=== PATIENT | male | born 1945 | race American Indian/Alaskan Native ===

== ENCOUNTER → 2017-04-29 | Outpatient (CLI) | payer MEDICARE, OTHER, SELFPAY | PROVIDERS: PCP Physician Assistant; Visit Provider Physician Assistant | DX: R60.0 Localized edema (principal); M79.605 Pain in left leg | CPT/HCPCS: 36415; 80053; 80061; 82043; 82570; 83880; 85025; 85379; 93971 ==

== ENCOUNTER → 2017-12-09 09:45 | Outpatient (CLI) | payer MEDICARE, OTHER, SELFPAY ==
--- NOTE | 2017-12-09 | DI.RAD.S_ITS ---
PROCEDURE: XR CHEST 2V INDICATIONS: COUGH TECHNIQUE: 2 views of the chest were acquired. COMPARISON: [facility], , CHEST 1 VIEW, 01/26/2008, 12:43. [facility], RG, XR CXR 2 VIEW, 01/28/2006, 13:38. [facility], CR, CHEST 2 VIEW, 04/23/2016, 10:31. [facility], , CHEST 2 VIEW, 05/06/2017, 21:34. [facility], CHEST 1 VIEW, 05/12/2017, 9:22. FINDINGS: Surgical changes and devices: None. Lungs and pleura: There is blunting of the right costophrenic sulcus and focal airspace opacities which appear similar to prior studies dating back to 04/23/16. The lungs are otherwise clear. Mediastinum: Mediastinal contours are normal. Heart size is normal. Bones and chest wall: No suspicious bony abnormalities. Soft tissues appear unremarkable. IMPRESSION: Findings at the right lateral lung base which may represent scarring of the lung and pleura; however superimposed airspace opacities or lung mass cannot be excluded. If further characterization is warranted, short interval followup or CT may be helpful. Dictated by: Amanda Hood M.D. on 12/09/2017 at 10:18 Approved by: Amanda Hood M.D. on 12/09/2017 at 10:19
[2017-12-09 11:44] LABS: Add Manual Diff / Slide Review NO; Basophils Percent Auto 0.6 % (0-2); Eosinophils Percent Auto 0.2 % (2-4); Hematocrit 32.9 % (41-53); Hemoglobin 11.2 g/dL (13.5-17.5); Lymphocytes Percent Auto 12.7 % (25-40); Mean Corpuscular HGB Conc 34.2 % (30-36); Mean Corpuscular Hemoglobin 28.1 PG (26-34); Mean Corpuscular Volume 82.1 fL (80-100); Monocytes Percent Auto 11.3 % (3-14); Neutrophils Absolute Auto 6800 /uL (3000-5900); Neutrophils Percent Auto 75.2 % (50-75); Platelet Count 118 X10^3/uL (150-400); Red Blood Cell Count 4.01 X10^6/uL (4.5-5.9); Red Cell Distribution Width 15.7 % (11.6-14.8)
[2017-12-09 12:00] LABS: BUN Creatinine Ratio 17.3 (6-22); Blood Urea Nitrogen 38 mg/dL (9-20); Calcium 8.7 mg/dL (8.4-10.2); Carbon Dioxide 25 mmol/L (22-32); Chloride 98 mmol/L (98-107); Estimated Glomerular Filt Rate 29.7 mL/min (>60); Glucose 167 mg/dL (80-110); HEMOLYSIS < 15 (0-50); Potassium 5.2 mmol/L (3.4-5.1); Sodium 137 mmol/L (137-145)
== END ==
PROVIDERS: Visit Provider Family Medicine
DX: R05 Cough (principal); I50.9 Heart failure, unspecified; N18.9 Chronic kidney disease, unspecified; R91.8 Other nonspecific abnormal finding of lung field
CPT/HCPCS: 36415; 71046; 80048; 85025

== ENCOUNTER → 2018-01-04 10:55 | Outpatient (CLI) | payer MEDICARE, OTHER, SELFPAY ==
--- NOTE | 2018-01-04 | DI.CT.S_ITS ---
PROCEDURE: CT CHEST WO CON INDICATIONS: 72 year-old female with possible lesion at the right costophrenic sulcus on recent radiographs. TECHNIQUE: Noncontrast 5 mm thick sections acquired from the pulmonary apices to the posterior costophrenic angles. 7 mm thick coronal and sagittal MIP reformats were then acquired. For radiation dose reduction, the following was used: automated exposure control, adjustment of mA and/or kV according to patient size. COMPARISON: [facility], CR, XR CHEST 2V, 12/09/2017, 9:48. [facility], , CHEST 1 VIEW, 05/12/2017, 9:22. FINDINGS: Image quality: Excellent. Lungs and pleura: No acute air space opacities. Posterior right apical scarring is unchanged since 2006. On image 15, 4 mm posterior right upper lobe groundglass opacity is also unchanged since 2005, reassuring for benignity. 3 mm nodule adjacent to the right minor fissure is also unchanged. Medial right lower lobe calcified granuloma is incidentally noted, as well as anteroinferior right upper lobe granuloma. No pleural effusions or pneumothorax. Central and peripheral airways are patent and normal in caliber. Mediastinum: Heart size is normal, status post coronary artery bypass grafting. No pericardial effusion. No mediastinal adenopathy by size criteria. Thoracic aorta and central pulmonary arteries are normal in size. Esophagus is normal in caliber. No hiatal hernia. Bones and chest wall: No suspicious bony lesions. No vertebral body compression fractures. No axillary or supraclavicular adenopathy by size criteria. Thyroid gland is normal in size. Abdomen: Several tiny dependent calcified gallstones are now present. Other visualized upper abdominal solid organs and bowel loops appear normal in the absence of contrast. IMPRESSION: 1. No pathology of the right costophrenic angle to correspond with previously reported radiographic finding. 2. Several right lung nodules are unchanged since 2005, reassuring for benignity. Background pulmonary remote granulomatous disease. 3. Several tiny dependent calcified gallstones appear new since 2007. Dictated by: Sixto Edge M.D. on 01/04/2018 at 12:33 Approved by: Sixto Edge M.D. on 01/04/2018 at 12:42
== END ==
PROVIDERS: Visit Provider Family Medicine
DX: R91.8 Other nonspecific abnormal finding of lung field (principal)
CPT/HCPCS: 71250

== ENCOUNTER 2018-05-27 10:20 | Day surgery (SDC) | payer MEDICARE, OTHER, SELFPAY ==
[2018-05-27 10:45] VITALS: BP 156/83; PULSE 71; RESP 16; TEMP 36.8; O2SAT 98; BMI 31.2
[2018-05-27] MEDS: PROPARACAINE 0.5% OPHTH SOL 2 DROPS EYE-OP (11:01)
[2018-05-27] MEDS: CATARACT EYE COMPOUND (10 DROPS/SYRINGE) 3 DROPS EYE-OP (11:03)
[2018-05-27 11:13] VITALS: BMI 31.2
--- NOTE | 2018-05-27 11:33 | PM.PREOP ---
Pre-operative Note Interval Note Pre-op Check: Yes History & Physical Reviewed by Physician Changes: No
--- NOTE | 2018-05-27 11:37 | PM.OP.1 ---
Procedure & Clinicians Procedure: cataract extraction with intraocular lens implant, right Same procedure as scheduled: Yes Indications: visually significant cataract, nuclear sclerosis Surgeon: Len Medina Operative Notes Procedure in detail: The patient was brought to the operating suite. The correct patient, surgical site and lens were confirmed. 0.5 % tetracaine drops were placed in the left eye. The patient was prepped and draped in the typical sterile manner. A lid speculum was placed in the eye. A paracentesis port was created with a side-port blade. 0.1 mL of 1% preservative free lidocaine was injected into the anterior chamber. Viscoelastic was injected into the anterior chamber. A 2.6mm keratome was used to create a clear corneal temporal incision. Cystotome and Utrata forceps were used to create a continuous curvilinear capsulorrhexis. Balanced salt solution was used to hydrodissect the nucleus. Phacoemulsification was used to remove the lens. The capsular bag was inflated with viscoelastic. A Walls ZBOO +22.5D lens was inserted into the capsule. Viscoelastic was removed and the wound hydrated. The wound was found to be leak free and the eye was assessed to be at normal physiologic pressure. 0.1mL Vigamox was injected into the anterior chamber. The lid speculum was removed and the patient left the operating room in excellent condition. Complications: none Condition: stable Disposition: same day surgery
[2018-05-27] MEDS: MOXIFLOXACIN OPHTH DROPS 3 ML BOTTLE 2 DROPS INJ (12:30)
[2018-05-27] MEDS: PHENYLEPHRINE/LIDOCAINE VIAL (OR) 0.2 ML EYE-OP (12:30)
[2018-05-27] MEDS: CHONDROIDTIN/SOD HYALURONATE 1.05 ML SYRINGE INTRAOCULA (12:31)
[2018-05-27] MEDS: BALANCED SALT IRRIG SOLN NO.2 15 ML IRRIG.SOLN IRR (12:31)
[2018-05-27] MEDS: BALANCED SALT IRRIG SOLN NO.2 500 ML, EPINEPHrine 1 MG IRR (12:32)
[2018-05-27] MEDS: TETRACAINE 0.5% OPHTH DROPS 15 ML 2 DROPS EYE-RIGHT (12:33)
[2018-05-27] MEDS: LIDOCAINE 2% INJ SDV 1 ML INJ (12:34)
[2018-05-27 12:57] VITALS: BP 148/81; PULSE 58; RESP 16; TEMP 36.6; O2SAT 96
== END 2018-05-27 13:08 | disposition home or self-care (01) ==
LOC: OR 10:21
PROVIDERS: Visit Provider Ophthalmology
DX: H25.11 Age-related nuclear cataract, right eye (principal); I10 Essential (primary) hypertension; E66.9 Obesity, unspecified; I51.9 Heart disease, unspecified
CPT/HCPCS: J0171; J2250; J3010

== ENCOUNTER 2020-12-25 10:09 | Observation (INO) | payer MEDICARE, OTHER, SELFPAY ==
[2020-12-25] VITALS (20 sets, daily range): BP systolic 131–164; BP diastolic 85–104; PULSE 97–120; RESP 18–38; TEMP 36.4–37.1; O2SAT 95–99; BMI 34.4; BMI 32.2
--- NOTE | 2020-12-25 10:23 | DI.RAD.S_ITS ---
PROCEDURE: XR CHEST 1V INDICATIONS: chest pain TECHNIQUE: One view of the chest was acquired. COMPARISON: [facility], CR, XR CHEST 2V, 12/09/2017, 9:48. [facility], CR, CHEST 1 VIEW, 05/12/2017, 9:22. FINDINGS: Surgical changes and devices: Sternotomy wires, presumed prior CABG.. Lungs and pleura: Lungs are minimally abnormal with a small degree of interstitial prominence at the right mid and lower lung, with slight prominence of the minor fissure radiodensity suggestive of likelihood of old inflammatory process in this area as the likely cause. This has not appreciably changed from 2017. . No pleural effusions or pneumothorax. Mediastinum: Mediastinal contours appear normal. Heart size is normal. Bones and chest wall: No suspicious bony lesions. Overlying soft tissues appear unremarkable. IMPRESSION: Sternotomy wires, longstanding mild interstitial prominence and thickening of the manual fissure on the right at the mid and lower lung. This is stable from 2017. Presumed scarring from prior inflammatory event. No definite acute disease. Dictated by: Michael Castillo M.D. on 12/25/2020 at 10:40 Approved by: Michael Castillo M.D. on 12/25/2020 at 10:41
[2020-12-25 10:43] LABS: Add Manual Diff / Slide Review NO; Basophils Absolute Auto 100 /uL (0-100); Basophils Percent Auto 0.7 % (0-2); Eosinophils Absolute Auto 100 /uL (0-450); Eosinophils Percent Auto 0.9 % (2-4); Hemoglobin 14.1 g/dL (13.5-17.5); Lymphocytes Absolute Auto 1300 /uL (1100-4500); Lymphocytes Percent Auto 16.3 % (25-40); Mean Corpuscular HGB Conc 32.8 % (30-36); Mean Corpuscular Hemoglobin 26.6 PG (26-34); Monocytes Absolute Auto 600 /uL (0-900); Monocytes Percent Auto 7.9 % (3-14); Neutrophils Absolute Auto 6000 /uL (1500-7000); Neutrophils Percent Auto 74.2 % (50-75); Platelet Count 154 X10^3/uL (150-400); Red Blood Cell Count 5.31 X10^6/uL (4.5-5.9); Red Cell Distribution Width 14.9 % (11.6-14.8); White Blood Cell Count 8.1 X10^3/uL (4.5-11.0)
[2020-12-25 10:55] LABS: Alanine Aminotransferase 16 IU/L (<50); Albumin 3.8 g/dL (3.5-5.0); Alkaline Phosphatase 155 U/L (38-126); Aspartate Aminotransferase 24 IU/L (17-59); BUN Creatinine Ratio 13.4 (6-22); Bilirubin Total 0.7 mg/dL (0.2-1.3); Blood Urea Nitrogen 19 mg/dL (9-20); Calcium 8.9 mg/dL (8.4-10.2); Carbon Dioxide 23 mmol/L (22-32); Chloride 104 mmol/L (98-107); Creatine Kinase 80 U/L (55-170); Estimated Glomerular Filt Rate 48.9 mL/min (>60); Globulin 3.7 g/dL (1.7-4.1); Glucose 285 mg/dL (80-110); HEMOLYSIS < 15 (0-50); Lipase 203 U/L (23-300); Potassium 4.5 mmol/L (3.4-5.1); Sodium 135 mmol/L (137-145); Total Protein 7.5 g/dL (6.3-8.2)
[2020-12-25 11:06] LABS: Troponin I 0.031 ng/mL (0.01-0.034)
--- NOTE | 2020-12-25 11:58 | ED.CHESTPAIN ---
HPI - Chest Pain General Chief Complaint: Chest Pain Stated Complaint: sob/chest pain Time Seen by Provider: 12/25/20 11:56 Source: patient Mode of arrival: Ambulatory Limitations: no limitations History of Present Illness HPI narrative: Increasing shortness of breath and intermittent chest pressure. Patient states he has had shortness of breath and off for the mast month and half and just increasing fatigue but states that he ran out of his medications 4 days ago and has subsequently become much more short of breath. He has also noticed some substernal chest pressure over the last 3 or 4 days. Patient states it does not radiate elsewhere. He has not had any lightheadedness or passing out. He denies any fevers or chills he has had a mild cough but it has been nonproductive. Patient denies any diaphoresis. He denies any abdominal pain. He denies any nausea or vomiting. No diarrhea constipation. He has not had any issues with urination. He denies any new swelling in his extremities. 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 He has some difficulty giving his history but states he had a 4 vessel coronary bypass in 2011, patient states he does not follow cardiology regularly but falls at the [facility] clinic. He knows he takes metformin daily, daily aspirin and medication for blood pressure and probably cholesterol. He states that he was going to go the clinic a week before he ran out of his medications and was told they did have an appointment for another month and had subsequently ran out of his medications awaiting follow-up. He denies any other surgeries besides bypass. No allergies to medications. Tobacco, no alcohol, no illicit. Related Data Home Medications Medication Instructions Recorded Confirmed aspirin 81 mg PO BID #0 01/11/06 12/25/20 carvedilol [Coreg] 6.25 mg PO DAILY #0 05/07/17 12/25/20 atorvastatin 40 mg DAILY 05/27/18 12/25/20 metformin 40 mg DAILY 05/27/18 12/25/20 furosemide 80 mg OR DAILY 12/25/20 12/25/20 Previous Rx's Medication Instructions Recorded lisinopril 5 mg PO QDAY #30 05/15/17 potassium chloride [Klor-Con M20] 20 meq PO [facility] #30 05/15/17 Allergies Allergy/AdvReac Type Severity Reaction Status Date / Time No Known Drug Allergies Allergy Verified 12/25/20 10:24 Review of Systems Review of Systems ROS Unobtainable: All systems reviewed & are unremarkable except as noted in HPI and below Patient History Surgical History S/P CABG x 4 Social History (Updated 12/25/20 @ 12:21 by Sarah Mays DO) household members: spouse Smoking Status: Never smoker Smoking Status: Unknown if ever smoked alcohol intake frequency: holidays/special occasions only Substance Use Type: does not use Exam Narrative Exam Narrative: GENERAL: Alert and oriented x three, obese male the BMI of 34 in mild distress. Patient is lying fairly flat on the bed. HEENT: Head normocephalic, atraumatic, EOMI, pupils reactive, face symmetric, moist mucous membranes NECK: Supple, full range of motion CARDIOVASCULAR: Regular but tachycardic rate and rhythm without murmurs, rubs or gallops. No swelling bilateral lower extremities. RESPIRATORY: Breath sounds equal bilaterally, no wheezes rales or rhonchi. Patient does have mild tachypnea. Speaks in full sentences. ABDOMEN: Soft, nontender. Normoactive bowel sounds all 4 quadrants. No guarding or rebound, rigidity, no mass : No CVA tenderness EXTREMITIES: Normal range of motion, no clubbing or edema. Neurovascularly intact. 2+ pulses bilateral lower extremities. NEUROLOGICAL: Cranial nerves II through XII grossly intact. Moving all extremities SKIN: Warm, dry, no petechiae, no rashes or lesions. Initial Vital Signs Initial Vital Signs: Vital Signs Temperature 97.7 F 12/25/20 10:15 Pulse Rate 118 H 12/25/20 10:15 Respiratory Rate 32 H 12/25/20 10:15 Blood Pressure 133/95 H 12/25/20 10:15 Pulse Oximetry 99 12/25/20 10:15 Course Orders Ordered: ED Orders 12/25/20 10:20 Complete Blood Count AUTO DIFF Stat Comprehensive Metabolic Panel Stat Lipase Stat Troponin & CK Cardiac Panel Stat 12/25/20 10:23 XR chest 1V Stat EKG-12 Lead Stat 12/25/20 12:30 COVID19 - ADMIT (LAMINATOR swab/PCR) Stat 12/25/20 12:32 NT-proBNP (BNP-Adult 18+) Stat Troponin I Stat 12/25/20 14:40 Urinalysis and Microscopic Stat 12/25/20 14:51 CT angio chest PE protocol Stat Acetaminophen (Acetaminophen 325 Mg Tablet) 650 mg PO Q6HR PRN PRN Reason: Fever/Mild Pain (1-3) Aspirin (Aspirin Ec 81 Mg Tablet) 81 mg PO DAILY MIGUEL ANGEL Atorvastatin Calcium (Atorvastatin 20 Mg Tablet) 40 mg PO BEDTIME MIGUEL ANGEL Carvedilol (Carvedilol 3.125 Mg Tablet) 3.125 mg PO BID [facility] Dextrose (Dextrose 50 % In Water 25 Gm/50 Ml Syringe) 25 gm IV PRN PRN PRN Reason: Hypoglycemia Furosemide (Furosemide 40 Mg/4 Ml Vial) 40 mg IV BID [facility] Heparin Sodium (Porcine) (Heparin 5,000 Unit/Ml Vial) 5,000 unit SUBCUT BID [facility] Insulin Human Lispro (Insulin Lispro 100 Unit/Ml 3ml Vial) 0 unit SUBCUT ACHS [facility]; Protocol Last Admin: 12/25/20 16:55 Dose: 3 unit Documented by: ROSS Cosigned by: RADHIKA Naloxone HCl (Naloxone 0.4 Mg/Ml Vial) 0.2 mg IV Q2MIN PRN PRN Reason: Opiate Reversal Discontinued Medications Carvedilol (Carvedilol 3.125 Mg Tablet) 3.125 mg PO NOW ONE Stop: 12/25/20 16:36 Last Admin: 12/25/20 16:59 Dose: 3.125 mg Documented by: ROSS Furosemide (Furosemide 100 Mg/10 Ml Vial) 80 mg IV NOW ONE Stop: 12/25/20 13:16 Last Admin: 12/25/20 13:28 Dose: 80 mg Documented by: TIERRA Reevaluation(s) Reevaluation #1: Patient ambulates he does not drop his pulse ox but he continues to be quite tachycardic and tachypneic. Patient has received Lasix. His pressure is a little bit higher which potentially give him some nitrates. We are attempting to get a list from the [facility] clinic for recent medications. Patients last visit was in 2019. Patient's pulse ox is not drop with ambulation but he is quite tachypneic and tachycardic. Time: 14:29 Vital Signs Vital signs: Vital Signs - 8 hr 12/25/20 11:00 12/25/20 11:30 12/25/20 12:00 Pulse Rate 110 H 111 H 110 H Respiratory Rate 34 H 34 H 35 H Blood Pressure 141/85 H 132/85 143/91 H Pulse Oximetry 97 97 96 12/25/20 12:30 12/25/20 13:00 12/25/20 13:30 Pulse Rate 114 H 113 H 113 H Respiratory Rate 35 H 33 H 33 H Blood Pressure 131/93 H 146/92 H 144/99 H Pulse Oximetry 98 97 97 12/25/20 14:00 12/25/20 14:17 12/25/20 14:18 Pulse Rate 110 H 119 H 120 H Respiratory Rate 33 H 33 H Blood Pressure 151/90 H 138/98 H 153/98 H Pulse Oximetry 97 96 97 12/25/20 14:30 12/25/20 14:31 12/25/20 15:00 Pulse Rate 112 H 112 H 113 H Respiratory Rate 34 H 38 H 37 H Blood Pressure 150/98 H 156/88 H Pulse Oximetry 97 96 98 MDM - Chest Pain Lab Data Attestation: I reviewed the patient's lab results. Result diagrams: 12/25/20 10:20 12/25/20 10:20 Labs: Lab Results 12/25/20 12/25/20 12/25/20 Range/Units 10:20 10:20 12:30 WBC 8.1 (4.5-11.0) X10^3/uL RBC 5.31 (4.5-5.9) X10^6/uL Hgb 14.1 (13.5-17.5) g/dL Hct 43.0 (41-53) % MCV 81.0 (80-100) fL MCH 26.6 (26-34) PG MCHC 32.8 (30-36) % RDW 14.9 H (11.6-14.8) % Plt Count 154 (150-400) X10^3/uL Neut % (Auto) 74.2 (50-75) % Lymph % (Auto) 16.3 L (25-40) % [place] % (Auto) 7.9 (3-14) % Eos % (Auto) 0.9 L (2-4) % Baso % (Auto) 0.7 (0-2) % Neut # (Auto) 6000 (9813-5731) /uL Lymph # (Auto) 1300 (0120-4491) /uL [place] # (Auto) 600 (0-900) /uL Eos # (Auto) 100 (0-450) /uL Baso # (Auto) 100 (0-100) /uL Sodium 135 L (137-145) mmol/L Potassium 4.5 (3.4-5.1) mmol/L Chloride 104 (98-107) mmol/L Carbon Dioxide 23 (22-32) mmol/L BUN 19 (9-20) mg/dL Creatinine 1.42 H (0.66-1.25) mg/dL Estimated GFR 48.9 L (>60) mL/min BUN/Creatinine Ratio 13.4 (6-22) Glucose 285 H (80-110) mg/dL Calcium 8.9 (8.4-10.2) mg/dL Total Bilirubin 0.7 (0.2-1.3) mg/dL AST 24 (17-59) IU/L ALT 16 (<50) IU/L Alkaline Phosphatase 155 H (38-126) U/L Total Creatine Kinase 80 (55-170) U/L CK-MB (CK-2) TNP CK-MB (CK-2) Rel Index TNP Troponin I 0.031 (0.01-0.034) ng/mL NT-Pro-B Natriuret Pep (<125) pg/mL Total Protein 7.5 (6.3-8.2) g/dL Albumin 3.8 (3.5-5.0) g/dL Globulin 3.7 (1.7-4.1) g/dL Albumin/Globulin Ratio 1.0 (1.0-2.8) Lipase 203 (23-300) U/L Urine Color Urine Appearance Urine pH (4.5-8.0) Ur Specific [place] (1.000-1.035) Urine Protein (Negative) Urine Glucose (UA) (Negative) g/dL Urine Ketones (NEGATIVE) Urine Occult Blood (Negative) Urine Nitrate (Negative) Urine Bilirubin (NEGATIVE) Urine Urobilinogen (0.2) E.U./dL Ur Leukocyte Esterase (NEGATIVE) Urine RBC (0-5/HPF) Urine WBC (0-5/HPF) Ur Squamous Epith Cells (0-5/HPF) Amorphous Sediment Urine Bacteria (None) Urine Mucus (Negative) Ur Culture Indicated? SARS-CoV-2 (PCR) Negative (Negative) 12/25/20 12/25/20 12/25/20 Range/Units 12:32 12:32 14:40 WBC (4.5-11.0) X10^3/uL RBC (4.5-5.9) X10^6/uL Hgb (13.5-17.5) g/dL Hct (41-53) % MCV (80-100) fL MCH (26-34) PG MCHC (30-36) % RDW (11.6-14.8) % Plt Count (150-400) X10^3/uL Neut % (Auto) (50-75) % Lymph % (Auto) (25-40) % [place] % (Auto) (3-14) % Eos % (Auto) (2-4) % Baso % (Auto) (0-2) % Neut # (Auto) (0204-0549) /uL Lymph # (Auto) (0176-2840) /uL [place] # (Auto) (0-900) /uL Eos # (Auto) (0-450) /uL Baso # (Auto) (0-100) /uL Sodium (137-145) mmol/L Potassium (3.4-5.1) mmol/L Chloride (98-107) mmol/L Carbon Dioxide (22-32) mmol/L BUN (9-20) mg/dL Creatinine (0.66-1.25) mg/dL Estimated GFR (>60) mL/min BUN/Creatinine Ratio (6-22) Glucose (80-110) mg/dL Calcium (8.4-10.2) mg/dL Total Bilirubin (0.2-1.3) mg/dL AST (17-59) IU/L ALT (<50) IU/L Alkaline Phosphatase (38-126) U/L Total Creatine Kinase (55-170) U/L CK-MB (CK-2) CK-MB (CK-2) Rel Index Troponin I 0.028 (0.01-0.034) ng/mL NT-Pro-B Natriuret Pep 7910 H (<125) pg/mL Total Protein (6.3-8.2) g/dL Albumin (3.5-5.0) g/dL Globulin (1.7-4.1) g/dL Albumin/Globulin Ratio (1.0-2.8) Lipase (23-300) U/L Urine Color Yellow Urine Appearance Clear Urine pH 6.0 (4.5-8.0) Ur Specific [place] 1.025 (1.000-1.035) Urine Protein 3+ H (Negative) Urine Glucose (UA) 2+ H (Negative) g/dL Urine Ketones Negative (NEGATIVE) Urine Occult Blood 1+ H (Negative) Urine Nitrate Negative (Negative) Urine Bilirubin Negative (NEGATIVE) Urine Urobilinogen 0.2 (0.2) E.U./dL Ur Leukocyte Esterase Negative (NEGATIVE) Urine RBC 0-1/hpf (0-5/HPF) Urine WBC 0-1/hpf (0-5/HPF) Ur Squamous Epith Cells 0-1 /hpf (0-5/HPF) Amorphous Sediment 1+ Urine Bacteria None seen (None) Urine Mucus 1+ H (Negative) Ur Culture Indicated? Cult not indicated SARS-CoV-2 (PCR) (Negative) Imaging Data Chest x-ray: Radiologist's Impression: [address] [id number] ReportSigned Patient: Garland Guerrero R#: [id number]: 8Acct:[id number]/Sex: 75 / MDate of Service: 12/25/20Loc: EDAccession Number: [id number] Procedure: XR chest 1V Ordering Provider: Sarah Mays D.O. PROCEDURE: XR CHEST 1V INDICATIONS: chest pain TECHNIQUE: One view of the chest was acquired. COMPARISON: [facility], XR CHEST 2V, 12/09/2017, 9:48. [facility], CHEST 1 VIEW, 05/12/2017, 9:22. FINDINGS: Surgical changes and devices: Sternotomy wires, presumed prior CABG.. Lungs and pleura: Lungs are minimally abnormal with a small degree of interstitial prominence at the right mid and lower lung, with slight prominence of the minor fissure radiodensity suggestive of likelihood of old inflammatory process in this area as the likely cause. This has not appreciably changed from 2017. . No pleural effusions or pneumothorax. Mediastinum: Mediastinal contours appear normal. Heart size is normal. Bones and chest wall: No suspicious bony lesions. Overlying soft tissues appear unremarkable. IMPRESSION: Sternotomy wires, longstanding mild interstitial prominence and thickening of the manual fissure on the right at the mid and lower lung. This is stable from 2017. Presumed scarring from prior inflammatory event. No definite acute disease. Dictated by: Michael Castillo M.D. on 12/25/2020 at 10:40 Approved by: Michael Castillo M.D. on 12/25/2020 at 10:41 CT scan - chest: Radiologist's Impression: [address] [id number] Scan ReportSigned Patient: Garland Guerrero HMR#: [id number]: 8Acct:[id number]/Sex: 75 / MDate of Service: 12/25/20Loc: EDAccession Number: [id number] Procedure: CT angio chest PE protocol Ordering Provider: Sarah Mays D.O. PROCEDURE: CT ANGIO CHEST PE PROTOCOL INDICATIONS: shortness of breath TECHNIQUE: After the administration of intravenous contrast, 2 mm thick sections acquired from the pulmonary apices to the posterior costophrenic angles. 3-dimensional maximum intensity projection (MIP) coronal and sagittal reformats were then acquired through the thorax. For radiation dose reduction, the following was used: automated exposure control, adjustment of mA and/or kV according to patient size. COMPARISON: [facility], CT, CT CHEST WO CON, 01/04/2018, 11:13. [facility], CR, XR CHEST 1V, 12/25/2020, 10:25. FINDINGS: Image quality: Excellent. Pulmonary arteries: Pulmonary arteries are normal in size, and demonstrate no intraluminal filling defects to suggest central pulmonary embolism. Lungs and pleura: Lungs are clear. No pleural effusions or pneumothorax. There is a small degree of pleural thickening along the major fissure, without nodularity or effusion. Central and peripheral airways are patent. Mediastinum: Heart size is normal, without pericardial effusion. No mediastinal or hilar adenopathy. Thoracic aorta is normal in caliber and enhancement. Esophagus is normal in caliber, without hiatal hernia. Bones and chest wall: No suspicious bony lesions. Ribs and thoracic spine appear intact throughout. Thyroid gland except for several small areas of what appears to be linear scarring at the lung parenchyma. Mild secondary atelectasis is noted at the posterior lung bases. No pleural effusion or mass is found.. No axillary or supraclavicular adenopathy. Abdomen: Visualized upper abdominal solid organs appear normal in the early arterial phase of enhancement. IMPRESSION: Mild pleural thickening along the right major fissure, no pleural effusion seen. Mild posterior lung base atelectasis. The pleural thickening on the right discussed above was not present in December of 2017. Follow-up noncontrast CT scanning in 3 months is recommended to assess for stability of appearance over time of this finding. The likelihood of active pleural infection or neoplasm is considered low but documentation of stability over time appears warranted. Dictated by: Michael Castillo M.D. on 12/25/2020 at 15:04 Approved by: Michael Castillo M.D. on 12/25/2020 at 15:11 ECG Data Attestation: I personally reviewed and interpreted this ECG as follows: Prior ECG tracings: available for review Interpretation: Sinus tachycardia occasional PVC. Rate of 112 WI 144 QRS of 130 QTC of 520. Patient does have right bundle-branch block. Patient has prior EKG from 05/06/2017, patient has some upsloping of his T-waves in the 5 through 6 that is not appreciated on his prior EKG no other new EKG changes are appreciated. Sinus tachycardia with occassional PVCs, RBBB, rate of 114, pr of 140, qrs 132, QTc 509. Patient's ST segments appear similar to prior with no new acute changes appreciated. [facility] Narrative Medical decision making narrative: A pleasant 75-year-old male comes emergency department with increasing shortness of breath which has been continuous and chest pain/pressure which is not present here in the department. Patient states that he takes medications for prior coronary artery disease and has had bypass. He takes metformin, lisinopril and Lasix and is unsure about his other medications but believes he does take a statin and likely an aspirin. Patient states that he ran out of his medications 4 days ago. He states he tried to get them refilled about a week ago but was told he could follow-up in a month. Patient was having some increasing shortness of breath over the last 6 weeks but acutely worse in the last 2-3 days. He has been afebrile with no other infectious. Patient has been tachypneic and tachycardic in the department he was given Lasix some output. Chest x-ray did not show any obvious pulmonary edema. Discussed with the hospitalist who asked for CT angio as there is no clear pulmonary edema but does show some pleural thickening. Although he does have quite elevated BNP. His troponin is stable here in the department. Patient was accepted and placed here for observation. Discharge Plan Departure Patient Disposition: Admitted as Observation Clinical Impression: Acute exacerbation of CHF (congestive heart failure) Admit Date/Time: 12/25/20 15:25 Admit Provider: Juan Mcnamara
[2020-12-25 13:12] LABS: Troponin I 0.028 ng/mL (0.01-0.034)
[2020-12-25 13:13] LABS: NT-proBNP (BNP-Adult 18+) 7910 pg/mL (<125)
[2020-12-25] MEDS: FUROSEMIDE 100 MG/10 ML VIAL 80 MG IV (13:28)
[2020-12-25 13:56] LABS: COVID19 - ADMIT (NP swab/PCR) Negative (Negative)
--- NOTE | 2020-12-25 14:51 | DI.CT.S_ITS ---
PROCEDURE: CT ANGIO CHEST PE PROTOCOL INDICATIONS: shortness of breath TECHNIQUE: After the administration of intravenous contrast, 2 mm thick sections acquired from the pulmonary apices to the posterior costophrenic angles. 3-dimensional maximum intensity projection (MIP) coronal and sagittal reformats were then acquired through the thorax. For radiation dose reduction, the following was used: automated exposure control, adjustment of mA and/or kV according to patient size. COMPARISON: [facility], CT, CT CHEST WO CON, 01/04/2018, 11:13. [facility], CR, XR CHEST 1V, 12/25/2020, 10:25. FINDINGS: Image quality: Excellent. Pulmonary arteries: Pulmonary arteries are normal in size, and demonstrate no intraluminal filling defects to suggest central pulmonary embolism. Lungs and pleura: Lungs are clear. No pleural effusions or pneumothorax. There is a small degree of pleural thickening along the major fissure, without nodularity or effusion. Central and peripheral airways are patent. Mediastinum: Heart size is normal, without pericardial effusion. No mediastinal or hilar adenopathy. Thoracic aorta is normal in caliber and enhancement. Esophagus is normal in caliber, without hiatal hernia. Bones and chest wall: No suspicious bony lesions. Ribs and thoracic spine appear intact throughout. Thyroid gland except for several small areas of what appears to be linear scarring at the lung parenchyma. Mild secondary atelectasis is noted at the posterior lung bases. No pleural effusion or mass is found.. No axillary or supraclavicular adenopathy. Abdomen: Visualized upper abdominal solid organs appear normal in the early arterial phase of enhancement. IMPRESSION: Mild pleural thickening along the right major fissure, no pleural effusion seen. Mild posterior lung base atelectasis. The pleural thickening on the right discussed above was not present in December of 2017. Follow-up noncontrast CT scanning in 3 months is recommended to assess for stability of appearance over time of this finding. The likelihood of active pleural infection or neoplasm is considered low but documentation of stability over time appears warranted. Dictated by: Michael Castillo M.D. on 12/25/2020 at 15:04 Approved by: Michael Castillo M.D. on 12/25/2020 at 15:11
[2020-12-25 15:14] LABS: Bacteria Urine None Seen
[2020-12-25 15:16] LABS: Appearance Urine UA CLEAR; Bilirubin Urine UA NEGATIVE (NEGATIVE); Color Urine UA YELLOW; Glucose Urine UA 2+ g/dL (Negative); Ketones Urine UA NEGATIVE (NEGATIVE); Leukocyte Esterase Urine UA NEGATIVE (NEGATIVE); Nitrite Urine UA NEGATIVE (Negative); Occult Blood Urine UA 1+ (Negative); Protein Urine UA 3+ (Negative); Specific Gravity Urine UA 1.025 (1.000-1.035); Urobilinogen Urine UA 0.2 E.U./dL (0.2)
[2020-12-25 15:23] LABS: Amorphous Sediment Urine 1+; RBC Urine 0-1/HPF (0-5/HPF); Squamous Epithelial Cell Urine 0-1 /HPF (0-5/HPF); WBC Urine 0-1/HPF (0-5/HPF)
[2020-12-25 15:24] LABS: Culture Indicated Urine Cult Not Indicated; Mucus Urine 1+ (Negative)
--- NOTE | 2020-12-25 15:40 | P.HP_ITS ---
History of Present Illness History of Present Illness Date Patient Seen: 12/25/20 Time Patient Seen: 14:51 Chief complaint: sob/chest pain Narrative: Mr. Guerrero is a 75M with PMH of CAD s/p CABG in 2011, DM, HTN, HL, ?CHF who comes in with shortness of breath. He states he had been in his normal state of health but ran out of his medications four days ago. He started developing some left sided pain in his chest. He has been developing progressively worsening shortness of breath. He is currently not having any chest pressure. He did not have any lightheadedness, no fevers/chills. He has a mild cough that is nonproductive. He has no abdominal pain, nausea, vomiting. He has noticed no swelling in his extremities. He is usually fairly active, does things like splitting wood, but has been short of breath even at rest. In the ED, he was noted to be tachycardic with heart rate of 110s, in sinus. Respiratory rate in 30s, normal o2 sats. Normal blood pressure. Labs showed WBC 8.1, hgb 14.1, na 135, bun 19, creatinine 1.42, last baseline may be 1.2 but was back in May 2017. Blood sugar 285. Trop 0.031, then 0.028. BNP 7910. Cxray showed no acute process. CTA chest showed pleural thickening on the right. COVID negative. UA negative for infection. He was given lasix and admitted for further treatment. Denies family history of CHF Patient History Surgical History S/P CABG x 4 Family & Social History Social History: household members spouse Safety & Behavioral: Feels Safe in Current Yes Environment Been Physically Hurt or No Threatened By a Person Tobacco & Substance use: Smoking Status Never smoker alcohol intake frequency holiday/special occasion Substance Use Type does not use Meds Home Medications and Allergies Home Medications Medication Instructions Recorded Confirmed Type aspirin 81 mg PO QDAY #0 01/11/06 05/27/18 History NITROGLYCERIN (Nitrostat) 0.4 mg SUBLINGUAL PRN #0 01/28/06 History carvedilol [Coreg] 6.25 mg PO BID #0 05/07/17 05/27/18 History furosemide 80 mg OR BID #60 05/15/17 05/27/18 Rx lisinopril 5 mg PO QDAY #30 05/15/17 05/27/18 Rx potassium chloride [Klor-Con M20] 20 meq PO AMCC #30 05/15/17 05/27/18 Rx Oyster Shell + D3 500 mg 05/27/18 History atorvastatin 40 mg DAILY 05/27/18 05/27/18 History metformin 40 mg DAILY 05/27/18 05/27/18 History Allergies Allergy/AdvReac Type Severity Reaction Status Date / Time No Known Drug Allergies Allergy Verified 12/25/20 10:24 Review of Systems Review of Systems Narrative: 14 systems reviewed and negative aside from what is noted in HPI Exam Vital Signs (past 8 hours): - 12/25/20 10:15 12/25/20 10:33 12/25/20 11:00 Temperature 97.7 F Pulse Rate 118 H 110 H 110 H Respiratory Rate 32 H 34 H 34 H Blood Pressure 133/95 H 141/85 H Pulse Oximetry 99 97 97 12/25/20 11:30 12/25/20 12:00 12/25/20 12:30 Temperature Pulse Rate 111 H 110 H 114 H Respiratory Rate 34 H 35 H 35 H Blood Pressure 132/85 143/91 H 131/93 H Pulse Oximetry 97 96 98 12/25/20 13:00 12/25/20 13:30 12/25/20 14:00 Temperature Pulse Rate 113 H 113 H 110 H Respiratory Rate 33 H 33 H 33 H Blood Pressure 146/92 H 144/99 H 151/90 H Pulse Oximetry 97 97 97 12/25/20 14:17 12/25/20 14:18 12/25/20 14:30 Temperature Pulse Rate 119 H 120 H 112 H Respiratory Rate 33 H 34 H Blood Pressure 138/98 H 153/98 H Pulse Oximetry 96 97 97 12/25/20 14:31 12/25/20 15:00 Temperature Pulse Rate 112 H 113 H Respiratory Rate 38 H 37 H Blood Pressure 150/98 H 156/88 H Pulse Oximetry 96 98 Oxygen Delivery Method Room Air Narrative Exam Narrative: GEN: he is in mild respiratory distress HEENT: PERRL, moist mucous membranes NECK: no JVD, trachea midline CV: tachycardic, regular, no murmurs PULM: decreased breath sounds bilaterally, no wheezes, rhonchi, rales ABD: soft, nontender, nondistended, no organomegaly, normal bowel sounds EXT: warm and well perfused, no edema SKIN: no rashes noted NEURO: AAOx3, moving all extremities with no gross focal deficit PSYCH: pleasant, cooperative Objective Labs Result Diagrams: 12/25/20 10:20 12/25/20 10:20 Labs: Laboratory Results - last 24 hr 12/25/20 12/25/20 12/25/20 10:20 10:20 12:30 WBC 8.1 RBC 5.31 Hgb 14.1 Hct 43.0 MCV 81.0 MCH 26.6 MCHC 32.8 RDW 14.9 H Plt Count 154 Neut % (Auto) 74.2 Lymph % (Auto) 16.3 L [place] % (Auto) 7.9 Eos % (Auto) 0.9 L Baso % (Auto) 0.7 Neut # (Auto) 6000 Lymph # (Auto) 1300 [place] # (Auto) 600 Eos # (Auto) 100 Baso # (Auto) 100 Sodium 135 L Potassium 4.5 Chloride 104 Carbon Dioxide 23 BUN 19 Creatinine 1.42 H Estimated GFR 48.9 L BUN/Creatinine Ratio 13.4 Glucose 285 H Calcium 8.9 Total Bilirubin 0.7 AST 24 ALT 16 Alkaline Phosphatase 155 H Total Creatine Kinase 80 CK-MB (CK-2) TNP CK-MB (CK-2) Rel Index TNP Troponin I 0.031 NT-Pro-B Natriuret Pep Total Protein 7.5 Albumin 3.8 Globulin 3.7 Albumin/Globulin Ratio 1.0 Lipase 203 Urine Color Urine Appearance Urine pH Ur Specific Farner Urine Protein Urine Glucose (UA) Urine Ketones Urine Occult Blood Urine Nitrate Urine Bilirubin Urine Urobilinogen Ur Leukocyte Esterase Urine RBC Urine WBC Ur Squamous Epith Cells Amorphous Sediment Urine Bacteria Urine Mucus Ur Culture Indicated? SARS-CoV-2 (PCR) Negative 12/25/20 12/25/20 12/25/20 12:32 12:32 14:40 WBC RBC Hgb Hct MCV MCH MCHC RDW Plt Count Neut % (Auto) Lymph % (Auto) [place] % (Auto) Eos % (Auto) Baso % (Auto) Neut # (Auto) Lymph # (Auto) [place] # (Auto) Eos # (Auto) Baso # (Auto) Sodium Potassium Chloride Carbon Dioxide BUN Creatinine Estimated GFR BUN/Creatinine Ratio Glucose Calcium Total Bilirubin AST ALT Alkaline Phosphatase Total Creatine Kinase CK-MB (CK-2) CK-MB (CK-2) Rel Index Troponin I 0.028 NT-Pro-B Natriuret Pep 7910 H Total Protein Albumin Globulin Albumin/Globulin Ratio Lipase Urine Color Yellow Urine Appearance Clear Urine pH 6.0 Ur Specific Farner 1.025 Urine Protein 3+ H Urine Glucose (UA) 2+ H Urine Ketones Negative Urine Occult Blood 1+ H Urine Nitrate Negative Urine Bilirubin Negative Urine Urobilinogen 0.2 Ur Leukocyte Esterase Negative Urine RBC 0-1/hpf Urine WBC 0-1/hpf Ur Squamous Epith Cells 0-1 /hpf Amorphous Sediment 1+ Urine Bacteria None seen Urine Mucus 1+ H Ur Culture Indicated? Cult not indicated SARS-CoV-2 (PCR) Assessment & Plan Assessment & Plan narrative: Mr. Guerrero is a 75M with PMH CAD, DM, HTN, ?CHF who comes in with shortness of breath after running out of his medications. 1. Acute respiratory distress secondary to acute CHF exacerbation -has run out of of lasix -BNP elevated to over 7k -chest imaging shows no pulmonary edema, or pleural effusions -got IV lasix in ED -order ECHO for further cardiac eval -trend additional troponins to rule out ACS -trend I/Os carefully, and weight daily -fluid restriction and low salt diet 2. Tachycardia -sinus tachycardia on EKG -likely rebound in setting of stopping home medications -reorder home dose of carvedilol -ECHO ordered 3. Diabetes, Type 2, not on insulin -initial glucose in 280s -order sliding scale -check a1c -may need to be on insulin as outpatient 4. Hypertension -off home medications -restart carvedilol -hold lisinopril for now given elevated creatinine 5. Elevated creatinine -creatinine on admission of 1.4 -baseline is unknown, last was stable at 1.2 in 2017 -hold lisinopril for now and repeat in AM 6. Hyperlipidemia -continue home dose of atorvastatin at 40mg 7. CAD s/p cabg -continue aspirin and statin 8. Obesity -encourage diet and exercise as outpatient 9. Pleural thickening -noted on R major fissure -recommend follow up CT within 3 months IVF: none DVT ppx: lovenox sc Diet: cardiac Code: DNR, proxy is Angelina Draper [facility] - Admit I confirm the patient?s Advance Care Plan is present, Code status is documented, Surrogate decision maker is in patient?s record [If Yes, STOP here]: Yes
--- NOTE | 2020-12-25 16:06 | DI.ECHO.S_ITS ---
[place] +---------+ [facility] +---------+ : : [address] : : : : [id number] : : : : Phone: [phone]+ Echocardiogram Report + + :Name: PARISH JACKSON Study Date: 12/26/2020 Height: 67 in : :[facility] ReadingLocation: Weight: 220 lb : : Gender: Male BSA: 2.1 m2 : :: 1945 Age: 75 yrs BP: 156/88 mmHg: :Reason For Study: CONGESTIVE HEART FAILURE : :Ordering Physician: FRANKLYN, : :TRINA Performed By: Ruchi Hernandez : :Referring: TRINA ESTES : + + Interpretation Summary 1) Moderately enlarged left ventricle with severely reduced sysotlic function (EF 15-20%). 2) Mildly enlarged right ventricular size with mildly reduced function. 3) There is mild to moderate aortic regurgitation. 4) There is moderate to severe mitral regurgitation. 5) There is moderate tricuspid regurgitation. 6) The right ventricular systolic pressure is estimated to be at least 43 mmHg based on an estimated right atrial pressure of 8 mm Hg. 7) Compared to the Echo done 05/07/2017, LV is more enlarged but significant change in cardiac structure is noted. Procedure: A two-dimensional transthoracic echocardiogram with color flow and Doppler was performed. The study quality was technically adequate. Comparison is made with the echocardiogram of 05/07/2017. The heart rate ranged between 86-97 bpm during the study. Left Ventricle: The estimated left ventricular end diastolic volume is 174 ml. The left ventricle is moderately dilated. The ejection fraction is estimated to be 15-20%. Right Ventricle: The right ventricle is mildly dilated. Right ventricular systolic function is mildly reduced. Atria: The left atrium is moderately dilated. The right atrium is mildly dilated. Mitral Valve: The mitral valve leaflets appear mildly thickened, but open well. There is mild mitral annular calcification. There is moderate to severe mitral regurgitation. There are multiple regurgitant jets present. Aortic Valve: The aortic valve is mildly calcified. There is no aortic valve stenosis. There is mild to moderate aortic regurgitation. Tricuspid Valve: The tricuspid valve leaflets are thin and pliable. There is moderate tricuspid regurgitation. The right ventricular systolic pressure is estimated to be at least 43 mmHg based on an estimated right atrial pressure of 8 mm Hg. Pulmonic Valve: The pulmonic valve is not well visualized. Great Vessels: The aortic root is normal size. The ascending aorta is mildly enlarged. The IVC is dilated (diameter is greater than 2.1 cm) yet it collapses greater than 50% with a sniff. This suggests a right atrial pressure of 8 mm Hg. Pericardium/ Pleura There is no pericardial effusion. There is no pleural effusion. MMode/2D Measurements & Calculations LVIDd: 6.2 cm LVOT diam: 2.5 cm LVIDs: 5.7 cm Ao root diam: 3.3 cm FS: 7.2 % asc Aorta Diam: 3.7 cm EPSS: 2.4 cm Ao Arch Diam (Prox Trans): 3.3 cm IVSd: 0.88 cm LVPWd: 1.0 cm LV kwong. diameter/BSA (cm/m^2): 2.9 LV sys. diameter/BSA (cm/m^2): 2.7 LA A2 area: 25.4 cm2 RA long axis: 5.4 cm LA A4 area: 26.8 cm2 RA area: 21.2 cm2 LA length (vol): 6.7 cm RA vol: 70.5 ml LA vol: 86.6 ml RA : 33.5 ml/m2 LA vol index: 41.2 ml/m2 IVC diam: 2.1 cm RVD1 (basal): 4.1 cm TAPSE: 1.4 cm Doppler Measurements & Calculations Ao V2 max: 119.8 cm/sec LVOT Max Paul: 41.0 cm/sec Ao V2 mean: 84.4 cm/sec LV V1 max P.67 mmHg Ao max P.8 mmHg LV V1 VTI: 8.5 cm Ao mean P.3 mmHg EMMA(I,D): 2.2 cm2 Ao V2 VTI: 19.0 cm EMMA(V,D): 1.7 cm2 sev ratio: 0.45 EMMA indexed to BSA (cm^2/m^2): 1.0 MV E max paul: 100.5 cm/sec TR max paul: 297.2 cm/sec MV A max paul: 72.1 cm/sec TR max P.3 mmHg MV E/A: 1.4 PA pr(Accel): 44.7 mmHg Med Peak E' Paul: 4.2 cm/sec E/E' med: 23.9 Lat Peak E' Paul: 4.8 cm/sec E/E' lat: 21.0 E/e' average: 22.5 MV dec time: 0.14 sec MR ERO: 0.41 cm2 MR PISA: 4.6 cm2 SV(LVOT): 41.3 ml MR flow rate: 197.1 cm3/sec MR PISA radius: 0.86 cm Reading Physician:12:39 PM
[2020-12-25] MEDS: INSULIN LISPRO 100 UNIT/ML 3ML VIAL SUBCUT ×2 (16:55→20:29)
[2020-12-25] MEDS: carvediloL 3.125 MG TABLET PO ×2 (16:59→20:23)
[2020-12-25] MEDS: ACETAMINOPHEN 325 MG TABLET 650 MG PO (19:33)
[2020-12-25] MEDS: ATORVASTATIN 20 MG TABLET 40 MG PO (20:23)
[2020-12-25] MEDS: HEPARIN 5,000 UNIT/ML VIAL 5000 UNIT SUBCUT (20:25)
[2020-12-25] MEDS: FUROSEMIDE 40 MG/4 ML VIAL IV (20:27)
--- NOTE | 2020-12-25 21:06 | PC.NURSE ---
Admit/Evening Shift Note- Patient arrived to room via stretcher from ER at 1600. Patient able to walk on his own with steady gait from stretcher in hallway to bed. Patient alert and oriented and able to make needs known to staff. Admit questions done, medications reviewed, physical assessment done, and skin check completed. Oriented patient to bed and bed controls, room, lights, phone, menu, bathroom, and call ge/TV remote. Safety measures in place. Patient agrees to call for assistance. Bed alarm activated. CAll ge and phone within reach. Will continue to monitor.
[2020-12-26] VITALS (9 sets, daily range): BP systolic 108–139; BP diastolic 51–90; PULSE 88–101; RESP 17–18; TEMP 36.1–36.9; O2SAT 94–96
[2020-12-26 05:04] LABS: Add Manual Diff / Slide Review NO; Basophils Absolute Auto 100 /uL (0-100); Basophils Percent Auto 1.2 % (0-2); Eosinophils Absolute Auto 100 /uL (0-450); Eosinophils Percent Auto 1.8 % (2-4); Hematocrit 43.6 % (41-53); Hemoglobin 14.2 g/dL (13.5-17.5); Lymphocytes Absolute Auto 1400 /uL (1100-4500); Lymphocytes Percent Auto 20.9 % (25-40); Mean Corpuscular HGB Conc 32.6 % (30-36); Mean Corpuscular Hemoglobin 26.3 PG (26-34); Mean Corpuscular Volume 80.8 fL (80-100); Monocytes Absolute Auto 600 /uL (0-900); Monocytes Percent Auto 9.2 % (3-14); Neutrophils Absolute Auto 4300 /uL (1500-7000); Neutrophils Percent Auto 66.9 % (50-75); Platelet Count 161 X10^3/uL (150-400); Red Blood Cell Count 5.39 X10^6/uL (4.5-5.9); Red Cell Distribution Width 14.8 % (11.6-14.8); White Blood Cell Count 6.5 X10^3/uL (4.5-11.0)
[2020-12-26 05:15] LABS: Hemoglobin A1C% w Est Avg Glu 11.9 % (4.0-6.0)
[2020-12-26 05:21] LABS: Blood Urea Nitrogen 25 mg/dL (9-20); Calcium 9.1 mg/dL (8.4-10.2); Carbon Dioxide 30 mmol/L (22-32); Chloride 100 mmol/L (98-107); Estimated Glomerular Filt Rate 37.4 mL/min (>60); Glucose 245 mg/dL (80-110); HEMOLYSIS < 15 (0-50); Magnesium 2.1 mg/dL (1.6-2.3); Phosphorous 4.2 mg/dL (2.3-3.7); Potassium 4.5 mmol/L (3.4-5.1); Sodium 136 mmol/L (137-145)
--- NOTE | 2020-12-26 06:57 | PC.NURSE ---
ICU notified this RN at 0330 of 6 beat V-Tach, patient asleep, asymptomatic. Provider notified, no orders received.
--- NOTE | 2020-12-26 07:24 | DI.US.S_ITS ---
PROCEDURE: US RENAL COMPLETE INDICATIONS: KRISTEL TECHNIQUE: Real-time scanning was performed of the kidneys and bladder, with image documentation. COMPARISON: [facility], CT, CT CHEST WO CON, 01/04/2018, 11:13. [facility], CT, CT ANGIO CHEST PE PROTOCOL, 12/25/2020, 14:53. FINDINGS: Kidneys: Kidneys are normal in size. Right kidney measures 11.3 cm long; left kidney measures 11 cm long. Right renal cortical thickness is 1.5 cm; left renal cortical thickness is 1.6 cm. Renal cortical echotexture is normal. No hydronephrosis. Right kidney echogenic focus measuring 1 cm. Several echogenic foci is a in the left kidney. No posterior acoustic shadowing appreciated. No suspicious solid mass lesions. Bladder: Pre-void bladder volume is 105 mL. Patient did not void. No intraluminal masses or stones seen. Ureteral jets not seen. Miscellaneous: No free pelvic fluid. IMPRESSION: No hydronephrosis demonstrated. Suspect small nonobstructing kidney stones bilaterally. -Consider CT KUB for further evaluation. Bladder volume 105 cc. Patient did not feel need to void. Dictated by: Skyler Painting M.D. on 12/26/2020 at 11:34 Approved by: Skyler Painting M.D. on 12/26/2020 at 11:38
[2020-12-26 07:32] LABS: Troponin I 0.041 ng/mL (0.01-0.034)
[2020-12-26 09:00] LABS: Creatinine Urine Random 85.3 mg/dL; Sodium Urine Random 123 mmol/L (30-90)
[2020-12-26] MEDS: carvediloL 3.125 MG TABLET PO ×2 (09:00→20:41)
[2020-12-26] MEDS: INSULIN LISPRO 100 UNIT/ML 3ML VIAL SUBCUT ×4 (09:00→20:42)
[2020-12-26] MEDS: ASPIRIN EC 81 MG TABLET PO (09:00)
[2020-12-26] MEDS: SODIUM CHLORIDE 0.9% FLUSH 10 ML IV ×2 (09:01→20:51)
[2020-12-26] MEDS: HEPARIN 5,000 UNIT/ML VIAL 5000 UNIT SUBCUT ×2 (09:01→20:41)
--- NOTE | 2020-12-26 10:53 | CM.DANOTE ---
Patient is a 75 year old male who was admitted on 12/25/20 for SOB/Chest Pain. Pt has [facility] and ON LICENSE OF [facility] and his PCP is Zeina Cano. EMR was reviewed. Per MD, pt with hx of CHF/CABG and admitted for respiratory distress due to CHF exacerbation. Per RN, pt has ambulated in room with steady gait and alert and oriented. SW met bedside with pt and explained role and he confirms that he still lives in [facility] with his in a mobile home with many other family members locally. Pt denies completing DPOA pwk and informally is his spouse Angelina. Pt is retired and states he is independent with ADL's and denies DME but does have a hx of HH a few years ago after being admitted in 2017 for pneumonia/CHF. Pt states he realizes he really needs to change his food and diet and is appreciative that MD placed a Cutting Machine Operator Helper Consult order. Cutting Machine Operator Helper to meet with pt bedside today. Pt preference is home if medically stable and does not anticipate any needs and states his spouse Angelina works until about 1500 but if needed his adult Dtr could provide transport home for him. Per MD and RN, awaiting Echo and labs due to pt's poor kidney function but if results are normal than pt likely stable for d/c later today. Plan: SW to follow for final labs and test results towards confirming safe plan of d/c home with family assist and any further identified needs. JENNIFER Lay Discharge Planning/Care Management CM Discharge Assessment Start: 12/26/20 10:51 Freq: Status: Active Protocol: Document 12/26/20 10:51 BF (Rec: 12/26/20 10:53 BF [id number]) Discharge Planning Assessment Assigned Chicken Picker JENNIFER Rao DPOA/Assigned Designee Name none, informally spouse Angelina Contact Information [phone] Advance Directives? No Advance Directives on File No History Provided By Patient,Medical Record Has Patient been admitted in last 30 No days? Prior Living Arrangements Mobile home Household Members spouse Type of transporation used prior to Relies on Others admit Independent with ADL's Yes Is patient alert and oriented? Yes Needs Assistance With Managing Medications,Home Chores / Shopping Caregiver for Another No Barriers to Discharge No Discharge Plan Home Transportation Arrangement Spouse works until around 1500 but adult Dtr could be available to transport before if pt discharged Referrals Initiated Cutting Machine Operator Helper Additional Comment Leticia Cutting Machine Operator Helper will meet bedside with pt today Whiteboard Updated in Patient Room with Yes name and ext. # of Chicken Picker Review Status In Process Please Provide Date Initial DC 12/26/20 Assessment Was Performed Next Review Type Continued Stay Review
--- NOTE | 2020-12-26 14:19 | PC.NURSE ---
pt with no complaints- reports breathing much improved from date of admission- room air spo2 mid 90's lungs dim but clear no edema noted- renal ultrasound completed due to increased creat and decreased gfr- no obstruction or hydronephrosis noted- echo completed and ef 15-20% - saline locked and taking diet well- cbg 219/288 this shift and covered per md orders- pt ambulated in hallways with geophysical laboratory chief and upon return bacame a bit dyspneic but maintained saturations and recovered within 1-2 minutes- he reports this as normal for him
[2020-12-26 14:53] LABS: BUN Creatinine Ratio 17.4 (6-22); Blood Urea Nitrogen 30 mg/dL (9-20); Calcium 8.9 mg/dL (8.4-10.2); Carbon Dioxide 28 mmol/L (22-32); Chloride 96 mmol/L (98-107); Estimated Glomerular Filt Rate 39.2 mL/min (>60); Glucose 244 mg/dL (80-110); HEMOLYSIS < 15 (0-50); Potassium 4.7 mmol/L (3.4-5.1); Sodium 131 mmol/L (137-145)
[2020-12-26 15:04] LABS: Troponin I 0.019 ng/mL (0.01-0.034)
--- NOTE | 2020-12-26 15:47 | PM.PN.1 ---
Subjective Subjective Date Patient Seen: 12/26/20 Time Patient Seen: 08:47 Interval history: Today he feels his breathing is improved with less shortness of breath, but not completely resolved. Exam Vital Signs (past 8 hours): - 12/26/20 08:20 12/26/20 09:00 12/26/20 12:00 Temperature 97.0 F L 97.0 F L Pulse Rate 96 H 96 H 96 H Respiratory Rate 18 18 Blood Pressure 133/90 119/74 Pulse Oximetry 96 96 Oxygen Delivery Method Room Air Oxygen Flow Rate 0 Narrative Exam Narrative: GEN: no acute distress HEENT: PERRL, moist mucous membranes NECK: no JVD, trachea midline CV: tachycardic, regular, no murmurs PULM: decreased breath sounds bilaterally, no wheezes, rhonchi, rales ABD: soft, nontender, nondistended, no organomegaly, normal bowel sounds EXT: warm and well perfused, no edema SKIN: no rashes noted NEURO: AAOx3, moving all extremities with no gross focal deficit PSYCH: pleasant, cooperative Objective Labs Result Diagrams: 12/26/20 04:52 12/26/20 14:35 Labs: Laboratory Results - last 24 hr 12/25/20 12/26/20 12/26/20 14:40 04:52 04:52 WBC 6.5 RBC 5.39 Hgb 14.2 Hct 43.6 MCV 80.8 MCH 26.3 MCHC 32.6 RDW 14.8 Plt Count 161 Neut % (Auto) 66.9 Lymph % (Auto) 20.[address] [place] % (Auto) 9.2 Eos % (Auto) 1.8 L Baso % (Auto) 1.2 Neut # (Auto) 4300 Lymph # (Auto) 1400 [place] # (Auto) 600 Eos # (Auto) 100 Baso # (Auto) 100 Sodium 136 L Potassium 4.5 Chloride 100 Carbon Dioxide 30 BUN 25 H Creatinine 1.79 H Estimated GFR 37.4 L BUN/Creatinine Ratio 14.0 Glucose 245 H Hemoglobin A1c Calcium 9.1 Phosphorus 4.2 H Magnesium 2.1 Troponin I Ur Random Sodium 123 H Urine Creatinine 85.3 12/26/20 12/26/20 12/26/20 04:52 04:52 14:35 WBC RBC Hgb Hct MCV MCH MCHC RDW Plt Count Neut % (Auto) Lymph % (Auto) [place] % (Auto) Eos % (Auto) Baso % (Auto) Neut # (Auto) Lymph # (Auto) [place] # (Auto) Eos # (Auto) Baso # (Auto) Sodium 131 L Potassium 4.7 Chloride 96 L Carbon Dioxide 28 BUN 30 H Creatinine 1.72 H Estimated GFR 39.2 L BUN/Creatinine Ratio 17.4 Glucose 244 H Hemoglobin A1c 11.9 H Calcium 8.9 Phosphorus Magnesium Troponin I 0.041 H Ur Random Sodium Urine Creatinine 12/26/20 14:35 WBC RBC Hgb Hct MCV MCH MCHC RDW Plt Count Neut % (Auto) Lymph % (Auto) [place] % (Auto) Eos % (Auto) Baso % (Auto) Neut # (Auto) Lymph # (Auto) [place] # (Auto) Eos # (Auto) Baso # (Auto) Sodium Potassium Chloride Carbon Dioxide BUN Creatinine Estimated GFR BUN/Creatinine Ratio Glucose Hemoglobin A1c Calcium Phosphorus Magnesium Troponin I 0.019 Ur Random Sodium Urine Creatinine PFSH Surgical History S/P CABG x 4 Social History (Updated 12/25/20 @ 12:21 by Sarah Mays DO) household members: spouse Smoking Status: Never smoker Assessment & Plan Assessment & Plan narrative: Mr. Guerrero is a 75M with PMH CAD, DM, HTN, ?CHF who comes in with shortness of breath after running out of his medications. 1. Acute respiratory distress secondary to acute on chronic systolic CHF exacerbation -has run out of of lasix at home -BNP elevated to over 7k -chest imaging shows no pulmonary edema, or pleural effusions -got IV lasix in ED -worsened KRISTEL on 12/26 so held lasix -order ECHO for further cardiac eval which showed EF 15-20%, MR, TR, and AR -troponins peaked at 0.04 and now downtrended -trend I/Os carefully, and weight daily -fluid restriction and low salt diet -holding lisinopril due to KRISTEL 2. Tachycardia -sinus tachycardia on EKG -likely rebound in setting of stopping home medications -reorder home dose of carvedilol and improved heart rate -ECHO ordered and notable as above 3. Diabetes, Type 2, not on insulin -initial glucose in 280s -order sliding scale -check a1c which is greater than 11 -start lantus here in the hospital -hold oral diabetes medications due to KRISTEL 4. Hypertension -off home medications -restart carvedilol -hold lisinopril for now given elevated creatinine 5. KRISTEL on CKD stage 3 -creatinine on admission of 1.4 -baseline is unknown, last was stable at 1.2 in 2017 -increased to 1.79 on 12/26 possibly due to diuresis 6. Hyperlipidemia -continue home dose of atorvastatin at 40mg 7. CAD s/p cabg -continue aspirin and statin 8. Obesity -encourage diet and exercise as outpatient 9. Pleural thickening -noted on R major fissure -recommend follow up CT within 3 months IVF: none DVT ppx: lovenox sc Diet: cardiac Code: DNR, proxy is Angelina
--- NOTE | 2020-12-26 16:45 | DIET.PN ---
Dietary Progress Note Assessment: 75y REJI Henriquez admitted for sob/chest px referred to nutrition for heart healthy diet instruction and poorly controlled DM2. Pt lives c nephew in [facility], is from spouse but retains good relationship when we go there for dinner I eat everything. Pt usually shops for the house and will buy healthier options despite trejo, but nephew is value performance specialist. Pt states he is watching his starch intake and only eats small portions of rice/potatoes. Pt does not eat boxed rice or potato products. Pt eats smoked salmon regularly and is an important food in his culture. Usual Day: B: /2 c coffee c pastry L: [facility] [employer] meal D: grilled pork chop, steak, ribs, hamburger made by nephew drinks Sprite or 7up every other day Pt has had DM education c an RD in the past who went into his home to show him the good food and the food to stop buying. Pt feels his weakness is his morning pastry. Pt doesn't know how his nephew seasons meats for dinner. HT: 170.1cm WT: 93.3kg BMI: 32.2 Labs: A1c 11.9 H, BNP 7910 H Nutrition Diagnosis: altered nutrition related laboratory values r/t undesirable food choices aeb pt drinking full sugar soda, pt unsure of seasoning added to meat products daily, pt admitted c poorly controlled DM (A1c 11.9) and CHF exacerbation. Interventions: 1. Discussed A1c and using diagram explained how food choices increases BG and A1c. Helped pt set goal of getting A1c down to 8 in next 3mo through removing full soda sugar from diet and swapping his morning pastry for thin slice ww toast c salt and sugar free PB (which he enjoys) and taking medication as directed by . 2. Collaborated c pt on additional ways to reduce dietary sodium. Encouraged pt to have conversation c his nephew to not use salt in any form while marinating meats for grilling. Garlic and onion powder are fine to use but not garlic salt, onion salt, seasoning salt... Pt very receptive to teaching. Diet Order: CCD sodium and fluid restriction EER:45g CHO at meals, 2g Na daily max
[2020-12-26] MEDS: ATORVASTATIN 20 MG TABLET 40 MG PO (20:41)
[2020-12-26] MEDS: INSULIN GLARGINE 100 UNIT/ML 3ML PEN 10 UNIT SUBCUT (20:42)
[2020-12-27] MEDS: SODIUM CHLORIDE 0.9% FLUSH 10 ML IV ×2 (01:00→08:37)
[2020-12-27 01:20] VITALS: BP 127/76; PULSE 60; RESP 20; TEMP 36.9; O2SAT 93
[2020-12-27 05:51] LABS: Hemoglobin 14.5 g/dL (13.5-17.5); Mean Corpuscular HGB Conc 32.9 % (30-36); Mean Corpuscular Hemoglobin 26.4 PG (26-34); Mean Corpuscular Volume 80.2 fL (80-100); Platelet Count 159 X10^3/uL (150-400); Red Blood Cell Count 5.49 X10^6/uL (4.5-5.9); Red Cell Distribution Width 14.6 % (11.6-14.8); White Blood Cell Count 7.5 X10^3/uL (4.5-11.0)
[2020-12-27 05:54] LABS: HEMOLYSIS < 15 (0-50); Potassium 4.9 mmol/L (3.4-5.1)
[2020-12-27 05:55] LABS: BUN Creatinine Ratio 16.7 (6-22); Blood Urea Nitrogen 29 mg/dL (9-20); Calcium 8.9 mg/dL (8.4-10.2); Carbon Dioxide 29 mmol/L (22-32); Chloride 98 mmol/L (98-107); Estimated Glomerular Filt Rate 38.7 mL/min (>60); Glucose 228 mg/dL (80-110); Sodium 132 mmol/L (137-145)
[2020-12-27 08:02] VITALS: BP 132/84; PULSE 94; RESP 16; TEMP 36.4; O2SAT 93
[2020-12-27] MEDS: HEPARIN 5,000 UNIT/ML VIAL 5000 UNIT SUBCUT (08:35)
[2020-12-27] MEDS: ASPIRIN EC 81 MG TABLET PO (08:35)
[2020-12-27] MEDS: FUROSEMIDE 40 MG TABLET PO (08:35)
[2020-12-27] MEDS: carvediloL 3.125 MG TABLET PO (08:35)
[2020-12-27] MEDS: INSULIN LISPRO 100 UNIT/ML 3ML VIAL SUBCUT ×2 (08:36→12:20)
--- NOTE | 2020-12-27 10:36 | CM.DPNOTE ---
DC Note Reviewed chart, met briefly w/patient. DC order placed by Dr Mcnamara this morning. Patient plans to return home w/spouse No needs identified from this [employer] JW
[2020-12-27 11:32] VITALS: BP 110/72; PULSE 92; RESP 18; TEMP 36.1; O2SAT 95
--- NOTE | 2020-12-27 13:10 | P.DS_ITS ---
History of Present Illness History of Present Illness Chief complaint: sob/chest pain Narrative: Mr. Guerrero is a 75M with PMH of CAD s/p CABG in 2011, DM, HTN, HL, ?CHF who comes in with shortness of breath. He states he had been in his normal state of health but ran out of his medications four days ago. He started developing some left sided pain in his chest. He has been developing progressively worsening shortness of breath. He is currently not having any chest pressure. He did not have any lightheadedness, no fevers/chills. He has a mild cough that is nonproductive. He has no abdominal pain, nausea, vomiting. He has noticed no swelling in his extremities. He is usually fairly active, does things like splitting wood, but has been short of breath even at rest. In the ED, he was noted to be tachycardic with heart rate of 110s, in sinus. Respiratory rate in 30s, normal o2 sats. Normal blood pressure. Labs showed WBC 8.1, hgb 14.1, na 135, bun 19, creatinine 1.42, last baseline may be 1.2 but was back in May 2017. Blood sugar 285. Trop 0.031, then 0.028. BNP 7910. Cxray showed no acute process. CTA chest showed pleural thickening on the right. COVID negative. UA negative for infection. He was given lasix and admitted for further treatment. Denies family history of CHF Discharge Providers Provider Date of admission: 12/25/20 15:25 Discharge Date: 12/27/20 Primary care physician: Zeina Cano MD Consults: 12/26/20 09:23 Consult to Dietitian, Adult Routine Comment: Reason For Exam: diabetes, poorly controlled Discharge provider: Juan Mcnamara MD Summary Hospital Course Discharge Diagnosis: 1. Acute respiratory distress secondary to acute chronic systolic CHF exacerbation 2. Tachycardia 3. Type 2 Diabetes, started on insulin 4. Hypertension 5. CKD stage 3, mild KRISTEL 6. Hyperlipidemia 7. CAD s/p CABG 8. Obesity 9. Pleural thickening, right major fissure Hospital Course: Mr. Guerrero came in with acute respiratory distress, was initially tachypneic, tachycardic and short of breath. He was found to have acute systolic CHF exacerbation. ECHO showed an EF of 15-20% with mitral regurgitation, tricuspid regurgitation, and aortic regurgitation. This was consistent with prior ECHOs. He had BNP of 7k. He had run out of his medicine a few days ago, though the pharmacy said he had not picked up medications since September. He also has not seen a PCP recently, and does not have a rotary rock drilling machine operator. He was diuresed with improvement of his symptoms. His initial creatinine was 1.4, after diursesis remained stable at 1.7. He had no further shortness of breath. His admit weight was documented as 99.8kg and discharge weight 93.4kg. He diuresed over 2L negative. He was also noted to have an A1c greater than 11, he was started on 20U of long acting insulin. He saw the floor plan adjuster about CHF and DM diets. He was noted to have right pleural thickening in his lung along the major fissure. He is recommended to have follow up CT in 3 months as etiology is not clear. He was encouraged to establish close follow up with his PCP and he was referred to a rotary rock drilling machine operator. He was not started on lisinopril due to his kidney function, and his metformin was discontinued due to this same reason. Exam Vital Signs (past 8 hours): - 12/27/20 08:02 12/27/20 11:32 Temperature 97.6 F 96.9 F L Pulse Rate 94 H 92 H Respiratory Rate 16 18 Blood Pressure 132/84 110/72 Pulse Oximetry 93 95 Oxygen Delivery Method Room Air Oxygen Flow Rate 0 Narrative Exam Narrative: GEN: no acute distress HEENT: PERRL, moist mucous membranes NECK: no JVD, trachea midline CV: regular, no murmurs PULM: clear bilaterally, no wheezes, rhonchi, rales ABD: soft, nontender, nondistended, no organomegaly, normal bowel sounds EXT: warm and well perfused, no edema SKIN: no rashes noted NEURO: AAOx3, moving all extremities with no gross focal deficit PSYCH: pleasant, cooperative Objective Labs Result Diagrams: 12/27/20 05:00 12/27/20 05:00 Labs: Laboratory Results - last 24 hr 12/26/20 12/26/20 12/27/20 14:35 14:35 05:00 WBC 7.5 RBC 5.49 Hgb 14.5 Hct 44.0 MCV 80.2 MCH 26.4 MCHC 32.9 RDW 14.6 Plt Count 159 Sodium 131 L Potassium 4.7 Chloride 96 L Carbon Dioxide 28 BUN 30 H Creatinine 1.72 H Estimated GFR 39.2 L BUN/Creatinine Ratio 17.4 Glucose 244 H Calcium 8.9 Troponin I 0.019 12/27/20 05:00 WBC RBC Hgb Hct MCV MCH MCHC RDW Plt Count Sodium 132 L Potassium 4.9 Chloride 98 Carbon Dioxide 29 BUN 29 H Creatinine 1.74 H Estimated GFR 38.7 L BUN/Creatinine Ratio 16.7 Glucose 228 H Calcium 8.9 Troponin I PFSH Surgical History S/P CABG x 4 Social History (Updated 12/25/20 @ 12:21 by Sarah Mays DO) household members: spouse Smoking Status: Never smoker Discharge Plan Discharge Plan Patient Disposition: Home Provider Discharge Comment: Mr Guerrero came in with shortness of breath from a congestive heart failure exacerbation. He received lasix which helped him urinate well and his breathing improved. His ultrasound of his heart showed he has a very weak heart with ejection fraction of 10-15% which he has had before. He also had diabetes that was out of control, he was recommended to start back on insulin. He had run out of his medications which probably caused these problems. He also has some weakened kidney function. For all these issues he should follow very closely with his primary doctor and a rotary rock drilling machine operator. He should be considered to go back on a medication called lisinopril if his kidney function remains stable, but this was not started for now because of his kidneys. He is also recommended to be off of metformin right now due to his kidneys. Discharge orders & Medications Prescriptions: New carvedilol [Coreg] 3.125 mg Tablet 6.25 mg PO BID Qty: 60 RF: 0 insulin detemir U-100 100 unit/mL (3 mL) insulin pen 20 unit SUBCUT BEDTIME Qty: 6 RF: 0 furosemide 40 mg Tablet 40 mg PO BID Qty: 60 RF: 0 Continued aspirin 81 MG tablet,chewable 81 mg PO BID Qty: 0 RF: 0 atorvastatin 40 mg 40 mg DAILY RF: 0 Discontinued carvedilol [Coreg] 6.25 MG tablet 6.25 mg PO DAILY Qty: 0 RF: 0 potassium chloride [Klor-Con M20] 20 MEQ tablet,ER particles/crystals 20 meq PO AMCC Qty: 30 RF: 9 lisinopril 5 MG tablet 5 mg PO QDAY Qty: 30 RF: 9 metformin 40 mg 40 mg DAILY RF: 0 furosemide 80 MG tablet 80 mg OR DAILY RF: 0 Follow up/Referrals: Zeina Cano MD [Primary Care Provider] - Eron Cr MD [Physician] - (systolic congestive heart failure, EF 10- 15%, CKD) Diet/Activity/Treatments Diet: Carb-consistent/Diabetic, Low-sodium and Low-cholesterol Diet comment: 2 liter fluid restriction each day Visit Report/Discharge Packet Instructions: DI for Heart Failure, DI for Diabetes Type 2, Insulin Detemir (rDNA Origin) Injection Discharge Data Primary Care Provider: Zeina Cano Attending Provider: Juan Mcnamara [facility] The patient has current or prior documentation of left ventricular ejection fraction (LVEF) less than 40%, or moderate or severely depressed left ventri cular systolic function.: Yes A. The patient was prescribed or already taking an Angiotensin-Converting Enzyme (CHARLY) Inhibitor, or Angiotensin Receptor Lizzette (ARB).: No B. The patient was prescribed or already taking a beta-lizzette. [If Yes to Both A & B, STOP here]: Yes Patient not prescribed/taking CHARLY or ARB for medical/patient/system reason(s) including (ex: allergy, intolerance, contraindication).: Contraindicated due to KRISTEL
--- NOTE | 2020-12-27 14:33 | PC.NURSE ---
Patient discharged to home with his . IV dc'd intact, ambulating without difficulty. Denies shortness of breath. Discharge instructions and home care handouts reviewed with patient and his . Prescriptions given to patient to fill at pharmacy of his choice. Patient has no further questions or concerns at this time. Escorted out via wheelchair with all his belongings.
== END 2020-12-27 14:39 | disposition home or self-care (01) ==
LOC: ED 11:56 → AC 15:26
PROVIDERS: Admitting Provider Internal Medicine; Emergency Provider Emergency Medicine; PCP Family Medicine; Referring Provider Emergency Medicine; Visit Provider Internal Medicine
DX: I11.0 Hypertensive heart disease with heart failure (principal); I50.23 Acute on chronic systolic (congestive) heart failure; R06.03 Acute respiratory distress; R07.9 Chest pain, unspecified; R06.02 Shortness of breath; Z95.1 Presence of aortocoronary bypass graft; E78.5 Hyperlipidemia, unspecified; I25.10 Atherosclerotic heart disease of native coronary artery without angina pectoris; Z79.84 Long term (current) use of oral hypoglycemic drugs; E66.9 Obesity, unspecified; I13.0 Hypertensive heart and chronic kidney disease with heart failure and stage 1 through stage 4 chronic kidney disease, or unspecified chronic kidney disease; E11.22 Type 2 diabetes mellitus with diabetic chronic kidney disease; N18.30 Chronic kidney disease, stage 3 unspecified; N17.9 Acute kidney failure, unspecified; Z68.34 Body mass index [BMI] 34.0-34.9, adult; Z20.822 Contact with and (suspected) exposure to COVID-19
CPT/HCPCS: 36415; 71045; 71275; 76770; 80048; 80053; 81001; 82550; 82570; 82962; 83036; 83690; 83735; 83880; 84100; 84300; 84484; 85025; 85027; 87635; 93005; 93010; 93306; 96372; 96374; 96376; 99285; C9803; G0378; J1644; J1815; J1940; Q9967

== ENCOUNTER → 2021-02-13 11:25 | Outpatient (ROUT) | payer MEDICARE, OTHER, SELFPAY ==
[2020-12-25 16:34] VITALS: BMI 32.2
[2021-02-13 11:44] LABS: BUN Creatinine Ratio 15.1 (6-22); Blood Urea Nitrogen 27 mg/dL (9-20); Calcium 8.4 mg/dL (8.4-10.2); Carbon Dioxide 26 mmol/L (22-32); Chloride 98 mmol/L (98-107); Estimated Glomerular Filt Rate 37.4 mL/min (>60); Glucose 359 mg/dL (80-110); HEMOLYSIS < 15 (0-50); Potassium 4.4 mmol/L (3.4-5.1); Sodium 131 mmol/L (137-145)
== END ==
PROVIDERS: PCP Family Medicine; Visit Provider Family Medicine
DX: E87.5 Hyperkalemia (principal)
CPT/HCPCS: 80048

== ENCOUNTER 2021-07-06 10:08 | Emergency (ER) | payer MEDICARE, OTHER, SELFPAY ==
[2020-12-25 16:34] VITALS: BMI 32.2
[2021-07-06] VITALS (16 sets, daily range): BP systolic 120–140; BP diastolic 79–98; PULSE 105–115; RESP 22–40; TEMP 36.7; O2SAT 95–100; BMI 37.1
--- NOTE | 2021-07-06 10:13 | DI.RAD.S_ITS ---
PROCEDURE: XR CHEST 1V INDICATIONS: cough, SOB TECHNIQUE: One view of the chest was acquired. COMPARISON: [facility], CR, XR CHEST 1V, 12/25/2020, 10:25. FINDINGS: Surgical changes and devices: Status post median sternotomy. Lungs and pleura: There is right basilar atelectasis and a right perihilar infiltrate. No pleural effusions or pneumothorax. Mediastinum: Mediastinal contours appear normal. Heart size is normal. Bones and chest wall: No suspicious bony lesions. Overlying soft tissues appear unremarkable. IMPRESSION: Right perihilar infiltrate and right basilar infiltrate consistent with pneumonia. Dictated by: Rodri Rodrigues M.D. on 07/06/2021 at 9:49 Approved by: Rodri Rodrigues M.D. on 07/06/2021 at 9:54
[2021-07-06 10:26] LABS: Add Manual Diff / Slide Review NO; Basophils Absolute Auto 100 /uL (0-100); Basophils Percent Auto 0.6 % (0-2); Eosinophils Absolute Auto 100 /uL (0-450); Eosinophils Percent Auto 0.7 % (2-4); Hematocrit 38.1 % (41-53); Hemoglobin 12.5 g/dL (13.5-17.5); Lymphocytes Absolute Auto 1200 /uL (1100-4500); Lymphocytes Percent Auto 14.5 % (25-40); Mean Corpuscular HGB Conc 32.7 % (30-36); Mean Corpuscular Hemoglobin 26.3 PG (26-34); Mean Corpuscular Volume 80.3 fL (80-100); Monocytes Absolute Auto 300 /uL (0-900); Monocytes Percent Auto 4.2 % (3-14); Neutrophils Absolute Auto 6600 /uL (1500-7000); Platelet Count 306 X10^3/uL (150-400); Red Blood Cell Count 4.75 X10^6/uL (4.5-5.9); Red Cell Distribution Width 14.7 % (11.6-14.8); White Blood Cell Count 8.3 X10^3/uL (4.5-11.0)
[2021-07-06 10:40] LABS: INR 1.1 (0.9-1.3); Prothrombin Time 12.1 SECONDS (10.1-12.7)
[2021-07-06 10:43] LABS: Creatine Kinase 69 U/L (55-170); Magnesium 2.1 mg/dL (1.6-2.3); PTT Partial Thromboplastin Tim 33 SECONDS (26.4-36.2)
[2021-07-06 10:47] LABS: Alanine Aminotransferase 21 IU/L (<50); Albumin 3.7 g/dL (3.5-5.0); Alkaline Phosphatase 186 U/L (38-126); Aspartate Aminotransferase 39 IU/L (17-59); BUN Creatinine Ratio 14.8 (6-22); Bilirubin Total 0.6 mg/dL (0.2-1.3); Blood Urea Nitrogen 18 mg/dL (9-20); Calcium 8.5 mg/dL (8.4-10.2); Carbon Dioxide 25 mmol/L (22-32); Chloride 106 mmol/L (98-107); Estimated Glomerular Filt Rate 58.2 mL/min (>60); Globulin 3.6 g/dL (1.7-4.1); Glucose 358 mg/dL (80-110); HEMOLYSIS < 15 (0-50); Sodium 137 mmol/L (137-145); Total Protein 7.3 g/dL (6.3-8.2)
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
[2021-07-06 10:50] LABS: D Dimer 1930 ng/mL (<230)
--- NOTE | 2021-07-06 10:53 | DI.CT.S_ITS ---
PROCEDURE: CT ANGIO CHEST PE PROTOCOL INDICATIONS: SOB, hypoxemia, tachycardia, critical DDimer TECHNIQUE: After the administration of intravenous contrast, 2 mm thick sections acquired from the pulmonary apices to the posterior costophrenic angles. 3-dimensional maximum intensity projection (MIP) coronal and sagittal reformats were then acquired through the thorax. For radiation dose reduction, the following was used: automated exposure control, adjustment of mA and/or kV according to patient size. COMPARISON: [facility], CR, XR CHEST 1V, 07/06/2021, 10:29. [facility], CT, CT ANGIO CHEST PE PROTOCOL, 12/25/2020, 14:53. FINDINGS: Image quality: Excellent. Pulmonary arteries: Pulmonary arteries are normal in size, and demonstrate no intraluminal filling defects to suggest central pulmonary embolism. Lungs and pleura: Lungs are clear. There is right basilar atelectasis and a trace right pleural effusion. Septal thickening is noted dependently, likely mild pulmonary edema No pleural effusions or pneumothorax. Central and peripheral airways are patent. Mediastinum: Heart size is normal, without pericardial effusion. The coronary arteries have atherosclerotic calcifications. Mediastinal lymph nodes are prominent but are unchanged compared to the prior CT and are not pathologically enlarged. Thoracic aorta is normal in caliber and enhancement. Esophagus is normal in caliber, without hiatal hernia. Bones and chest wall: No suspicious bony lesions. Ribs and thoracic spine appear intact throughout. Thyroid gland is normal. No axillary or supraclavicular adenopathy. Abdomen: Visualized upper abdominal solid organs appear normal in the early arterial phase of enhancement. IMPRESSION: 1. No pulmonary embolism. 2. Right basilar atelectasis and trace right pleural effusion. 3. Dependent septal thickening, likely mild pulmonary edema Dictated by: Rodri Rodrigues M.D. on 07/06/2021 at 11:04 Approved by: Rodri Rodrigues M.D. on 07/06/2021 at 11:21
[2021-07-06 10:56] LABS: NT-proBNP (BNP-Adult 18+) 16300 pg/mL (<125); Troponin I 0.035 ng/mL (0.01-0.034)
[2021-07-06 11:01] LABS: Procalcitonin 0.07 ng/mL (<0.5)
[2021-07-06 12:45] LABS: Amorphous Sediment Urine 2+; Bacteria Urine Moderate (10-30); Culture Indicated Urine Specimen Cultured; RBC Urine 5-10/HPF (0-5/HPF); Squamous Epithelial Cell Urine 1-5 /HPF (0-5/HPF); WBC Urine 1-5/HPF (0-5/HPF)
--- NOTE | 2021-07-06 14:20 | PC.NURSE ---
walked pt around unit with pulsox, he stayed between 96-99% without O2
[2021-07-06] MEDS: methylPREDNISolone 125 MG/2 ML VIAL IV (14:53)
[2021-07-06] MEDS: ALBUTEROL/IPRATROPIUM 3 ML AMPUL INH (14:54)
[2021-07-06] MEDS: FUROSEMIDE 40 MG/4 ML VIAL IV (15:16)
[2021-07-06 15:20] LABS: COVID19 -Nasal RAPID Negative (Negative)
== END 2021-07-06 16:27 | disposition home or self-care (01) ==
PROVIDERS: Emergency Provider Emergency Medicine; PCP Family Medicine
DX: I50.9 Heart failure, unspecified (principal); Z20.822 Contact with and (suspected) exposure to COVID-19
CPT/HCPCS: 36415; 71045; 71275; 80053; 81003; 81015; 82550; 82962; 83735; 83880; 84145; 84484; 85025; 85379; 85610; 85730; 87086; 87147; 87635; 93005; 96374; 96375; 99285; C9803; J1940; J2930; Q9967

== ENCOUNTER 2021-07-23 16:18 | Inpatient (IN) | payer MEDICARE, OTHER, SELFPAY ==
[2020-12-25 16:34] VITALS: BMI 32.2
[2021-07-23] VITALS (7 sets, daily range): BP systolic 102–146; BP diastolic 71–80; PULSE 88–110; RESP 26–42; TEMP 36.6–37.1; O2SAT 82–100; BMI 33.3
--- NOTE | 2021-07-23 16:31 | DI.RAD.S_ITS ---
PROCEDURE: XR CHEST 1V INDICATIONS: CHF COVID + TECHNIQUE: One view of the chest was acquired. COMPARISON: [facility], CR, XR CHEST 1 VIEW, 07/22/2021, 17:29. [facility], CT, CT ANGIO CHEST PE PROTOCOL, 07/06/2021, 11:37. [facility], CR, XR CHEST 1V, 07/06/2021, 10:29. FINDINGS: Surgical changes and devices: Sternotomy wires and mediastinal clips are seen Lungs and pleura: Lungs are clear. No pleural effusions or pneumothorax. Mediastinum: Mediastinal contours appear normal. Heart size is moderately enlarged. Atherosclerotic calcification of the aortic arch is noted. Bones and chest wall: No suspicious bony lesions. Age-appropriate bony degenerative changes are seen. Overlying soft tissues appear unremarkable. IMPRESSION: Moderate cardiomegaly, without a focal pulmonary abnormality. Please consider short-term follow-up. Dictated by: Christiano Marsh M.D. on 07/23/2021 at 15:56 Approved by: Christiano Marsh M.D. on 07/23/2021 at 16:02
[2021-07-23 17:40] LABS: Add Manual Diff / Slide Review NO; Basophils Absolute Auto 100 /uL (0-100); Eosinophils Absolute Auto 100 /uL (0-450); Eosinophils Percent Auto 1.3 % (2-4); Hematocrit 38.2 % (41-53); Hemoglobin 12.3 g/dL (13.5-17.5); Lymphocytes Absolute Auto 1000 /uL (1100-4500); Lymphocytes Percent Auto 16.8 % (25-40); Mean Corpuscular HGB Conc 32.2 % (30-36); Mean Corpuscular Hemoglobin 25.9 PG (26-34); Mean Corpuscular Volume 80.4 fL (80-100); Monocytes Absolute Auto 400 /uL (0-900); Monocytes Percent Auto 7.2 % (3-14); Neutrophils Absolute Auto 4300 /uL (1500-7000); Neutrophils Percent Auto 73.7 % (50-75); Platelet Count 223 X10^3/uL (150-400); Red Blood Cell Count 4.75 X10^6/uL (4.5-5.9); Red Cell Distribution Width 16.2 % (11.6-14.8); White Blood Cell Count 5.8 X10^3/uL (4.5-11.0)
--- NOTE | 2021-07-23 17:46 | ED_ITS ---
HPI - SOB/Dyspnea <Jose Cummings MD - Last Filed: 07/29/21 13:21> General Chief Complaint: Shortness of Breath/Dyspnea Stated Complaint: difficulty breathing Time Seen by Provider: 07/23/21 17:34 History of Present Illness HPI Narrative: Patient complains of shortness breath for the past 3 days. History of CHF. Patient states has had swelling in the lower legs. Was admitted here 3 weeks ago at [place]. Denies any fever or chills. He states he took home COVID test and it was positive, he is vaccinated. He states his nephew has COVID. Denies any chest pain. Denies any lung disease. Is not on home oxygen. Related Data Home Medications Medication Instructions Recorded Confirmed insulin detemir U-100 100 unit/mL 40 unit SUBCUT BEDTIME 07/24/21 07/24/21 (3 mL) subcutaneous pen Previous Rx's Medication Instructions Recorded atorvastatin 40 mg tablet 40 mg PO BEDTIME #30 tab 12/27/20 furosemide 40 mg tablet 40 mg PO BID #60 tab 12/27/20 needle (disp) 30 gauge 30 gauge x #100 ea 12/27/20 1/2 carvedilol 3.125 mg tablet (Coreg) 3.125 mg PO Q12H #60 tab 07/25/21 lisinopril 2.5 mg tablet 2.5 mg PO DAILY #30 tab 07/25/21 spironolactone 25 mg tablet 12.5 mg PO DAILY #30 tab 07/25/21 Allergies Allergy/AdvReac Type Severity Reaction Status Date / Time No Known Drug Allergies Allergy Verified 12/25/20 10:24 Review of Systems <Jose Cummings MD - Last Filed: 07/29/21 13:21> Review of Systems Narrative: GENERAL: Denies chills, fatigue, malaise, fever, sweats. HEENT: Denies sinus pain, ear pain, sore throat RESPIRATORY: Positive dyspnea, negative cough CARDIOVASCULAR: Denies chest pain, palpitations GASTROINTESTINAL: Denies nausea, vomiting, abdominal pain : Denies dysuria, frequency, hematuria MUSCULOSKELETAL: denies muscle or bony pain SKIN: Denies rash, skin lesions NEUROLOGIC: Denies weakness, numbness ROS Unobtainable: All systems reviewed & are unremarkable except as noted in HPI and below Patient History <Jose Cummings MD - Last Filed: 07/29/21 13:21> Medical History (Updated 07/24/21 @ 01:29 by RAHEEM Kline) CKD stage 3 due to type 2 diabetes mellitus Coronary artery disease due to type 2 diabetes mellitus Essential hypertension Hyperlipidemia associated with type 2 diabetes mellitus Systolic congestive heart failure Surgical History (Updated 07/24/21 @ 01:31 by ELIEZER Kline) Hx of sternectomy S/P CABG x 4 Family History Mother Congestive heart failure Father Heart attack Social History household members: spouse Smoking Status: Never smoker Smoking Status: Never smoker alcohol intake frequency: holidays/special occasions only Substance Use Type: does not use Exam <Jose Cummings MD - Last Filed: 07/29/21 13:21> Narrative Exam Narrative: GENERAL: in no distress, not toxic not dyspneic HEAD: Normocephalic. EYES: Pupils equal round No scleral icterus. ENT: Mucous membranes moist. NECK: Trachea midline. CARDIOVASCULAR: Regular rate and rhythm without murmurs RESPIRATORY: Clear to auscultation. Breath sounds equal bilaterally. No wheezes, rales, or rhonchi. Patient speaking full sentences. No respiratory distress GASTROINTESTINAL: Abdomen soft, non-tender EXTREMITIES: No gross deformities. There is 3+ bilateral pedal edema BACK: No flank tenderness. NEURO: AOx4. SKIN: Warm and dry PSYCH: Not anxious, is cooperative Initial Vital Signs Initial Vital Signs: Vital Signs Temperature 97.9 F 07/23/21 16:25 Pulse Rate 88 07/23/21 16:25 Respiratory Rate 26 H 07/23/21 16:25 Blood Pressure 146/71 H 07/23/21 16:25 Pulse Oximetry 100 07/23/21 16:25 <Jose Roberto Villatoro DO - Last Filed: 07/24/21 00:06> Initial Vital Signs Initial Vital Signs: Vital Signs Temperature 97.9 F 07/23/21 16:25 Pulse Rate 88 07/23/21 16:25 Respiratory Rate 26 H 07/23/21 16:25 Blood Pressure 146/71 H 07/23/21 16:25 Pulse Oximetry 100 07/23/21 16:25 Course <Jose Cummings MD - Last Filed: 07/29/21 13:21> Course Course Narrative: 6:00 p.m.. Sign out to Dr. Villatoro, labs are pending. Need to reassess patient for possible admission Orders Ordered: Discontinued Medications Acetaminophen (Acetaminophen 325 Mg Tablet) 650 mg PO Q6HR PRN PRN Reason: Fever/Mild Pain (1-3) Albuterol (Albuterol Hfa Mdi 60 Puff/8 Gm Inhaler) 2 puff INH RTQ4HR PRN PRN Reason: Shortness Of Breath Albuterol (Albuterol 2.5 Mg/3 Ml Neb (Adult)) 2.5 mg INH [id number] PRN PRN Reason: Shortness Of Breath Atorvastatin Calcium (Atorvastatin 20 Mg Tablet) 40 mg PO BEDTIME [facility] Last Admin: 07/24/21 21:55 Dose: 40 mg Documented by: ROBERTO Dexamethasone (Dexamethasone 10 Mg/Ml Vial) 6 mg IV NOW ONE Stop: 07/23/21 21:57 Last Admin: 07/24/21 00:53 Dose: 6 mg Documented by: ROBERTO Dexamethasone (Dexamethasone 10 Mg/Ml Vial) 6 mg IV DAILY [facility] Last Admin: 07/25/21 09:08 Dose: 6 mg Documented by: Admin: 07/24/21 08:25 Dose: 6 mg Documented by: VISHNU Dextrose (Dextrose 50 % In Water 25 Gm/50 Ml Syringe) 25 gm IV PRN PRN PRN Reason: Hypoglycemia Enoxaparin Sodium (Enoxaparin 40 Mg/0.4 Ml Syringe) 40 mg SUBCUT DAILY [facility] Last Admin: 07/25/21 09:08 Dose: 40 mg Documented by: Admin: 07/24/21 08:29 Dose: 40 mg Documented by: VISHNU Furosemide (Furosemide 40 Mg/4 Ml Vial) 20 mg IV NOW ONE Stop: 07/23/21 17:46 Last Admin: 07/23/21 17:58 Dose: 20 mg Documented by: JACQUI Furosemide (Furosemide 20 Mg/2 Ml Vial) 60 mg IV NOW ONE Stop: 07/23/21 21:54 Last Admin: 07/24/21 00:53 Dose: 60 mg Documented by: ROBERTO Furosemide (Furosemide 20 Mg/2 Ml Vial) 40 mg IV BID [facility] Last Admin: 07/24/21 08:29 Dose: 40 mg Documented by: VISHNU Furosemide (Furosemide 40 Mg/4 Ml Vial) 40 mg IV BID [facility]IGU[facility] ANGEL Furosemide (Furosemide 40 Mg/4 Ml Vial) 40 mg IV Q8H [facility] Last Admin: 07/25/21 12:54 Dose: 40 mg Documented by: Admin: 07/25/21 03:16 Dose: 40 mg Documented by: Admin: 07/24/21 19:55 Dose: 40 mg Documented by: ROBERTO Remdesivir 200 mg/ Sodium (Chloride) 250 mls @ 250 mls/hr IV NOW ONE Stop: 07/23/21 22:55 Last Infusion: 07/24/21 03:47 Dose: 0 mls/hr Documented by: Admin: 07/24/21 00:53 Dose: 250 mls/hr Documented by: ROBERTO Remdesivir 100 mg/ Sodium (Chloride) 250 mls @ 250 mls/hr IV BEDTIME [facility] ANGEL Stop: 07/27/21 21:59 Insulin Glargine (Insulin Glargine 100 Unit/Ml 3ml Pen) 20 unit SUBCUT BEDTIME [facility] Insulin Glargine (Insulin Glargine 100 Unit/Ml 3ml Pen) 20 unit SUBCUT BID [facility] Last Admin: 07/25/21 09:10 Dose: 20 unit Documented by: VISHNU Self by: JUAN Admin: 07/24/21 21:56 Dose: 20 unit Documented by: ROBERTO Self by: DEBORAH Admin: 07/24/21 08:28 Dose: 20 unit Documented by: VISHNU Self by: RADHIKA Insulin Human Lispro (Insulin Lispro 100 Unit/Ml 3ml Vial) 0 unit SUBCUT ACHS [facility]; Protocol Last Admin: 07/25/21 17:09 Dose: 4 unit Documented by: VISHNU Self by: JUAN Admin: 07/25/21 12:54 Dose: 3 unit Documented by: VISHNU Self by: JUAN Admin: 07/25/21 09:09 Dose: 2 unit Documented by: VISHNU Self by: JUAN Admin: 07/24/21 21:56 Dose: 3 unit Documented by: ROBERTO Self by: DEBORAH Admin: 07/24/21 17:53 Dose: 3 unit Documented by: VISHNU Self by: NASEEM Admin: 07/24/21 12:47 Dose: 4 unit Documented by: VISHNU Hannaigned by: MARIA DEL CARMEN Admin: 07/24/21 08:27 Dose: 3 unit Documented by: VISHNU Hannaigned by: RADHIKA Naloxone HCl (Naloxone 0.4 Mg/Ml Vial) 0.2 mg IV Q2MIN PRN PRN Reason: Opiate Reversal Ondansetron HCl (Ondansetron 4 Mg/2 Ml Inj) 4 mg IV Q8HR PRN PRN Reason: Nausea And Vomiting Pantoprazole Sodium (Pantoprazole Dr 20 Mg Tablet) 20 mg PO 0600 [facility] Last Admin: 07/25/21 05:43 Dose: 20 mg Documented by: Admin: 07/24/21 06:20 Dose: 20 mg Documented by: ROBERTO Sennosides (Sennosides 8.6 Mg Tablet) 17.2 mg PO BEDTIME [facility] Last Admin: 07/24/21 21:55 Dose: 17.2 mg Documented by: ROBERTO Vital Signs Vital signs: Vital Signs - 8 hr 07/23/21 16:25 07/23/21 18:33 07/23/21 19:00 Temperature 97.9 F Pulse Rate 88 103 H 104 H Respiratory Rate 26 H Blood Pressure 146/71 H 102/74 104/76 Pulse Oximetry 100 99 98 07/23/21 19:45 07/23/21 20:00 07/23/21 21:22 Temperature Pulse Rate 104 H 104 H 110 H Respiratory Rate 42 H Blood Pressure 104/74 114/80 Pulse Oximetry 100 99 82 L <Jose Roberto Villatoro, - Last Filed: 07/24/21 00:06> Orders Ordered: Discontinued Medications Acetaminophen (Acetaminophen 325 Mg Tablet) 650 mg PO Q6HR PRN PRN Reason: Fever/Mild Pain (1-3) Albuterol (Albuterol Hfa Mdi 60 Puff/8 Gm Inhaler) 2 puff INH RTQ4HR PRN PRN Reason: Shortness Of Breath Albuterol (Albuterol 2.5 Mg/3 Ml Neb (Adult)) 2.5 mg INH [id number] PRN PRN Reason: Shortness Of Breath Atorvastatin Calcium (Atorvastatin 20 Mg Tablet) 40 mg PO BEDTIME [facility] Last Admin: 07/24/21 21:55 Dose: 40 mg Documented by: ROBERTO Dexamethasone (Dexamethasone 10 Mg/Ml Vial) 6 mg IV NOW ONE Stop: 07/23/21 21:57 Last Admin: 07/24/21 00:53 Dose: 6 mg Documented by: ROBERTO Dexamethasone (Dexamethasone 10 Mg/Ml Vial) 6 mg IV DAILY [facility] Last Admin: 07/25/21 09:08 Dose: 6 mg Documented by: Admin: 07/24/21 08:25 Dose: 6 mg Documented by: VISHNU Dextrose (Dextrose 50 % In Water 25 Gm/50 Ml Syringe) 25 gm IV PRN PRN PRN Reason: Hypoglycemia Enoxaparin Sodium (Enoxaparin 40 Mg/0.4 Ml Syringe) 40 mg SUBCUT DAILY [facility] Last Admin: 07/25/21 09:08 Dose: 40 mg Documented by: Admin: 07/24/21 08:29 Dose: 40 mg Documented by: VISHNU Furosemide (Furosemide 40 Mg/4 Ml Vial) 20 mg IV NOW ONE Stop: 07/23/21 17:46 Last Admin: 07/23/21 17:58 Dose: 20 mg Documented by: JACQUI Furosemide (Furosemide 20 Mg/2 Ml Vial) 60 mg IV NOW ONE Stop: 07/23/21 21:54 Last Admin: 07/24/21 00:53 Dose: 60 mg Documented by: ROBERTO Furosemide (Furosemide 20 Mg/2 Ml Vial) 40 mg IV BID [facility] Last Admin: 07/24/21 08:29 Dose: 40 mg Documented by: VISHNU Furosemide (Furosemide 40 Mg/4 Ml Vial) 40 mg IV BID [facility] Furosemide (Furosemide 40 Mg/4 Ml Vial) 40 mg IV Q8H [facility] Last Admin: 07/25/21 12:54 Dose: 40 mg Documented by: Admin: 07/25/21 03:16 Dose: 40 mg Documented by: Admin: 07/24/21 19:55 Dose: 40 mg Documented by: ROBERTO Remdesivir 200 mg/ Sodium (Chloride) 250 mls @ 250 mls/hr IV NOW ONE Stop: 07/23/21 22:55 Last Infusion: 07/24/21 03:47 Dose: 0 mls/hr Documented by: Admin: 07/24/21 00:53 Dose: 250 mls/hr Documented by: ROBERTO Remdesivir 100 mg/ Sodium (Chloride) 250 mls @ 250 mls/hr IV BEDTIME [facility] Stop: 07/27/21 21:59 Insulin Glargine (Insulin Glargine 100 Unit/Ml 3ml Pen) 20 unit SUBCUT BEDTIME MIGUEL ANGEL Insulin Glargine (Insulin Glargine 100 Unit/Ml 3ml Pen) 20 unit SUBCUT BID [facility] Last Admin: 07/25/21 09:10 Dose: 20 unit Documented by: VISHNU Hannaigned by: JUAN Admin: 07/24/21 21:56 Dose: 20 unit Documented by: ROBERTO Cosigned by: DEBORAH Admin: 07/24/21 08:28 Dose: 20 unit Documented by: VISHNU Self by: RADHIKA Insulin Human Lispro (Insulin Lispro 100 Unit/Ml 3ml Vial) 0 unit SUBCUT ACHS [facility]; Protocol Last Admin: 07/25/21 17:09 Dose: 4 unit Documented by: VISHNU Hannaigned by: JUAN Admin: 07/25/21 12:54 Dose: 3 unit Documented by: VISHNU Self by: JUAN Admin: 07/25/21 09:09 Dose: 2 unit Documented by: VISHNU Self by: JUAN Admin: 07/24/21 21:56 Dose: 3 unit Documented by: ROBERTO Cosigned by: DEBORAH Admin: 07/24/21 17:53 Dose: 3 unit Documented by: VISHNU Self by: NASEEM Admin: 07/24/21 12:47 Dose: 4 unit Documented by: VISHNU Self by: MARIA DEL CARMEN Admin: 07/24/21 08:27 Dose: 3 unit Documented by: VISHNU Self by: RADHIKA Naloxone HCl (Naloxone 0.4 Mg/Ml Vial) 0.2 mg IV Q2MIN PRN PRN Reason: Opiate Reversal Ondansetron HCl (Ondansetron 4 Mg/2 Ml Inj) 4 mg IV Q8HR PRN PRN Reason: Nausea And Vomiting Pantoprazole Sodium (Pantoprazole Dr 20 Mg Tablet) 20 mg PO 0600 [facility] Last Admin: 07/25/21 05:43 Dose: 20 mg Documented by: Admin: 07/24/21 06:20 Dose: 20 mg Documented by: ROBERTO Sennosides (Sennosides 8.6 Mg Tablet) 17.2 mg PO BEDTIME [facility] Last Admin: 07/24/21 21:55 Dose: 17.2 mg Documented by: ROBERTO Vital Signs Vital signs: Vital Signs - 8 hr 07/23/21 16:25 07/23/21 18:33 07/23/21 19:00 Temperature 97.9 F Pulse Rate 88 103 H 104 H Respiratory Rate 26 H Blood Pressure 146/71 H 102/74 104/76 Pulse Oximetry 100 99 98 07/23/21 19:45 07/23/21 20:00 07/23/21 21:22 Temperature Pulse Rate 104 H 104 H 110 H Respiratory Rate 42 H Blood Pressure 104/74 114/80 Pulse Oximetry 100 99 82 L MDM - SOB/Dyspnea <Jose Cummings MD - Last Filed: 07/29/21 13:21> Differential Diagnosis Differential diagnosis: Likely congestive heart failure, community acquired pne umonia and other (Viral infection) Lab Data Result diagrams: 07/23/21 17:10 07/25/21 07:00 Labs: Lab Results 07/23/21 07/23/21 07/23/21 Range/Units 17:10 17:10 17:10 WBC 5.8 (4.5-11.0) X10^3/uL RBC 4.75 (4.5-5.9) X10^6/uL Hgb 12.3 L (13.5-17.5) g/dL Hct 38.2 L (41-53) % MCV 80.4 (80-100) fL MCH 25.9 L (26-34) PG MCHC 32.2 (30-36) % RDW 16.2 H (11.6-14.8) % Plt Count 223 (150-400) X10^3/uL Neut % (Auto) 73.7 (50-75) % Lymph % (Auto) 16.8 L (25-40) % [place] % (Auto) 7.2 (3-14) % Eos % (Auto) 1.3 L (2-4) % Baso % (Auto) 1.0 (0-2) % Neut # (Auto) 4300 (5853-0201) /uL Lymph # (Auto) 1000 L (9365-7550) /uL [place] # (Auto) 400 (0-900) /uL Eos # (Auto) 100 (0-450) /uL Baso # (Auto) 100 (0-100) /uL D-Dimer (<230) ng/mL Sodium 137 (137-145) mmol/L Potassium 4.8 (3.4-5.1) mmol/L Chloride 105 (98-107) mmol/L Carbon Dioxide 25 (22-32) mmol/L BUN 28 H (9-20) mg/dL Creatinine 1.68 H (0.66-1.25) mg/dL Estimated GFR 40.3 L (>60) mL/min BUN/Creatinine Ratio 16.7 (6-22) Glucose 259 H (80-110) mg/dL Hemoglobin A1c (4.0-6.0) % Calcium 8.1 L (8.4-10.2) mg/dL Phosphorus (2.3-3.7) mg/dL Magnesium 2.2 (1.6-2.3) mg/dL Total Bilirubin 1.0 (0.2-1.3) mg/dL AST 37 (17-59) IU/L ALT 40 (<50) IU/L Alkaline Phosphatase 195 H (38-126) U/L Total Creatine Kinase 86 (55-170) U/L CK-MB (CK-2) TNP CK-MB (CK-2) Rel Index TNP Troponin I 0.038 H (0.01-0.034) ng/mL NT-Pro-B Natriuret Pep 11625 H (<125) pg/mL Total Protein 7.2 (6.3-8.2) g/dL Albumin 3.6 (3.5-5.0) g/dL Globulin 3.6 (1.7-4.1) g/dL Albumin/Globulin Ratio 1.0 (1.0-2.8) Lipase 432 H (23-300) U/L SARS-CoV-2 (PCR) (Negative) 07/23/21 07/23/21 07/23/21 Range/Units 17:10 17:25 17:32 WBC (4.5-11.0) X10^3/uL RBC (4.5-5.9) X10^6/uL Hgb (13.5-17.5) g/dL Hct (41-53) % MCV (80-100) fL MCH (26-34) PG MCHC (30-36) % RDW (11.6-14.8) % Plt Count (150-400) X10^3/uL Neut % (Auto) (50-75) % Lymph % (Auto) (25-40) % [place] % (Auto) (3-14) % Eos % (Auto) (2-4) % Baso % (Auto) (0-2) % Neut # (Auto) (1794-9100) /uL Lymph # (Auto) (6317-8092) /uL [place] # (Auto) (0-900) /uL Eos # (Auto) (0-450) /uL Baso # (Auto) (0-100) /uL D-Dimer 771 H (<230) ng/mL Sodium (137-145) mmol/L Potassium (3.4-5.1) mmol/L Chloride (98-107) mmol/L Carbon Dioxide (22-32) mmol/L BUN (9-20) mg/dL Creatinine (0.66-1.25) mg/dL Estimated GFR (>60) mL/min BUN/Creatinine Ratio (6-22) Glucose (80-110) mg/dL Hemoglobin A1c 11.7 H (4.0-6.0) % Calcium (8.4-10.2) mg/dL Phosphorus (2.3-3.7) mg/dL Magnesium (1.6-2.3) mg/dL Total Bilirubin (0.2-1.3) mg/dL AST (17-59) IU/L ALT (<50) IU/L Alkaline Phosphatase (38-126) U/L Total Creatine Kinase (55-170) U/L CK-MB (CK-2) CK-MB (CK-2) Rel Index Troponin I (0.01-0.034) ng/mL NT-Pro-B Natriuret Pep (<125) pg/mL Total Protein (6.3-8.2) g/dL Albumin (3.5-5.0) g/dL Globulin (1.7-4.1) g/dL Albumin/Globulin Ratio (1.0-2.8) Lipase (23-300) U/L SARS-CoV-2 (PCR) Positive H (Negative) 07/23/21 Range/Units 17:32 WBC (4.5-11.0) X10^3/uL RBC (4.5-5.9) X10^6/uL Hgb (13.5-17.5) g/dL Hct (41-53) % MCV (80-100) fL MCH (26-34) PG MCHC (30-36) % RDW (11.6-14.8) % Plt Count (150-400) X10^3/uL Neut % (Auto) (50-75) % Lymph % (Auto) (25-40) % [place] % (Auto) (3-14) % Eos % (Auto) (2-4) % Baso % (Auto) (0-2) % Neut # (Auto) (6904-8642) /uL Lymph # (Auto) (2153-5326) /uL [place] # (Auto) (0-900) /uL Eos # (Auto) (0-450) /uL Baso # (Auto) (0-100) /uL D-Dimer (<230) ng/mL Sodium (137-145) mmol/L Potassium (3.4-5.1) mmol/L Chloride (98-107) mmol/L Carbon Dioxide (22-32) mmol/L BUN (9-20) mg/dL Creatinine (0.66-1.25) mg/dL Estimated GFR (>60) mL/min BUN/Creatinine Ratio (6-22) Glucose (80-110) mg/dL Hemoglobin A1c (4.0-6.0) % Calcium (8.4-10.2) mg/dL Phosphorus 3.5 (2.3-3.7) mg/dL Magnesium (1.6-2.3) mg/dL Total Bilirubin (0.2-1.3) mg/dL AST (17-59) IU/L ALT (<50) IU/L Alkaline Phosphatase (38-126) U/L Total Creatine Kinase (55-170) U/L CK-MB (CK-2) CK-MB (CK-2) Rel Index Troponin I (0.01-0.034) ng/mL NT-Pro-B Natriuret Pep (<125) pg/mL Total Protein (6.3-8.2) g/dL Albumin (3.5-5.0) g/dL Globulin (1.7-4.1) g/dL Albumin/Globulin Ratio (1.0-2.8) Lipase (23-300) U/L SARS-CoV-2 (PCR) (Negative) ECG Data Interpretation: Sinus tachycardia rate [address] elevation or depression. , right bundle branch block <Jose Roberto Villatoro, DO - Last Filed: 07/24/21 00:06> Lab Data Labs: Lab Results 07/23/21 07/23/21 07/23/21 Range/Units 17:10 17:10 17:10 WBC 5.8 (4.5-11.0) X10^3/uL RBC 4.75 (4.5-5.9) X10^6/uL Hgb 12.3 L (13.5-17.5) g/dL Hct 38.2 L (41-53) % MCV 80.4 (80-100) fL MCH 25.9 L (26-34) PG MCHC 32.2 (30-36) % RDW 16.2 H (11.6-14.8) % Plt Count 223 (150-400) X10^3/uL Neut % (Auto) 73.7 (50-75) % Lymph % (Auto) 16.8 L (25-40) % [place] % (Auto) 7.2 (3-14) % Eos % (Auto) 1.3 L (2-4) % Baso % (Auto) 1.0 (0-2) % Neut # (Auto) 4300 (2846-8135) /uL Lymph # (Auto) 1000 L (2140-0027) /uL [place] # (Auto) 400 (0-900) /uL Eos # (Auto) 100 (0-450) /uL Baso # (Auto) 100 (0-100) /uL D-Dimer (<230) ng/mL Sodium 137 (137-145) mmol/L Potassium 4.8 (3.4-5.1) mmol/L Chloride 105 (98-107) mmol/L Carbon Dioxide 25 (22-32) mmol/L BUN 28 H (9-20) mg/dL Creatinine 1.68 H (0.66-1.25) mg/dL Estimated GFR 40.3 L (>60) mL/min BUN/Creatinine Ratio 16.7 (6-22) Glucose 259 H (80-110) mg/dL Hemoglobin A1c (4.0-6.0) % Calcium 8.1 L (8.4-10.2) mg/dL Phosphorus (2.3-3.7) mg/dL Magnesium 2.2 (1.6-2.3) mg/dL Total Bilirubin 1.0 (0.2-1.3) mg/dL AST 37 (17-59) IU/L ALT 40 (<50) IU/L Alkaline Phosphatase 195 H (38-126) U/L Total Creatine Kinase 86 (55-170) U/L CK-MB (CK-2) TNP CK-MB (CK-2) Rel Index TNP Troponin I 0.038 H (0.01-0.034) ng/mL NT-Pro-B Natriuret Pep 08231 H (<125) pg/mL Total Protein 7.2 (6.3-8.2) g/dL Albumin 3.6 (3.5-5.0) g/dL Globulin 3.6 (1.7-4.1) g/dL Albumin/Globulin Ratio 1.0 (1.0-2.8) Lipase 432 H (23-300) U/L SARS-CoV-2 (PCR) (Negative) 07/23/21 07/23/21 07/23/21 Range/Units 17:10 17:25 17:32 WBC (4.5-11.0) X10^3/uL RBC (4.5-5.9) X10^6/uL Hgb (13.5-17.5) g/dL Hct (41-53) % MCV (80-100) fL MCH (26-34) PG MCHC (30-36) % RDW (11.6-14.8) % Plt Count (150-400) X10^3/uL Neut % (Auto) (50-75) % Lymph % (Auto) (25-40) % [place] % (Auto) (3-14) % Eos % (Auto) (2-4) % Baso % (Auto) (0-2) % Neut # (Auto) (8284-5387) /uL Lymph # (Auto) (8412-6549) /uL [place] # (Auto) (0-900) /uL Eos # (Auto) (0-450) /uL Baso # (Auto) (0-100) /uL D-Dimer 771 H (<230) ng/mL Sodium (137-145) mmol/L Potassium (3.4-5.1) mmol/L Chloride (98-107) mmol/L Carbon Dioxide (22-32) mmol/L BUN (9-20) mg/dL Creatinine (0.66-1.25) mg/dL Estimated GFR (>60) mL/min BUN/Creatinine Ratio (6-22) Glucose (80-110) mg/dL Hemoglobin A1c 11.7 H (4.0-6.0) % Calcium (8.4-10.2) mg/dL Phosphorus (2.3-3.7) mg/dL Magnesium (1.6-2.3) mg/dL Total Bilirubin (0.2-1.3) mg/dL AST (17-59) IU/L ALT (<50) IU/L Alkaline Phosphatase (38-126) U/L Total Creatine Kinase (55-170) U/L CK-MB (CK-2) CK-MB (CK-2) Rel Index Troponin I (0.01-0.034) ng/mL NT-Pro-B Natriuret Pep (<125) pg/mL Total Protein (6.3-8.2) g/dL Albumin (3.5-5.0) g/dL Globulin (1.7-4.1) g/dL Albumin/Globulin Ratio (1.0-2.8) Lipase (23-300) U/L SARS-CoV-2 (PCR) Positive H (Negative) 07/23/21 Range/Units 17:32 WBC (4.5-11.0) X10^3/uL RBC (4.5-5.9) X10^6/uL Hgb (13.5-17.5) g/dL Hct (41-53) % MCV (80-100) fL MCH (26-34) PG MCHC (30-36) % RDW (11.6-14.8) % Plt Count (150-400) X10^3/uL Neut % (Auto) (50-75) % Lymph % (Auto) (25-40) % [place] % (Auto) (3-14) % Eos % (Auto) (2-4) % Baso % (Auto) (0-2) % Neut # (Auto) (3077-0139) /uL Lymph # (Auto) (0417-9716) /uL [place] # (Auto) (0-900) /uL Eos # (Auto) (0-450) /uL Baso # (Auto) (0-100) /uL D-Dimer (<230) ng/mL Sodium (137-145) mmol/L Potassium (3.4-5.1) mmol/L Chloride (98-107) mmol/L Carbon Dioxide (22-32) mmol/L BUN (9-20) mg/dL Creatinine (0.66-1.25) mg/dL Estimated GFR (>60) mL/min BUN/Creatinine Ratio (6-22) Glucose (80-110) mg/dL Hemoglobin A1c (4.0-6.0) % Calcium (8.4-10.2) mg/dL Phosphorus 3.5 (2.3-3.7) mg/dL Magnesium (1.6-2.3) mg/dL Total Bilirubin (0.2-1.3) mg/dL AST (17-59) IU/L ALT (<50) IU/L Alkaline Phosphatase (38-126) U/L Total Creatine Kinase (55-170) U/L CK-MB (CK-2) CK-MB (CK-2) Rel Index Troponin I (0.01-0.034) ng/mL NT-Pro-B Natriuret Pep (<125) pg/mL Total Protein (6.3-8.2) g/dL Albumin (3.5-5.0) g/dL Globulin (1.7-4.1) g/dL Albumin/Globulin Ratio (1.0-2.8) Lipase (23-300) U/L SARS-CoV-2 (PCR) (Negative) MDM Narrative Medical decision making narrative: Dr villatoro: Received turned over. Review patient's history and physical exam. Labs show a elevated BNP but this is fairly consistent with where he was when he was admitted to the hospital a couple weeks ago for CHF exacerbation. He is COVID positive. Chest x-ray shows no acute pathology. Patient has been tachypneic but not hypoxic. Is speaking in 2-3 word sentences. He stood up to ambulate and did become hypoxic into the 80s but return very quickly with rest. Was given Lasix but only diuresed a small amount. Given his COVID positive stat us, CHF and his tachypnea and hypoxia patient is require admission to the hospital for further evaluation. Discussed the case with GAYATHRI Rollins the [facility] hospital provider who will admit. Discussed need for admission with the patient. He expressed understanding and agreement. Discharge Plan Departure Patient Disposition: Admitted As Inpatient Clinical Impression: COVID-19, CHF (congestive heart failure), Hypoxia Admit Date/Time: 07/23/21 21:31 Admit Provider: Smita Rollins
[2021-07-23 17:57] LABS: Alanine Aminotransferase 40 IU/L (<50); Albumin 3.6 g/dL (3.5-5.0); Alkaline Phosphatase 195 U/L (38-126); Aspartate Aminotransferase 37 IU/L (17-59); BUN Creatinine Ratio 16.7 (6-22); Blood Urea Nitrogen 28 mg/dL (9-20); Calcium 8.1 mg/dL (8.4-10.2); Carbon Dioxide 25 mmol/L (22-32); Chloride 105 mmol/L (98-107); Creatine Kinase 86 U/L (55-170); Estimated Glomerular Filt Rate 40.3 mL/min (>60); Globulin 3.6 g/dL (1.7-4.1); Glucose 259 mg/dL (80-110); Lipase 432 U/L (23-300); Magnesium 2.2 mg/dL (1.6-2.3); Sodium 137 mmol/L (137-145); Total Protein 7.2 g/dL (6.3-8.2)
[2021-07-23] MEDS: FUROSEMIDE 40 MG/4 ML VIAL 20 MG IV (17:58)
[2021-07-23 18:02] LABS: HEMOLYSIS 51 (0-50)
[2021-07-23 18:03] LABS: Potassium 4.8 mmol/L (3.4-5.1)
[2021-07-23 18:06] LABS: NT-proBNP (BNP-Adult 18+) 16100 pg/mL (<125)
[2021-07-23 18:08] LABS: Troponin I 0.038 ng/mL (0.01-0.034)
[2021-07-23 19:05] LABS: COVID19 - ADMIT (NP swab/PCR) POSITIVE (Negative)
[2021-07-23 21:49] LABS: D Dimer 771 ng/mL (<230)
[2021-07-23 22:20] LABS: Phosphorous 3.5 mg/dL (2.3-3.7)
[2021-07-23 22:33] LABS: PCO2 ABG 31.7 mmHg (35-45); PO2 ABG 91 mmHg (80-100)
[2021-07-23 22:34] LABS: Fractionated Inspired Oxygen 21; HCO3 ABG 22 mmol/L (22-26); Oxygen Saturation ABG 98 % (95-100); TCO2 ABG 23 mmol/L (21-31); pH ABG 7.45 (7.35-7.45)
[2021-07-23 22:37] LABS: Hemoglobin A1C% w Est Avg Glu 11.7 % (4.0-6.0)
--- NOTE | 2021-07-23 22:41 | DI.CT.S_ITS ---
PROCEDURE: CT ANGIO CHEST PE PROTOCOL INDICATIONS: ARF, CHF, COvid, Dimer 771 TECHNIQUE: After the administration of intravenous contrast, 2 mm thick sections acquired from the pulmonary apices to the posterior costophrenic angles. 3-dimensional maximum intensity projection (MIP) coronal and sagittal reformats were then acquired through the thorax. For radiation dose reduction, the following was used: automated exposure control, adjustment of mA and/or kV according to patient size. COMPARISON: [facility], CT, CT ANGIO CHEST PE PROTOCOL, 07/06/2021, 11:37. [facility], CT, CT ANGIO CHEST PE PROTOCOL, 12/25/2020, 14:53. FINDINGS: Image quality: Excellent. Pulmonary arteries: Pulmonary arteries are normal in size, and demonstrate no intraluminal filling defects to suggest central pulmonary embolism. Lungs and pleura: Diffuse ground-glass opacities noted in the bilateral lower lobes with associated smooth septal thickening and small bilateral pleural effusions. Patchy right apically densities have decreased in conspicuity. Redemonstration of somewhat lobulated appearance of fluid layering along the right minor fissure. No pneumothorax. Central and peripheral airways are patent. Mediastinum: Heart size is mildly enlarged, without pericardial effusion. Multiple prominent mediastinal and hilar lymph nodes which are more notable for number rather than size are favored to represent reactive adenopathy. Multiple calcified mediastinal lymph nodes likely sequela of prior granulomatous disease. Thoracic aorta is normal in caliber and enhancement. Esophagus is normal in caliber, without hiatal hernia. Atherosclerotic calcifications are noted in the coronary arteries and thoracic aorta. Bones and chest wall: No suspicious bony lesions. Ribs and thoracic spine appear intact throughout. Thyroid gland is unremarkable. No axillary or supraclavicular adenopathy. Abdomen: Visualized upper abdominal solid organs appear normal in the early arterial phase of enhancement. IMPRESSION: 1. No acute pulmonary emboli. No evidence for acute right-sided heart strain. 2. Mild cardiomegaly with diffuse ground-glass opacities, small bilateral pleural effusions, and smooth septal thickening predominantly in the dependent portions of the lungs are again suggestive of pulmonary edema/CHF. 3. Findings compatible with prior granulomatous disease. 4. Atherosclerotic vascular disease. Dictated by: Tom Asher M.D. on 07/24/2021 at 1:52 Approved by: Tom Asher M.D. on 07/24/2021 at 2:01
--- NOTE | 2021-07-24 00:33 | P.HP_ITS ---
History of Present Illness History of Present Illness Date Patient Seen: 07/23/21 Time Patient Seen: 22:00 Chief complaint: difficulty breathing Narrative: Mr. Guerrero is a 75M with PMH of CAD s/p CABG in 2011, DM, HTN, HL, SCHF who comes in with shortness of breath x 3 days, increased swelling in the lower legs.? He states he took home COVID test and it was positive, he is fully vaccinated.? He states his nephew has COVID.? Denies any chest pain, lung disease, fever, body aches chills, abdominal pain, nausea, vomiting, diarrhea, loss of taste or smell. Patient is not on home oxygen. Patient was hospitalized for exacerbation of acute systolic congestive heart failure in December of 2020, an ER visit June 2021. Upon admit patient's temp 97.9?, BP 114/80, patient continues to be tachycardic at a rate of 110, tachypneic 42, O2 saturation of 82% during ambulation trial in ED on room air. Patient normally takes 40 mg of Lasix b.i.d., patient was given 20 mg of Lasix IV in the ED but had no output. Patient is being admitted with a weight of 96.7 kg. Hemoglobin 12.3, hematocrit 38.2, BUN 28, creatinine 1.68, glucose 259, GFR 40.3, (Last known 07/06/21 BUN 18, creatinine 1.22, GFR 58.2, troponin 0.035) alk-phos 195, calcium 8.1, troponin 0.038, BNP 16,100, lipase 432, dimer 771 (age adjusted cut off 730). CTA demonstrated no acute pulmonary emboli, and no evidence for acute right-sided heart strain. Positive for mild cardiomegaly with diffuse ground-glass opacities, small bilateral pleural effusions, and smooth septal thickening predominantly in the dependent portions of the lungs are again suggestive of pulmonary edema/CHF. Findings are also compatible with prior granulomatous disease. Patient has positive atherosclerotic vascular disease. CXR demonstrated moderate cardiomegaly, without a focal pulmonary abnormality. ABGs were within normal range with the exception of pCO2 31.7. Patient is COVID PCR positive. Patient admitted for acute hypoxic respiratory failure due to acute on chronic systolic congestive Heart failure in addition to COVID-19 infection resulting in mild KRISTEL on chronic kidney disease stage 3. Patient History Medical History (Updated 07/24/21 @ 01:29 by ELIEZER Kline) CKD stage 3 due to type 2 diabetes mellitus Coronary artery disease due to type 2 diabetes mellitus Essential hypertension Hyperlipidemia associated with type 2 diabetes mellitus Systolic congestive heart failure Surgical History (Updated 07/24/21 @ 01:31 by ELIEZER Kline) Hx of sternectomy S/P CABG x 4 Family & Social History Family History Mother Congestive heart failure Father Heart attack Social History: household members spouse Safety & Behavioral: Feels Safe in Current Yes Environment Been Physically Hurt or No Threatened By a Person Tobacco & Substance use: Smoking Status Never smoker alcohol intake frequency holiday/special occasion Substance Use Type does not use Meds Home Medications and Allergies Home Medications Medication Instructions Recorded Confirmed Type atorvastatin 40 mg tablet 40 mg PO BEDTIME #30 tab 12/27/20 07/24/21 Rx furosemide 40 mg tablet 40 mg PO BID #60 tab 12/27/20 07/24/21 Rx needle (disp) 30 gauge 30 gauge x #100 ea 12/27/20 07/24/21 Rx 1/2 insulin detemir U-100 100 unit/mL 40 unit SUBCUT BEDTIME 07/24/21 07/24/21 History (3 mL) subcutaneous pen potassium chloride 20 mEq 20 meq PO DAILY 07/24/21 07/24/21 History tablet,extended release(part/cryst) (Klor-Con M) Allergies Allergy/AdvReac Type Severity Reaction Status Date / Time No Known Drug Allergies Allergy Verified 12/25/20 10:24 Review of Systems Review of Systems Narrative: All 12 point systems reviewed with the patient and are negative except otherwise documented. Exam Vital Signs (past 8 hours): - 07/23/21 18:33 07/23/21 19:00 07/23/21 19:45 Pulse Rate 103 H 104 H 104 H Respiratory Rate Blood Pressure 102/74 104/76 104/74 Pulse Oximetry 99 98 100 07/23/21 20:00 07/23/21 21:22 Pulse Rate 104 H 110 H Respiratory Rate 42 H Blood Pressure 114/80 Pulse Oximetry 99 82 L Oxygen Delivery Method Room Air Oxygen Flow Rate 2 Narrative Exam Narrative: General: Patient is a well-developed, well-nourished male in no distress at this time. HEENT: Normocephalic, atraumatic, extraocular muscles intact, oral pharynx is clear and mucous membranes are moist. Neck is supple and symmetric, trachea is midline, no adenopathy, no thyroid enlargement, nontender, no masses palpated. Negative for JVD Chest: Normal AP diameter and contour without kyphoscoliosis, no nasal flaring, retractions. Positive for tachypneic labored breathing. Lungs: Auscultation of all lung cruz are clear, coarse without adventitious sounds, wheezes, rhonchi, or rales. pt speaks in full sentences. Cardio: Tachycardic rate and regular rhythm without murmur, rubs, or gallops, no carotid bruit, no cardiac pulsations present. Abdomen: Soft nontender, negative for organomegaly, or masses. Bowel sounds are present in all 4 quadrants without guarding or rebound, no CVA tenderness. Musculoskeletal: Muscle strength and tone are equal within normal limits, no deformity, crepitus, effusions, cyanosis, or clubbing present. Positive +3 pitting edema bilateral lower extremities. Full range of motion intact radial and pedal pulses are normal. Skin: Warm dry and intact without rashes, ulcerations or petechiae. Neuro: Alert and orientated x3, strength is +5/5 in all extremities, sensation to touch intact, no gross deficits noted of cranial nerves. Psych: Patient has a well-kept appearance, appropriate affect, mental status attitude thought context and judgment are appropriate for age. Objective Labs Result Diagrams: 07/23/21 17:10 07/23/21 17:10 Labs: Laboratory Results - last 24 hr 07/23/21 07/23/21 07/23/21 17:10 17:10 17:10 WBC 5.8 RBC 4.75 Hgb 12.3 L Hct 38.2 L MCV 80.4 MCH 25.9 L MCHC 32.2 RDW 16.2 H Plt Count 223 Neut % (Auto) 73.7 Lymph % (Auto) 16.8 L [place] % (Auto) 7.2 Eos % (Auto) 1.3 L Baso % (Auto) 1.0 Neut # (Auto) 4300 Lymph # (Auto) 1000 L [place] # (Auto) 400 Eos # (Auto) 100 Baso # (Auto) 100 D-Dimer ABG pH ABG pCO2 ABG pO2 ABG HCO3 ABG Total CO2 ABG O2 Saturation ABG Base Excess FiO2 Sodium 137 Potassium 4.8 Chloride 105 Carbon Dioxide 25 BUN 28 H Creatinine 1.68 H Estimated GFR 40.3 L BUN/Creatinine Ratio 16.7 Glucose 259 H Hemoglobin A1c Calcium 8.1 L Phosphorus Magnesium 2.2 Total Bilirubin 1.0 AST 37 ALT 40 Alkaline Phosphatase 195 H Total Creatine Kinase 86 CK-MB (CK-2) TNP CK-MB (CK-2) Rel Index TNP Troponin I 0.038 H NT-Pro-B Natriuret Pep 04055 H Total Protein 7.2 Albumin 3.6 Globulin 3.6 Albumin/Globulin Ratio 1.0 Lipase 432 H SARS-CoV-2 (PCR) 07/23/21 07/23/21 07/23/21 17:10 17:25 17:32 WBC RBC Hgb Hct MCV MCH MCHC RDW Plt Count Neut % (Auto) Lymph % (Auto) [place] % (Auto) Eos % (Auto) Baso % (Auto) Neut # (Auto) Lymph # (Auto) [place] # (Auto) Eos # (Auto) Baso # (Auto) D-Dimer 771 H ABG pH ABG pCO2 ABG pO2 ABG HCO3 ABG Total CO2 ABG O2 Saturation ABG Base Excess FiO2 Sodium Potassium Chloride Carbon Dioxide BUN Creatinine Estimated GFR BUN/Creatinine Ratio Glucose Hemoglobin A1c 11.7 H Calcium Phosphorus Magnesium Total Bilirubin AST ALT Alkaline Phosphatase Total Creatine Kinase CK-MB (CK-2) CK-MB (CK-2) Rel Index Troponin I NT-Pro-B Natriuret Pep Total Protein Albumin Globulin Albumin/Globulin Ratio Lipase SARS-CoV-2 (PCR) Positive H 07/23/21 07/23/21 17:32 22:23 WBC RBC Hgb Hct MCV MCH MCHC RDW Plt Count Neut % (Auto) Lymph % (Auto) [place] % (Auto) Eos % (Auto) Baso % (Auto) Neut # (Auto) Lymph # (Auto) [place] # (Auto) Eos # (Auto) Baso # (Auto) D-Dimer ABG pH 7.45 ABG pCO2 31.7 L ABG pO2 91 ABG HCO3 22 ABG Total CO2 23 ABG O2 Saturation 98 ABG Base Excess -2.0 FiO2 21 Sodium Potassium Chloride Carbon Dioxide BUN Creatinine Estimated GFR BUN/Creatinine Ratio Glucose Hemoglobin A1c Calcium Phosphorus 3.5 Magnesium Total Bilirubin AST ALT Alkaline Phosphatase Total Creatine Kinase CK-MB (CK-2) CK-MB (CK-2) Rel Index Troponin I NT-Pro-B Natriuret Pep Total Protein Albumin Globulin Albumin/Globulin Ratio Lipase SARS-CoV-2 (PCR) Assessment & Plan Assessment & Plan narrative: Mr. Guerrero is a 75M with PMH CAD s/p CABG, DM, HTN, SCHF (HFrEF), HL, CKD3, who came in acute hypoxic respiratory failure, tachycardic, and tachypneic from acute exacerbation of chronic systolic heart failure and positive for COVID-19. Patient requires aggressive diuresis. Patient does have a mild KRISTEL in the setting of chronic CKD stage 3, (creatinine as of 07/06/21 1.22), today Adoption Coordinator 1.68. Patient will also be treated for COVID-19. 1. Acute hypoxic respiratory failure, secondary to acute on chronic, exacerbation systolic congestive heart failure, with COVID-19 viral infection, cardiomegaly, possible pulmonary edema, bilateral pleural effusions, with tachycardia and tachypnea, acute, present on admission temp 97.9?, BP 114/80, HR 110, RR 42, O2 saturation of 82% during ambulation trial in ED on room air. -Given 20 mg of Lasix IV in the ED but had no output. Patient is being admitted with a weight of 96.7 kg. -Ordered 60mg Lasix IV now, then 40mg IV BID -troponin 0.038, BNP 16,100, (Last known 07/06/21 troponin 0.035, BNP 16,300) lipase 432, dimer 771 (age adjusted cut off 730). -trend additional troponins to rule out ACS - CTA demonstrated no acute pulmonary emboli, and no evidence for acute right- sided heart strain. Positive for mild cardiomegaly with diffuse ground-glass opacities, small bilateral pleural effusions, and smooth septal thickening predominantly in the dependent portions of the lungs are again suggestive of pulmonary edema/CHF. Findings are also compatible with prior granulomatous disease. Patient has positive atherosclerotic vascular disease. -CXR demonstrated moderate cardiomegaly, without a focal pulmonary abnormality. ABGs: pCO2 31.7. -12/2020 ECHO showed an EF of 15-20% with mitral regurgitation, tricuspid regurgitation, and aortic regurgitation. 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 -fluid restriction 1500 today, low-sodium diet, low-carbohydrate diet -Strict I&O, daily weights -chest imaging shows no pulmonary edema, or pleural effusions -sinus tachycardia on EKG -Continue carvedilol -The patient was prescribed and already taking a beta-narda. Patient not prescribed Pravin or Arb do to impaired kidney function CKD Stage3 -remdesivir, dexamethasone, albuterol inhaler, Protonix for steriod induced acid reflux. -consider melatonin for sleep in the setting steroids, Protonix for acid reflux from steroids, and Ativan for anxiety. -Respiratory Consult: incentive spirometry, encourage frequent proning. 2. Mild KRISTEL acute on Chronic Kidney Disease Stage 3, chronic, secondary to insulin-dependent type 2 diabetes, present on admission -BUN 28, creatinine 1.68, glucose 259, GFR 40.3, (Last known 07/06/21 BUN 18, creatinine 1.22, GFR 58.2, troponin 0.035) alk-phos 195, calcium 8.1) -Patient may require gentle hydration to improve kidney function due to diuresis effect. 3. Insulin-dependent type 2 diabetes, hyperglycemia, acute on chronic, present on admission-uncontrolled -initial glucose in 259 -admitted under diabetes protocol, monitor for hyper and hypoglycemia. -order sliding scale- low dose -A1C 11.7% -based on A1c patient is not taking Lantus that was started 12/31 on D/C. -initiated Lantus 20 mg b.i.d.- the increase to achieve better glucose control, as steroids are likely to increased blood sugars. 4. Essential Hypertension, chronic, present on admission -initial ED BP 146/71 -Continue carvedilol -Lisinopril & metformin were both stopped previously due to CKD. 5. Hyperlipidemia secondary to insulin-dependent type 2 diabetes, chronic, present on admission -continue atorvastatin at 40mg 6. Coronary artery disease S/P CABG, chronic, present on admission -continue aspirin and statin 7. Obesity as evidence by BMI of 33.2, acute on chronic, present on admission -dietary consult placed -encourage diet and exercise as outpatient Code status: FULL Surrogate decision maker: Spouse Angelina Guerrero COVID PCR:POSITIVE COVID vaccination: Fully vaccinated DVT/VTE prophylaxis: Lovenox 40 and SCDs Disposition: Patient admitted for diuresis and COVID management, expected length of stay greater than 2 midnights. I have utilized all available immediate resources to obtain, update, or review the patient's current medications. I confirmed that the patient's advanced care plan is present, Code status is doc umented and/or surrogate decision maker is listed in the patient's medical record. Time Spent With Patient Critical Care time: I spent a total of [] minutes of critical care time on this patient's care today; this time is exclusive of procedural time. Scores GCS Federico coma scale eye opening: Spontaneous Federico coma scale verbal response: Orientated [place] coma scale motor response: Obey commands Federico coma scale total score: 15
[2021-07-24] MEDS: FUROSEMIDE 20 MG/2 ML VIAL 60 MG IV (00:53)
[2021-07-24] MEDS: REMDESIVIR 200 MG in SODIUM CHLORIDE 0.9% 210 ML 250 ML IV (00:53)
[2021-07-24] MEDS: DEXAMETHASONE 10 MG/ML VIAL 6 MG IV ×2 (00:53→08:25)
[2021-07-24 03:00] VITALS: BP 128/82; PULSE 105; RESP 30; TEMP 37; O2SAT 98
[2021-07-24] MEDS: PANTOPRAZOLE DR 20 MG TABLET PO (06:20)
[2021-07-24 07:00] VITALS: BP 131/87; PULSE 109; RESP 28; TEMP 35.5; O2SAT 100
[2021-07-24 07:21] LABS: INR 1.4 (0.9-1.3)
[2021-07-24 07:25] LABS: Alanine Aminotransferase 36 IU/L (<50); Albumin 3.5 g/dL (3.5-5.0); Alkaline Phosphatase 189 U/L (38-126); Aspartate Aminotransferase 29 IU/L (17-59); BUN Creatinine Ratio 21.4 (6-22); Bilirubin Total 0.9 mg/dL (0.2-1.3); Blood Urea Nitrogen 33 mg/dL (9-20); Calcium 8.3 mg/dL (8.4-10.2); Carbon Dioxide 23 mmol/L (22-32); Chloride 106 mmol/L (98-107); Estimated Glomerular Filt Rate 44.5 mL/min (>60); Globulin 3.6 g/dL (1.7-4.1); Glucose 324 mg/dL (80-110); HEMOLYSIS < 15 (0-50); Magnesium 2.2 mg/dL (1.6-2.3); Potassium 4.6 mmol/L (3.4-5.1); Sodium 135 mmol/L (137-145); Total Protein 7.1 g/dL (6.3-8.2)
--- NOTE | 2021-07-24 07:28 | PC.NURSE ---
At 0131, pt had 7 beat run of VTACH. Asymptomatic, VS WNL for pt. Returned to sinus tach. Provider informed.
[2021-07-24 07:37] LABS: NT-proBNP (BNP-Adult 18+) 14200 pg/mL (<125); Troponin I 0.031 ng/mL (0.01-0.034)
[2021-07-24] MEDS: INSULIN LISPRO 100 UNIT/ML 3ML VIAL SUBCUT ×4 (08:27→21:56)
[2021-07-24] MEDS: INSULIN GLARGINE 100 UNIT/ML 3ML PEN 20 UNIT SUBCUT ×2 (08:28→21:56)
[2021-07-24] MEDS: FUROSEMIDE 20 MG/2 ML VIAL 40 MG IV (08:29)
[2021-07-24] MEDS: ENOXAPARIN 40 MG/0.4 ML SYRINGE SUBCUT (08:29)
--- NOTE | 2021-07-24 10:49 | PC.NURSE ---
Addendum entered by Glory Up R.N. 07/24/21 18:48: Patient had a bowel movement and back to bed, eating well at meals. Addendum entered by Glory Up R.N. 07/24/21 13:00: Patients blood sugar 343. 4U of lispro given. Patient is doing well. O cough noted. Original Note: Assess- Patient is alert and oriented x3, he denies pain. Patient has a rapid heart rate and went into vtach up to the 150s and then down to 109. He was asymptomatic. He does have CHF and his respiration can be increased with activity or ambulation. Breath sounds with crackles to bilateral lower bases. Lasix iv given and patient is using the urinal. He denies pain and is lying supine in bed. No cough noted at this time.
[2021-07-24 11:00] VITALS: BP 132/90; PULSE 106; RESP 28; TEMP 36.1; O2SAT 99
--- NOTE | 2021-07-24 11:20 | CM.DANOTE ---
DCP/continued: Reviewed chart. Patient currently with COVID therefore, CM team not going into room. RN reports that patient is alert and oriented. Unclear at this time if patient I with ADL's. RN checking and will notify CM team after she assesses. P: Anticipate home when stable. CM team following closely. STEVEN Discharge Planning/Care Management Advanced directive, confirm from FAMILY Start: 07/24/21 02:34 Freq: Q24H Status: Active Protocol: Document 07/24/21 02:34 MW (Rec: 07/24/21 02:35 MW [id number]) Advance Directive, confirm on record Time 23:30 Person contacted pt Copy received No CM Discharge Assessment Start: 07/24/21 09:28 Freq: Status: Active Protocol: Document 07/24/21 10:43 KJS (Rec: 07/24/21 11:16 KJS [id number]) Discharge Planning Assessment Assigned [employer] Justice JENNIFER Arora Contact Information Angelina Guerrero (spouse) ph# [phone] Advance Directives? No Advance Directives on File No History Provided By Medical Record Household Members spouse Is patient alert and oriented? Yes: Nursing reports A&O x3 Discharge Plan Home Transportation Arrangement Anticipate family/friend. Comment Patient is a 75yr old male admitted to [facility] with SOB. Patient currently with COVID on of . CM team to follow for d/c planning needs. Review Status In Process Next Review Type Continued Stay Review
--- NOTE | 2021-07-24 12:00 | DIET.PN1 ---
Dietary Progress Note RD Note: Pt screened for uncontrolled DM c A1c 11.7. Pt started on lantus on last hospitalization in December 2020, however, pts A1c only dropped to current level from 11.9 since that time. Pt had been connected with DM educator in past who went to his home to educate and set up kitchen for DM friendly food/cooking. Pt admitted c covid PNA. Pts body weight is +3kg since December 2020. Ht: 170.18 cm Wt: 96.7 kg BMI: 33.3 Last BM: () MNA: 13 Rubné Score: 23 Diet: 07/23/21 Breakfast Carbohydrate Consistent Diet Diet Modifications: Carbohydrate level: Small (2 CHO) Bedtime snack: Yes Fluid Restriction Diet Diet Modifications: Total fluid amount: 1,500 Amount allotted to patient trays: 150 Free water included in total: Yes Fluid in addition to trays: 2760-4001 amount: 600 4516-4205 amount: 600 Low Sodium Diet (2gm) Diet Modifications: 07/23/21 16:31 NPO Diet Diet Modifications: NPO Type: Strict Nutrition Percent Meal Consumed 90% 07/24/21 09:35 Labs: RBC 4.75 X10^6/uL (4.5-5.9) 07/23/21 17:10 Hgb 12.3 g/dL (13.5-17.5) L 07/23/21 17:10 Hct 38.2 % (41-53) L 07/23/21 17:10 Creatinine 1.54 mg/dL (0.66-1.25) H 07/24/21 06:45 Hemoglobin A1c 11.7 % (4.0-6.0) H 07/23/21 17:32 NT-Pro-B Natriuret Pep 95100 pg/mL (<125) H 07/24/21 06:45 Monitoring/Evaluations: Will continue DM teaching this hospitalization and identify barriers to good DM management. Electronically Signed by: Leticia Dallas 07/24/21 12:00 [address] [address]
--- NOTE | 2021-07-24 13:06 | DIAB.INIT ---
Initial Diabetes Education Assessment Name: Garland Guerrero Date:07/24/21 Time:1pm 75 y/o M admitted with SOB and increased swelling of LE. PMH of DM, CAD, HLD, HTN, CKD 3, CHF, CABG, KRISTEL. HgA1c of 11.7%, barely down from previous 11.7%. Started on Lantus on last hospitalization. Garland endorses taking 40u HS at home, however HgA1c remains elevated. Discussed h/o seeing DM ed with IP RD (Leticia), but during our discussion he denies seeing a CDE ever in the past. States he has had DM all my life. Saw a dietitian years ago. Interested in OP DM ed. States he needs a home meter. Has not been checking Bg due to no meter. Has PCP at [facility] (Zeina Cano). Recent BG elevated: 189, 282 mg/dL Diabetes medications: Glargine 20u BID, SSI Lispro Labs: RBC 4.75 X10^6/uL (4.5-5.9) 07/23/21 17:10 Hgb 12.3 g/dL (13.5-17.5) L 07/23/21 17:10 Hct 38.2 % (41-53) L 07/23/21 17:10 Creatinine 1.54 mg/dL (0.66-1.25) H 07/24/21 06:45 Hemoglobin A1c 11.7 % (4.0-6.0) H 07/23/21 17:32 NT-Pro-B Natriuret Pep 96210 pg/mL (<125) H 07/24/21 06:45 Diet: 07/23/21 Breakfast Carbohydrate Consistent Diet Diet Modifications: Carbohydrate level: Small (2 CHO) Bedtime snack: Yes Fluid Restriction Diet Diet Modifications: Total fluid amount: 1,500 Amount allotted to patient trays: 150 Free water included in total: Yes Fluid in addition to trays: 9629-2015 amount: 600 2443-9368 amount: 600 Low Sodium Diet (2gm) Diet Modifications: 07/23/21 16:31 NPO Diet Diet Modifications: NPO Type: Strict Nutrition Percent Meal Consumed 90% 07/24/21 09:35 Intervention: 1. currently on CCD 2. Will further discuss DSME program with pt this week and coordinate referral for OP services 3. Rec keeping BG <180 mg/dL Follow-up: ALLISON RINALDI follow-up 2-3 days Lakesha Cook RDN, [employer] Certified Diabetes Care and Roads Supervisor P: [phone]
[2021-07-24 15:00] VITALS: BP 122/85; PULSE 102; RESP 22; TEMP 35.9; O2SAT 98
--- NOTE | 2021-07-24 18:49 | P.PN_ITS ---
Subjective Subjective Date Patient Seen: 07/24/21 Interval history: 75-year-old male admitted to the hospital for acute hypoxic respiratory failure secondary to acute systolic heart failure, COVID-19 infection. Patient reports he continues to have shortness of breath with minimal exertion. Despite that he feels a bit improved. He states his urine output has dropped off since admissio n. Patient has a nonproductive cough. Exam Vital Signs (past 8 hours): - 07/24/21 11:00 07/24/21 15:00 Temperature 97 F L 96.6 F L Pulse Rate 106 H 102 H Respiratory Rate 28 H 22 Blood Pressure 132/90 122/85 Pulse Oximetry 99 98 Oxygen Delivery Method Room Air,Nasal Cannula Oxygen Flow Rate 1 Narrative Exam Narrative: Ill-appearing elderly male lying in bed Resp Other: Lungs: Decreased breath sounds but clear to auscultation Cardio Other: Cardiac exam: Regular rate and rhythm normal S1-S2 with a 2/6 systolic ejection murmur GI Other: Abdomen: Soft nontender nondistended Extrem Other: Extremities: 1+ edema Objective Labs Result Diagrams: 07/23/21 17:10 07/24/21 06:45 Labs: Laboratory Results - last 24 hr 07/23/21 07/23/21 07/23/21 17:10 17:25 17:32 PT INR D-Dimer 771 H ABG pH ABG pCO2 ABG pO2 ABG HCO3 ABG Total CO2 ABG O2 Saturation ABG Base Excess FiO2 Sodium Potassium Chloride Carbon Dioxide BUN Creatinine Estimated GFR BUN/Creatinine Ratio Glucose Hemoglobin A1c 11.7 H Calcium Phosphorus Magnesium Total Bilirubin AST ALT Alkaline Phosphatase Troponin I NT-Pro-B Natriuret Pep Total Protein Albumin Globulin Albumin/Globulin Ratio SARS-CoV-2 (PCR) Positive H 07/23/21 07/23/21 07/24/21 17:32 22:23 06:45 PT 16.0 H INR 1.4 H D-Dimer ABG pH 7.45 ABG pCO2 31.7 L ABG pO2 91 ABG HCO3 22 ABG Total CO2 23 ABG O2 Saturation 98 ABG Base Excess -2.0 FiO2 21 Sodium Potassium Chloride Carbon Dioxide BUN Creatinine Estimated GFR BUN/Creatinine Ratio Glucose Hemoglobin A1c Calcium Phosphorus 3.5 Magnesium Total Bilirubin AST ALT Alkaline Phosphatase Troponin I NT-Pro-B Natriuret Pep Total Protein Albumin Globulin Albumin/Globulin Ratio SARS-CoV-2 (PCR) 07/24/21 06:45 PT INR D-Dimer ABG pH ABG pCO2 ABG pO2 ABG HCO3 ABG Total CO2 ABG O2 Saturation ABG Base Excess FiO2 Sodium 135 L Potassium 4.6 Chloride 106 Carbon Dioxide 23 BUN 33 H Creatinine 1.54 H Estimated GFR 44.5 L BUN/Creatinine Ratio 21.4 Glucose 324 H Hemoglobin A1c Calcium 8.3 L Phosphorus Magnesium 2.2 Total Bilirubin 0.9 AST 29 ALT 36 Alkaline Phosphatase 189 H Troponin I 0.031 NT-Pro-B Natriuret Pep 70819 H Total Protein 7.1 Albumin 3.5 Globulin 3.6 Albumin/Globulin Ratio 1.0 SARS-CoV-2 (PCR) PFSH Medical History (Updated 07/24/21 @ 01:29 by ELIEZER Kline) CKD stage 3 due to type 2 diabetes mellitus Coronary artery disease due to type 2 diabetes mellitus Essential hypertension Hyperlipidemia associated with type 2 diabetes mellitus Systolic congestive heart failure Surgical History (Updated 07/24/21 @ 01:31 by ELIEZER Kline) Hx of sternectomy S/P CABG x 4 Family History Mother Congestive heart failure Father Heart attack Social History household members: spouse Smoking Status: Never smoker Assessment & Plan Assessment & Plan narrative: ?Acute hypoxic respiratory failure, secondary to acute on chronic, exacerbation systolic congestive heart failure, with COVID-19 viral infection, temp 97.9?, BP 114/80, HR 110, RR 42, O2 saturation of 82% during ambulation trial in ED on room air.? -will increase Lasix to 40 IV Q 8 -12/2020 ECHO showed an EF of 15-20% with mitral regurgitation, tricuspid regurgitation, and aortic regurgitation. -He has not seen a PCP and does not have a physician practice coordinator. --Strict I&O, daily weights -chest imaging shows no pulmonary edema, or pleural effusions -sinus tachycardia on EKG -Continue carvedilol -The patient was prescribed and already taking a beta-narda. ? Patient not prescribed Pravin or Arb do to impaired kidney function CKD Stage3 -remdesivir, dexamethasone, albuterol inhaler, Protonix for steriod induced acid reflux. -will discontinue remdesivir given renal insufficiency -consider melatonin for sleep in the setting steroids, Protonix for acid reflux from steroids, and Ativan for anxiety. -Respiratory Consult: incentive spirometry, encourage frequent proning. 2. Mild KRISTEL acute on Chronic Kidney Disease Stage 3, chronic, secondary to insulin-dependent type 2 diabetes,? present on admission ?-BUN 28, creatinine 1.68, glucose 259, GFR 40.3,? (Last known 07/06/21 BUN 18, creatinine 1.22, GFR 58.2, troponin 0.035) alk-phos 195, calcium 8.1) 3. Insulin-dependent type 2 diabetes, hyperglycemia, acute on chronic, present on admission-uncontrolled -initial glucose in 259 -admitted under diabetes protocol, monitor for hyper and hypoglycemia. -order sliding scale- low dose -A1C 11.7% -based on A1c patient is not taking Lantus that was started 12/31 on D/C. -initiated Lantus 20 mg b.i.d.- the increase to achieve better glucose control, as steroids are likely to increased blood sugars. 4. Essential Hypertension, chronic, present on admission -initial ED BP 146/71 -Continue carvedilol -Lisinopril & metformin were both stopped previously due to CKD. ?5. Hyperlipidemia secondary to insulin-dependent type 2 diabetes, chronic, present on admission -continue atorvastatin at 40mg 6. Coronary artery disease S/P CABG, chronic, present on admission -continue aspirin and statin 7. Obesity as evidence by BMI of 33.2, acute on chronic, present on admission -dietary consult placed -encourage diet and exercise as outpatient Time Spent With Patient Critical Care time: I spent a total of [] minutes of critical care time on this patient's care today; this time is exclusive of procedural time.
[2021-07-24] MEDS: FUROSEMIDE 40 MG/4 ML VIAL IV (19:55)
[2021-07-24 20:00] VITALS: BP 121/83; PULSE 100; RESP 22; TEMP 36.1; O2SAT 97
[2021-07-24] MEDS: SENNOSIDES 8.6 MG TABLET 17.2 MG PO (21:55)
[2021-07-24] MEDS: ATORVASTATIN 20 MG TABLET 40 MG PO (21:55)
[2021-07-25] VITALS: BP 132/74; PULSE 101; RESP 24; TEMP 37.1; O2SAT 97
[2021-07-25] MEDS: FUROSEMIDE 40 MG/4 ML VIAL IV ×2 (03:16→12:54)
[2021-07-25 03:54] VITALS: BP 116/77; PULSE 101; RESP 30; TEMP 36.2; O2SAT 98
[2021-07-25] MEDS: PANTOPRAZOLE DR 20 MG TABLET PO (05:43)
--- NOTE | 2021-07-25 05:54 | PC.NURSE ---
At 0503, pt had 6 beat run of VTACH. Asymptomatic, asleep. Provider informed. At 0540, pt had 9 beat run of VTACH. Asymptomatic, asleep. Woken up to discuss, pt reports no abnormal events during sleep. Provider informed. Ordered magnesium add-on to morning labs.
[2021-07-25 07:57] LABS: Alanine Aminotransferase 29 IU/L (<50); Albumin 3.2 g/dL (3.5-5.0); Alkaline Phosphatase 169 U/L (38-126); Aspartate Aminotransferase 26 IU/L (17-59); BUN Creatinine Ratio 23.7 (6-22); Bilirubin Total 0.8 mg/dL (0.2-1.3); Blood Urea Nitrogen 40 mg/dL (9-20); Calcium 8.1 mg/dL (8.4-10.2); Carbon Dioxide 25 mmol/L (22-32); Chloride 104 mmol/L (98-107); Globulin 3.2 g/dL (1.7-4.1); Glucose 245 mg/dL (80-110); HEMOLYSIS < 15 (0-50); Potassium 3.9 mmol/L (3.4-5.1); Sodium 136 mmol/L (137-145); Total Protein 6.4 g/dL (6.3-8.2)
[2021-07-25 08:00] VITALS: BP 127/84; PULSE 100; RESP 28; TEMP 35.6; O2SAT 97
[2021-07-25 08:02] LABS: Magnesium 2.1 mg/dL (1.6-2.3)
[2021-07-25] MEDS: DEXAMETHASONE 10 MG/ML VIAL 6 MG IV (09:08)
[2021-07-25] MEDS: ENOXAPARIN 40 MG/0.4 ML SYRINGE SUBCUT (09:08)
[2021-07-25] MEDS: INSULIN LISPRO 100 UNIT/ML 3ML VIAL SUBCUT ×3 (09:09→17:09)
[2021-07-25] MEDS: INSULIN GLARGINE 100 UNIT/ML 3ML PEN 20 UNIT SUBCUT (09:10)
[2021-07-25 10:00] VITALS: O2SAT 95
[2021-07-25 12:00] VITALS: BP 111/82; PULSE 101; RESP 24; TEMP 33.9; O2SAT 99
--- NOTE | 2021-07-25 13:20 | PC.NURSE ---
Addendum entered by Glory Up R.N. 07/25/21 15:38: Patient being seen by right now and he may discharge to home. Original Note: Patient is alert and oriented x3, denies pain. Up to the commode and had a small soft bowel movement. Patients lung sounds are cta, he is on 1l of oxygen, will take this off a bit later to see how he does on ra.
--- NOTE | 2021-07-25 16:14 | PM.DS.1 ---
History of Present Illness History of Present Illness Date Patient Seen: 07/25/21 Time Patient Seen: 16:14 Chief complaint: difficulty breathing Narrative: Mr. Guerrero is a 75M with PMH of CAD s/p CABG in 2011, DM, HTN, HL, SCHF who comes in with shortness of breath x 3 days, increased swelling in the lower legs.? He states he took home COVID test and it was positive, he is fully vaccinated.? He states his nephew has COVID.? Denies any chest pain, lung disease, fever, body aches chills, abdominal pain, nausea, vomiting, diarrhea, loss of taste or smell.? Patient is not on home oxygen.? Patient was hospitalized for exacerbation of acute systolic congestive heart failure in December of 2020, an ER visit June 2021. Upon admit patient's temp 97.9?, BP 114/80, patient continues to be tachycardic at a rate of 110, tachypneic 42, O2 saturation of 82% during ambulation trial in ED on room air.? Patient normally takes 40 mg of Lasix b.i.d., patient was given 20 mg of Lasix IV in the ED but had no output.? Patient is being admitted with a weight of 96.7 kg.? Hemoglobin 12.3, hematocrit 38.2, BUN 28, creatinine 1.68, glucose 259, GFR 40.3,? (Last known 07/06/21 BUN 18, creatinine 1.22, GFR 58.2, troponin 0.035) alk-phos 195, calcium 8.1, troponin 0.038, BNP 16,100, lipase 432, dimer 771 (age adjusted cut off 730). CTA demonstrated no acute pulmonary emboli, and no evidence for acute right-sided heart strain. Positive for mild cardiomegaly with diffuse ground-glass opacities, small bilateral pleural effusions, and smooth septal thickening predominantly in the dependent portions of the lungs are again suggestive of pulmonary edema/CHF. Findings are also compatible with prior granulomatous disease. Patient has positive atherosclerotic vascular disease. CXR demonstrated?moderate cardiomegaly, without a focal pulmonary abnormality.? ABGs were within normal range with the exception of pCO2 31.7.? Patient is COVID PCR positive.? Patient admitted for acute hypoxic respiratory failure due to acute on chronic systolic congestive Heart failure in addition to COVID-19 infection resulting in mild KRISTEL on chronic kidney disease stage 3. Discharge Providers Provider Date of admission: 07/23/21 21:31 Discharge Date: 07/25/21 Primary care physician: Zeina Cano MD Consults: 07/23/21 21:58 Consult to Respiratory Therapy Evaluate & Treat Comment: CHF exac/Covid Physician Instructions: Evaluate and treat Discharge provider: Bekah Sewell MD Summary Hospital Course Discharge Diagnosis: Hypoxic respiratory failure 2. Acute systolic heart failure 3. COVID-19 pneumonia 4. Chronic kidney disease stage 3 5. Type 2 diabetes Hospital Course: Patient was admitted to the hospital with acute hypoxic respiratory failure. Was found to have a room air sat of 82%. Patient was positive for COVID-19. Patient was started on Decadron and remdesivir. Patient was found to have a mild KRISTEL, he continued on insulin. The patient had a slow response to diuresis. His Lasix was increased to 40 IV Q 8 with improved response. Given the patient's renal insufficiency the remdesivir was discontinued, however he continued on Decadron. The patient made slow but steady improvement, his oxygenation improved, he was no longer short of breath. His room air saturation was 98%. Patient was deemed appropriate for discharge and arrangements were made for him to discharge home Status at Discharge Cognitive/behavioral status at discharge: oriented Functional status at discharge: independent ambulation Overall status at discharge: patient is progressing back to baseline Exam Vital Signs (past 8 hours): - 07/25/21 10:00 07/25/21 12:00 Temperature 93.1 F L Pulse Rate 101 H Respiratory Rate 24 Blood Pressure 111/82 Pulse Oximetry 95 99 Oxygen Delivery Method Nasal Cannula Oxygen Flow Rate 1 Narrative Exam Narrative: Pleasant male lying in bed in no distress Resp Other: Lungs clear to auscultation Cardio Other: Cardiac exam: Regular rate and rhythm normal S1-S2 GI Other: Abdomen soft nontender nondistended Extrem Other: Extremity no edema Objective Labs Result Diagrams: 07/23/21 17:10 07/25/21 07:00 Labs: Laboratory Results - last 24 hr 07/25/21 07/25/21 07:00 07:00 Sodium 136 L Potassium 3.9 Chloride 104 Carbon Dioxide 25 BUN 40 H Creatinine 1.69 H Estimated GFR 40.0 L BUN/Creatinine Ratio 23.7 H Glucose 245 H Calcium 8.1 L Magnesium 2.1 Total Bilirubin 0.8 AST 26 ALT 29 Alkaline Phosphatase 169 H Total Protein 6.4 Albumin 3.2 L Globulin 3.2 Albumin/Globulin Ratio 1.0 PFSH Medical History (Updated 07/24/21 @ 01:29 by Smita Rollins [facility]) CKD stage 3 due to type 2 diabetes mellitus Coronary artery disease due to type 2 diabetes mellitus Essential hypertension Hyperlipidemia associated with type 2 diabetes mellitus Systolic congestive heart failure Surgical History (Updated 07/24/21 @ 01:31 by Smita Rollins [facility]) Hx of sternectomy S/P CABG x 4 Family History Mother Congestive heart failure Father Heart attack Social History household members: spouse Smoking Status: Never smoker Discharge Assessment & Plan Assessment and Plan Assessment: 1. Acute hypoxic respiratory failure 2. COVID pneumonia 3. Acute systolic heart failure 4. Chronic kidney disease 5. Type 2 diabetes Plan of Treatment: Discharge home on medications prescribed Follow-up with PCP in clinic next week Discharge Plan Discharge Plan Patient Disposition: Home Discharge orders & Medications Prescriptions: New spironolactone 25 mg tablet 12.5 mg PO DAILY Qty: 30 0RF lisinopril 2.5 mg tablet 2.5 mg PO DAILY Qty: 30 0RF Continued furosemide 40 mg Tablet 40 mg PO BID Qty: 60 0RF atorvastatin 40 mg tablet 40 mg PO BEDTIME Qty: 30 0RF insulin detemir U-100 100 unit/mL (3 mL) insulin pen 40 unit SUBCUT BEDTIME 0RF Discontinued potassium chloride [Klor-Con M20] 20 mEq tablet,ER particles/crystals 20 meq PO DAILY 0RF No Action (DME) needle (disp) 30 gauge 30 gauge x 1/2 needle See Rx Instructions .ROUTE .MEDSUPPLY Qty: 100 0RF Rx Instructions: As directed Follow up/Referrals: Zeina Cano MD [Primary Care Provider] - Discharge Health Status Multidrug resistant organism: No MDRO Diet/Activity/Treatments Diet: Low-fat and Low-sodium Discharge Data Primary Care Provider: Zeina Cano
== END 2021-07-25 17:30 | disposition home or self-care (01) | DRG 177 ==
LOC: ED 18:00 → AC 21:31
PROVIDERS: Emergency Medicine; Nurse Practitioner Family; Admitting Provider Nurse Practitioner Family; Emergency Provider Emergency Medicine; PCP Family Medicine; Referring Provider Emergency Medicine; Visit Provider Nurse Practitioner Family
DX: U07.1 COVID-19 (principal); I50.23 Acute on chronic systolic (congestive) heart failure; J12.82 Pneumonia due to coronavirus disease 2019; I13.0 Hypertensive heart and chronic kidney disease with heart failure and stage 1 through stage 4 chronic kidney disease, or unspecified chronic kidney disease; N18.30 Chronic kidney disease, stage 3 unspecified; E11.22 Type 2 diabetes mellitus with diabetic chronic kidney disease; E66.9 Obesity, unspecified; Z68.33 Body mass index [BMI] 33.0-33.9, adult; E11.65 Type 2 diabetes mellitus with hyperglycemia; I25.10 Atherosclerotic heart disease of native coronary artery without angina pectoris; E78.5 Hyperlipidemia, unspecified; Z79.4 Long term (current) use of insulin; Z95.1 Presence of aortocoronary bypass graft
CPT/HCPCS: 36415; 36600; 71045; 71275; 80053; 82550; 82805; 82962; 83036; 83690; 83735; 83880; 84100; 84484; 85025; 85379; 85610; 87635; 93005; 93010; 94762; 96374; 99284; 99285; C9803; A9270; J1100; J1650; J1815; J1940; Q9967

== ENCOUNTER 2021-08-05 10:39 | Emergency (ER) | payer MEDICARE, OTHER, SELFPAY ==
[2021-07-23 23:30] VITALS: BMI 33.3
[2021-08-05] VITALS (18 sets, daily range): BP systolic 98–120; BP diastolic 67–82; PULSE 90–96; RESP 14–35; TEMP 37.1; O2SAT 71–100; BMI 31.3
--- NOTE | 2021-08-05 10:54 | DI.RAD.S_ITS ---
PROCEDURE: XR CHEST 1V INDICATIONS: chest pain TECHNIQUE: One view of the chest was acquired. COMPARISON: [facility], CR, XR CHEST 1V, 07/23/2021, 16:35. FINDINGS: Surgical changes and devices: Sternal wires are present. Lungs and pleura: Increased interstitial markings are present. No pleural effusions or pneumothorax. Mediastinum: Mediastinal contours appear normal. Heart size is markedly enlarged. Bones and chest wall: No suspicious bony lesions. Overlying soft tissues appear unremarkable. IMPRESSION: Increased interstitial markings possibly related to poor inspiratory effort. However, edema cannot be excluded. Dictated by: Lo Ware M.D. on 08/05/2021 at 11:28 Approved by: Lo Ware M.D. on 08/05/2021 at 11:29
[2021-08-05 11:06] LABS: Add Manual Diff / Slide Review NO; Basophils Absolute Auto 100 /uL (0-100); Basophils Percent Auto 0.8 % (0-2); Eosinophils Absolute Auto 100 /uL (0-450); Hematocrit 38.8 % (41-53); Hemoglobin 12.4 g/dL (13.5-17.5); Lymphocytes Absolute Auto 700 /uL (1100-4500); Lymphocytes Percent Auto 10.1 % (25-40); Mean Corpuscular Volume 81.3 fL (80-100); Monocytes Absolute Auto 500 /uL (0-900); Monocytes Percent Auto 6.5 % (3-14); Neutrophils Absolute Auto 5900 /uL (1500-7000); Neutrophils Percent Auto 81.6 % (50-75); Platelet Count 137 X10^3/uL (150-400); Red Blood Cell Count 4.78 X10^6/uL (4.5-5.9); Red Cell Distribution Width 17.5 % (11.6-14.8); White Blood Cell Count 7.2 X10^3/uL (4.5-11.0)
[2021-08-05 11:22] LABS: Alanine Aminotransferase 17 IU/L (<50); Albumin 3.5 g/dL (3.5-5.0); Albumin Globulin Ratio 1.1 (1.0-2.8); Alkaline Phosphatase 153 U/L (38-126); Aspartate Aminotransferase 26 IU/L (17-59); BUN Creatinine Ratio 18.1 (6-22); Bilirubin Total 1.1 mg/dL (0.2-1.3); Blood Urea Nitrogen 30 mg/dL (9-20); Calcium 8.8 mg/dL (8.4-10.2); Carbon Dioxide 27 mmol/L (22-32); Chloride 106 mmol/L (98-107); Creatine Kinase 68 U/L (55-170); Estimated Glomerular Filt Rate 40.8 mL/min (>60); Globulin 3.1 g/dL (1.7-4.1); Glucose 301 mg/dL (80-110); HEMOLYSIS < 15 (0-50); Lipase 615 U/L (23-300); Potassium 4.9 mmol/L (3.4-5.1); Sodium 137 mmol/L (137-145); Total Protein 6.6 g/dL (6.3-8.2)
[2021-08-05 11:28] LABS: NT-proBNP (BNP-Adult 18+) 13100 pg/mL (<125)
[2021-08-05 11:30] LABS: Troponin I 0.032 ng/mL (0.01-0.034)
[2021-08-05] MEDS: FUROSEMIDE 40 MG TABLET 80 MG PO (12:44)
--- NOTE | 2021-08-05 12:50 | ED_ITS ---
HPI - SOB/Dyspnea <Papo Duggan PA-C - Last Filed: 08/05/21 19:39> General Chief Complaint: Shortness of Breath/Dyspnea Stated Complaint: Chest pain [facility] Time Seen by Provider: 08/05/21 12:06 Source: patient Mode of arrival: Wheelchair Limitations: no limitations History of Present Illness HPI Narrative: Patient is a 75-year-old male with a history of congestive heart failure presenting to the emergency department today for evaluation of shortness of breath. Patient states that his shortness of breath has worsened since 07/06/2021. Patient states that he cannot exert himself or lie flat because this will increase his shortness of breath. Patient states that he takes a ?water pill?, but notes that he weighs it is no longer working. He states that his shortness of breath worsened last night causing him to make the trip to the emergency department. Of note, patient states he was diagnosed with COVID-19 last week the a at home test. Patient denies fever, chills, chest pain, nausea, vomiting, diarrhea, abdominal pain, dysuria, hematuria, diaphoresis, jaw pain, pain in the upper extremities, or any other concerning symptoms. No further concerns were voiced at this time. Related Data Home Medications Medication Instructions Recorded Confirmed insulin detemir U-100 100 unit/mL 40 unit SUBCUT BEDTIME 07/24/21 07/24/21 (3 mL) subcutaneous pen Previous Rx's Medication Instructions Recorded atorvastatin 40 mg tablet 40 mg PO BEDTIME #30 tab 12/27/20 furosemide 40 mg tablet 40 mg PO BID #60 tab 12/27/20 needle (disp) 30 gauge 30 gauge x #100 ea 12/27/20 1/ carvedilol 3.125 mg tablet (Coreg) 3.125 mg PO Q12H #60 tab 07/25/21 lisinopril 2.5 mg tablet 2.5 mg PO DAILY #30 tab 07/25/21 spironolactone 25 mg tablet 12.5 mg PO DAILY #30 tab 07/25/21 furosemide 80 mg tablet (Lasix) 80 mg PO BID #30 tab 08/05/21 Allergies Allergy/AdvReac Type Severity Reaction Status Date / Time No Known Drug Allergies Allergy Verified 12/25/20 10:24 Review of Systems <Papo Duggan PA-C - Last Filed: 08/05/21 19:39> Constitutional Constitutional: Denies chills, Denies fatigue, Denies fever(s), Denies frequent falls, Denies lethargy and Denies weakness Eyes Eyes: Denies loss of vision ENT Ears, Nose, Mouth, and Throat: Denies dizziness and Denies neck pain Cardiovascular Cardiovascular: Denies chest pain, Denies irregular heart rhythm, Denies lightheadedness, Denies palpitations, Reports dyspnea, Reports dyspnea on exertion and Reports orthopnea Respiratory Respiratory: Denies cough, Reports dyspnea, Reports dyspnea on exertion and Denies wheezing Gastrointestinal Gastrointestinal: Denies abdominal pain, Denies change in bowel habits, Denies diarrhea, Denies nausea and Denies vomiting Genitourinary Genitourinary: Denies hematuria, Denies flank pain, Denies urinary incontinence and Denies urinary urgency Musculoskeletal Musculoskeletal: Denies back pain, Denies muscle weakness, Denies neck pain, Denies numbness and Denies tingling Integumentary/Breasts Skin/Breast: Denies pruritus, Denies erythema, Denies rash and Denies wounds Neurologic Neurologic: Denies behavioral changes, Denies confusion, Denies dizziness, Denies frequent falls, Denies loss of vision, Denies numbness, Denies tingling and Denies weakness Psychiatric Psychiatric: Denies behavioral changes and Denies confusion Endocrine Endocrine: Denies fatigue and Denies palpitations Allergic/Immunologic Allergic/Immunologic: Denies wheezing Patient History <Papo Duggan PA-C - Last Filed: 08/05/21 19:39> Medical History CKD stage 3 due to type 2 diabetes mellitus Coronary artery disease due to type 2 diabetes mellitus Essential hypertension Hyperlipidemia associated with type 2 diabetes mellitus Systolic congestive heart failure Surgical History Hx of sternectomy S/P CABG x 4 Family History Mother Congestive heart failure Father Heart attack Social History household members: spouse Smoking Status: Never smoker Smoking Status: Never smoker alcohol intake frequency: holidays/special occasions only Substance Use Type: does not use Exam <Papo Duggan PA-C - Last Filed: 08/05/21 19:39> Narrative Exam Narrative: GENERAL: 75 year old patient appears stated age. Well-developed patient, in mild distress. HEAD: Atraumatic. Normocephalic. EYES: Pupils equal round and reactive. Extraocular motions intact. No scleral icterus. No injection or drainage. ENT: Nose without bleeding, purulent drainage. Throat without erythema, tonsillar hypertrophy or exudate. Airway patent. NECK: Trachea midline. Non tender CARDIOVASCULAR: Regular rate and rhythm without murmurs, gallops, or rubs. RESPIRATORY: Patient is able to speak in full sentences. No significant increased work of breathing noted. Air entry. Slightly diminished in the bilateral lower lobes of the lungs auscultation. GASTROINTESTINAL: Abdomen soft, non-tender, nondistended. EXTREMITIES: No edema or joint tenderness. BACK: Nontender without deformity or crepitance. No flank tenderness. NEURO: AOx3. SKIN: No rash or erythema of visible areas Initial Vital Signs Initial Vital Signs: Vital Signs Temperature 98.7 F 08/05/21 10:50 Pulse Rate 96 H 08/05/21 10:50 Respiratory Rate 28 H 08/05/21 10:50 Blood Pressure 116/67 08/05/21 10:50 Pulse Oximetry 99 08/05/21 10:50 <Elizabeth Sol DO - Last Filed: 08/06/21 07:14> Initial Vital Signs Initial Vital Signs: Vital Signs Temperature 98.7 F 08/05/21 10:50 Pulse Rate 96 H 08/05/21 10:50 Respiratory Rate 28 H 08/05/21 10:50 Blood Pressure 116/67 08/05/21 10:50 Pulse Oximetry 99 08/05/21 10:50 Course <Papo Duggan PA-C - Last Filed: 08/05/21 19:39> Course Course Narrative: Patient's called in and states that the patient's shortness of breath and overall state has been worsening since he was discharged from the hospital on 07/25/2021. CBC, CMP, troponin, lipase, magnesium, BNP, chest x-ray, EKG obtained. 80 mg of Lasix administered, however patient states that his shortness of breath is increasing worsening. Checked in with patient again after patient was checked for ambulatory pulse oximetry. Patient states he feels that his breathing has improved and feels comfortable being discharged home. Orders Ordered: Discontinued Medications Furosemide (Furosemide 40 Mg Tablet) 80 mg PO NOW ONE Stop: 08/05/21 12:30 Last Admin: 08/05/21 12:44 Dose: 80 mg Documented by: KAI Vital Signs Vital signs: Vital Signs - 8 hr 08/05/21 12:00 08/05/21 12:30 08/05/21 13:00 Pulse Rate 91 H 90 91 H Respiratory Rate 25 H 20 14 Blood Pressure 102/68 109/72 118/82 Pulse Oximetry 99 98 97 08/05/21 13:30 08/05/21 14:00 08/05/21 14:02 Pulse Rate 90 90 90 Respiratory Rate 31 H 30 H 32 H Blood Pressure 98/70 104/73 Pulse Oximetry 97 98 97 08/05/21 14:36 08/05/21 15:00 08/05/21 15:30 Pulse Rate 93 H 92 H 91 H Respiratory Rate 24 29 H Blood Pressure 105/71 108/74 Pulse Oximetry 71 L 100 98 08/05/21 15:52 08/05/21 16:00 08/05/21 16:01 Pulse Rate 94 H 91 H 91 H Respiratory Rate 29 H 32 H 32 H Blood Pressure 113/69 Pulse Oximetry 95 97 99 08/05/21 16:30 08/05/21 16:31 Pulse Rate 93 H 93 H Respiratory Rate 35 H 30 H Blood Pressure 107/71 Pulse Oximetry 99 99 <Elizabeth Sol, - Last Filed: 08/06/21 07:14> Orders Ordered: Discontinued Medications Furosemide (Furosemide 40 Mg Tablet) 80 mg PO NOW ONE Stop: 08/05/21 12:30 Last Admin: 08/05/21 12:44 Dose: 80 mg Documented by: KAI Vital Signs Vital signs: Vital Signs - 8 hr 08/05/21 12:00 08/05/21 12:30 08/05/21 13:00 Pulse Rate 91 H 90 91 H Respiratory Rate 25 H 20 14 Blood Pressure 102/68 109/72 118/82 Pulse Oximetry 99 98 97 08/05/21 13:30 08/05/21 14:00 08/05/21 14:02 Pulse Rate 90 90 90 Respiratory Rate 31 H 30 H 32 H Blood Pressure 98/70 104/73 Pulse Oximetry 97 98 97 08/05/21 14:36 08/05/21 15:00 08/05/21 15:30 Pulse Rate 93 H 92 H 91 H Respiratory Rate 24 29 H Blood Pressure 105/71 108/74 Pulse Oximetry 71 L 100 98 08/05/21 15:52 08/05/21 16:00 08/05/21 16:01 Pulse Rate 94 H 91 H 91 H Respiratory Rate 29 H 32 H 32 H Blood Pressure 113/69 Pulse Oximetry 95 97 99 08/05/21 16:30 08/05/21 16:31 Pulse Rate 93 H 93 H Respiratory Rate 35 H 30 H Blood Pressure 107/71 Pulse Oximetry 99 99 MDM - SOB/Dyspnea <Papo Dgugan PA-C - Last Filed: 08/05/21 19:39> Lab Data Result diagrams: 08/05/21 11:00 08/05/21 11:00 Labs: Lab Results 08/05/21 08/05/21 08/05/21 Range/Units 11:00 11:00 11:00 WBC 7.2 (4.5-11.0) X10^3/uL RBC 4.78 (4.5-5.9) X10^6/uL Hgb 12.4 L (13.5-17.5) g/dL Hct 38.8 L (41-53) % MCV 81.3 (80-100) fL MCH 26.0 (26-34) PG MCHC 32.0 (30-36) % RDW 17.5 H (11.6-14.8) % Plt Count 137 L (150-400) X10^3/uL Neut % (Auto) 81.6 H (50-75) % Lymph % (Auto) 10.1 L (25-40) % Maverick % (Auto) 6.5 (3-14) % Eos % (Auto) 1.0 L (2-4) % Baso % (Auto) 0.8 (0-2) % Neut # (Auto) 5900 (3962-7772) /uL Lymph # (Auto) 700 L (3501-5226) /uL Maverick # (Auto) 500 (0-900) /uL Eos # (Auto) 100 (0-450) /uL Baso # (Auto) 100 (0-100) /uL Sodium 137 (137-145) mmol/L Potassium 4.9 (3.4-5.1) mmol/L Chloride 106 (98-107) mmol/L Carbon Dioxide 27 (22-32) mmol/L BUN 30 H (9-20) mg/dL Creatinine 1.66 H (0.66-1.25) mg/dL Estimated GFR 40.8 L (>60) mL/min BUN/Creatinine Ratio 18.1 (6-22) Glucose 301 H (80-110) mg/dL Calcium 8.8 (8.4-10.2) mg/dL Magnesium 2.0 (1.6-2.3) mg/dL Total Bilirubin 1.1 (0.2-1.3) mg/dL AST 26 (17-59) IU/L ALT 17 (<50) IU/L Alkaline Phosphatase 153 H (38-126) U/L Total Creatine Kinase 68 (55-170) U/L CK-MB (CK-2) TNP CK-MB (CK-2) Rel Index TNP Troponin I 0.032 (0.01-0.034) ng/mL NT-Pro-B Natriuret Pep 63372 H (<125) pg/mL Total Protein 6.6 (6.3-8.2) g/dL Albumin 3.5 (3.5-5.0) g/dL Globulin 3.1 (1.7-4.1) g/dL Albumin/Globulin Ratio 1.1 (1.0-2.8) Lipase 615 H (23-300) U/L Imaging Data Chest x-ray: Radiologist's Impression: PROCEDURE:? XR CHEST 1V ? INDICATIONS:? chest pain ? TECHNIQUE:? One view of the chest was acquired.? ? COMPARISON:? [facility], , XR CHEST 1V, 07/23/2021, 16:35. ? FINDINGS:? ? Surgical changes and devices:? Sternal wires are present. ? Lungs and pleura:? Increased interstitial markings are present.? No pleural effusions or pneumothorax.? ? Mediastinum:? Mediastinal contours appear normal.? Heart size is markedly enlarged. ? Bones and chest wall:? No suspicious bony lesions.? Overlying soft tissues appear unremarkable.? ? IMPRESSION:? Increased interstitial markings possibly related to poor inspiratory effort. ?However, edema cannot be excluded. ? ? Dictated by: Lo Ware M.D. on 08/05/2021 at 11:28 ? ? Approved by: Lo Ware M.D. on 08/05/2021 at 11:29 CT scan - chest: Radiologist's Impression: PROCEDURE:? CT ANGIO CHEST PE PROTOCOL ? INDICATIONS:? Shortness of breath ? TECHNIQUE:? After the administration of intravenous contrast, 2 mm thick sections acquired from the pulmonary apices to the posterior costophrenic angles.? 3-dimensional maximum intensity projection (MIP) coronal and sagittal reformats were then acquired through the thorax.? For radiation dose reduction, the following was used:? automated exposure control, adjustment of mA and/or kV according to patient size.? ? COMPARISON:? [facility], CT, CT ANGIO CHEST PE PROTOCOL, 12/25/2020, 14:53.? [facility], CT, CT ANGIO CHEST PE PROTOCOL, 07/06/2021, 11:37.? [facility], CT, CT ANGIO CHEST PE PROTOCOL, 07/23/2021, 23:01. ? FINDINGS:? Image quality:? Excellent.? ? Pulmonary arteries:? Pulmonary arteries are normal in size, and demonstrate no intraluminal filling defects to suggest central pulmonary embolism.? ? Lungs and pleura:? There is a irregular nodular density in the right upper lobe medially measuring 1.3 x 1.6 cm. 1 multiple nodules are also noted in right middle lobe.? The nodules are overall unchanged in size compared to 07/23/2021.? There is a small right? pleural effusion.? No pneumothorax.? Central and peripheral airways are patent.? ? Mediastinum:? Heart size is mildly enlarged.? Moderate coronary artery calcification.? Sternotomy and CABG.? No pericardial effusion.? ? Mild mediastinal and bilateral hilar adenopathy.? There is a 1.3 x 1.8 cm subcarinal lymph node.? A 1.4 cm right paratracheal lymph node is identified.? There is a 1 cm left hilar lymph node.? Calcified lymph nodes are noted in right hilum and subcarinal area.? Thoracic aorta is normal in caliber and enhancement.? Esophagus is normal in caliber, without hiatal hernia.? ? Bones and chest wall:? No suspicious bony lesions.? Ribs and thoracic spine appear intact throughout.? Thyroid gland is normal.? No axillary or supraclavicular adenopathy.? ? Abdomen:? Small amount of ascites around the liver and spleen.? Liver demonstrates nodular contour.? ? IMPRESSION:? ? 1. No evidence for pulmonary embolism. 2. Irregular nodular densities in the right upper lobe and right middle lobe.? Differential diagnoses include inflammatory nodules, infectious etiology and neoplasm. 3. Small right pleural effusion. 4. Mild mediastinal and bilateral lymphadenopathy, nonspecific. 5. Mild cardiomegaly.? There is moderate coronary artery calcification and postsurgical changes related to CABG. 6. Small amount of ascites. 7. Nodular contour of liver suggesting cirrhosis.? ? ? Dictated by: Frank Johnston M.D. on 08/05/2021 at 15:00 ? ? Approved by: Frank Johnston M.D. on 08/05/2021 at 15:20 ? MDM Narrative Medical decision making narrative: To consider COVID-19 versus viral upper respiratory infection versus pneumonia versus atelectasis versus congestive heart failure exacerbation versus pulmonary embolism. Overall physical examination, history, lab work, and imaging obtained in the emergency department today returned reassuring. No signs of pulmonary embolism are identified on imaging. Additionally, patient states he is feeling better after Lasix administered. Patient states that this time he feels comfortable being discharged home. I urged the patient to follow up with primary care provider and I mentioned that I would refer him to a casserole preparer. Patient expresses understanding and agrees to plan. Strict return precautions were discussed with the patient prior to discharge. At this time patient is stable and ready for discharge. <Elizabeth Sol, DO - Last Filed: 08/06/21 07:14> Lab Data Labs: Lab Results 08/05/21 08/05/21 08/05/21 Range/Units 11:00 11:00 11:00 WBC 7.2 (4.5-11.0) X10^3/uL RBC 4.78 (4.5-5.9) X10^6/uL Hgb 12.4 L (13.5-17.5) g/dL Hct 38.8 L (41-53) % MCV 81.3 (80-100) fL MCH 26.0 (26-34) PG MCHC 32.0 (30-36) % RDW 17.5 H (11.6-14.8) % Plt Count 137 L (150-400) X10^3/uL Neut % (Auto) 81.6 H (50-75) % Lymph % (Auto) 10.1 L (25-40) % Maverick % (Auto) 6.5 (3-14) % Eos % (Auto) 1.0 L (2-4) % Baso % (Auto) 0.8 (0-2) % Neut # (Auto) 5900 (8005-3357) /uL Lymph # (Auto) 700 L (8082-1808) /uL Maverick # (Auto) 500 (0-900) /uL Eos # (Auto) 100 (0-450) /uL Baso # (Auto) 100 (0-100) /uL Sodium 137 (137-145) mmol/L Potassium 4.9 (3.4-5.1) mmol/L Chloride 106 (98-107) mmol/L Carbon Dioxide 27 (22-32) mmol/L BUN 30 H (9-20) mg/dL Creatinine 1.66 H (0.66-1.25) mg/dL Estimated GFR 40.8 L (>60) mL/min BUN/Creatinine Ratio 18.1 (6-22) Glucose 301 H (80-110) mg/dL Calcium 8.8 (8.4-10.2) mg/dL Magnesium 2.0 (1.6-2.3) mg/dL Total Bilirubin 1.1 (0.2-1.3) mg/dL AST 26 (17-59) IU/L ALT 17 (<50) IU/L Alkaline Phosphatase 153 H (38-126) U/L Total Creatine Kinase 68 (55-170) U/L CK-MB (CK-2) TNP CK-MB (CK-2) Rel Index TNP Troponin I 0.032 (0.01-0.034) ng/mL NT-Pro-B Natriuret Pep 82844 H (<125) pg/mL Total Protein 6.6 (6.3-8.2) g/dL Albumin 3.5 (3.5-5.0) g/dL Globulin 3.1 (1.7-4.1) g/dL Albumin/Globulin Ratio 1.1 (1.0-2.8) Lipase 615 H (23-300) U/L ECG Data Interpretation: malaika: Normal sinus rhythm rate 95 DE interval 172 QRS [address] changes PVCs noted similar to previous EKG right bundle branch noted Discharge Plan Departure Patient Disposition: Home Clinical Impression: CHF exacerbation, COVID-19 Instructions: DI for COVID-19 (Suspected or Confirmed ) Activity Restrictions/Additional Instructions: *You have been diagnosed with CHF exacerbation, COVID-19 *What to do: *Please continue to take your regular medications as directed. [X] New medication prescriptions sent to your pharmacy: [facility] - Lasix [ ] New medication written as a paper prescription [ ] No new medications given I have sent a prescription for 80 mg tablets of Lasix to your preferred pharmacy. I recommend taking this medication twice daily. Additionally, I recommend following up with the primary care provider within the next 2-3 days for further evaluation. I have referred you to a casserole preparer in the area, Dr. Joyce. I feel that it is best to have a casserole preparer evaluate you based off of your cardiac history. Do not hesitate to return to the emergency department if you experience worsening shortness of breath, worsening cough, chest pain, or any other concerning symptoms. *Please follow up with your primary care provider in 2-3 days, call for an appointment. Let them know you were seen in the Emergency Department and that we ask that you be seen in follow up. We will electronically transmit a record of today's note if your PCP is in our system *If you do not have a primary care provider please contact the [facility] Resource line at [phone]. They will ask some questions about your medical history and help get you set up with a doctor in the community. *Return to Emergency Department if you should have any new, worsening or concerning symptoms, such as [fever greater than 101 F, shaking chills, worsening pain, persistent vomiting or other bothersome symptoms] Prescriptions: New furosemide [Lasix] 80 mg tablet 80 mg PO BID Qty: 30 0RF No Action furosemide 40 mg Tablet 40 mg PO BID Qty: 60 0RF atorvastatin 40 mg tablet 40 mg PO BEDTIME Qty: 30 0RF (DME) needle (disp) 30 gauge 30 gauge x 1/2 needle See Rx Instructions .ROUTE .MEDSUPPLY Qty: 100 0RF Rx Instructions: As directed insulin detemir U-100 100 unit/mL (3 mL) insulin pen 40 unit SUBCUT BEDTIME 0RF lisinopril 2.5 mg tablet 2.5 mg PO DAILY Qty: 30 0RF spironolactone 25 mg tablet 12.5 mg PO DAILY Qty: 30 0RF carvedilol [Coreg] 3.125 mg tablet 3.125 mg PO Q12H Qty: 60 0RF Rx Instructions: must administer with a meal/food Referrals: Zeina Cano MD [Primary Care Provider] - Simon Joyce MD [Physician] - As soon as possible <Elizabeth Sol DO - Last Filed: 08/06/21 07:14> Cosign ED Attending Carolature Attestation: I was immediately available in the department for consultation. Documentation has been reviewed. I agree with assessment and plan.
--- NOTE | 2021-08-05 13:28 | PC.NURSE ---
Pt rang c/o increased shortness of breath at rest. Noted sats 95-100%. BS decreased / bibasilar rales as per previous exam. Papo SMITH and primary rn made aware
--- NOTE | 2021-08-05 13:51 | DI.CT.S_ITS ---
PROCEDURE: CT ANGIO CHEST PE PROTOCOL INDICATIONS: Shortness of breath TECHNIQUE: After the administration of intravenous contrast, 2 mm thick sections acquired from the pulmonary apices to the posterior costophrenic angles. 3-dimensional maximum intensity projection (MIP) coronal and sagittal reformats were then acquired through the thorax. For radiation dose reduction, the following was used: automated exposure control, adjustment of mA and/or kV according to patient size. COMPARISON: [facility], CT, CT ANGIO CHEST PE PROTOCOL, 12/25/2020, 14:53. [facility], CT, CT ANGIO CHEST PE PROTOCOL, 07/06/2021, 11:37. [facility], CT, CT ANGIO CHEST PE PROTOCOL, 07/23/2021, 23:01. FINDINGS: Image quality: Excellent. Pulmonary arteries: Pulmonary arteries are normal in size, and demonstrate no intraluminal filling defects to suggest central pulmonary embolism. Lungs and pleura: There is a irregular nodular density in the right upper lobe medially measuring 1.3 x 1.6 cm. 1 multiple nodules are also noted in right middle lobe. The nodules are overall unchanged in size compared to 07/23/2021. There is a small right pleural effusion. No pneumothorax. Central and peripheral airways are patent. Mediastinum: Heart size is mildly enlarged. Moderate coronary artery calcification. Sternotomy and CABG. No pericardial effusion. Mild mediastinal and bilateral hilar adenopathy. There is a 1.3 x 1.8 cm subcarinal lymph node. A 1.4 cm right paratracheal lymph node is identified. There is a 1 cm left hilar lymph node. Calcified lymph nodes are noted in right hilum and subcarinal area. Thoracic aorta is normal in caliber and enhancement. Esophagus is normal in caliber, without hiatal hernia. Bones and chest wall: No suspicious bony lesions. Ribs and thoracic spine appear intact throughout. Thyroid gland is normal. No axillary or supraclavicular adenopathy. Abdomen: Small amount of ascites around the liver and spleen. Liver demonstrates nodular contour. IMPRESSION: 1. No evidence for pulmonary embolism. 2. Irregular nodular densities in the right upper lobe and right middle lobe. Differential diagnoses include inflammatory nodules, infectious etiology and neoplasm. 3. Small right pleural effusion. 4. Mild mediastinal and bilateral lymphadenopathy, nonspecific. 5. Mild cardiomegaly. There is moderate coronary artery calcification and postsurgical changes related to CABG. 6. Small amount of ascites. 7. Nodular contour of liver suggesting cirrhosis. Dictated by: Frank Johnston M.D. on 08/05/2021 at 15:00 Approved by: Frank Johnston M.D. on 08/05/2021 at 15:20
== END 2021-08-05 17:36 | disposition home or self-care (01) ==
PROVIDERS: Emergency Medicine; Emergency Provider Physician Assistant; PCP Family Medicine
DX: I50.9 Heart failure, unspecified (principal); U07.1 COVID-19; I49.3 Ventricular premature depolarization
CPT/HCPCS: 36415; 71045; 71275; 80053; 82550; 83690; 83735; 83880; 84484; 85025; 93005; 99284; 99285; Q9967

== ENCOUNTER 2021-10-13 09:28 | Emergency (ER) | payer MEDICARE, OTHER, SELFPAY ==
[2021-07-23 23:30] VITALS: BMI 33.3
[2021-10-13] VITALS (13 sets, daily range): BP systolic 127–134; BP diastolic 80–87; PULSE 113–119; RESP 19–26; O2SAT 96–100; BMI 33.6
--- NOTE | 2021-10-13 09:45 | DI.RAD.S_ITS ---
PROCEDURE: XR CHEST 1V INDICATIONS: shortness of breath TECHNIQUE: One view of the chest was acquired. COMPARISON: [facility], CT, CT ANGIO CHEST PE PROTOCOL, 08/05/2021, 14:29. [facility], CR, XR CHEST 1V, 07/23/2021, 16:35. [facility], CR, XR CHEST 1V, 08/05/2021, 11:04. FINDINGS: Surgical changes and devices: Median sternotomy changes. Lungs and pleura: Lungs are clear. No pleural effusions or pneumothorax. Mediastinum: Mediastinal contours appear normal. Heart size is enlarged. Bones and chest wall: No suspicious bony lesions. Overlying soft tissues appear unremarkable. IMPRESSION: No acute cardiopulmonary process demonstrated radiographically. Cardiomegaly. Dictated by: Efrain Rodriguez M.D. on 10/13/2021 at 10:40 Approved by: Efrain Rodriguez M.D. on 10/13/2021 at 10:41
[2021-10-13 09:59] LABS: Add Manual Diff / Slide Review NO; Basophils Absolute Auto 100 /uL (0-100); Basophils Percent Auto 0.7 % (0-2); Eosinophils Absolute Auto 0 /uL (0-450); Eosinophils Percent Auto 0.3 % (2-4); Hematocrit 40.1 % (41-53); Hemoglobin 13.4 g/dL (13.5-17.5); Lymphocytes Absolute Auto 1200 /uL (1100-4500); Lymphocytes Percent Auto 12.8 % (25-40); Mean Corpuscular HGB Conc 33.4 % (30-36); Mean Corpuscular Hemoglobin 27.1 PG (26-34); Monocytes Absolute Auto 600 /uL (0-900); Monocytes Percent Auto 6.7 % (3-14); Neutrophils Absolute Auto 7400 /uL (1500-7000); Neutrophils Percent Auto 79.5 % (50-75); Platelet Count 203 X10^3/uL (150-400); Red Blood Cell Count 4.96 X10^6/uL (4.5-5.9); Red Cell Distribution Width 18.4 % (11.6-14.8); White Blood Cell Count 9.4 X10^3/uL (4.5-11.0)
--- NOTE | 2021-10-13 10:06 | ED.SOB ---
HPI - SOB/Dyspnea General Chief Complaint: Shortness of Breath/Dyspnea Stated Complaint: Short of Breath Time Seen by Provider: 10/13/21 09:53 Source: patient and EMS Mode of arrival: EMS Limitations: no limitations History of Present Illness HPI Narrative: This is a 75-year-old male who comes to the emergency department with complaint of shortness of breath. Patient states that he has had increasing shortness of breath for the last several days. He ran out of his medications about a week and a half ago. He has ordered his pills but they were unable to pick them up yesterday and her hopefully going patent able to pick them up tomorrow his pharmacy is closed today. Patient starts she really noticed symptoms last which was October 10. He overnight he had trouble sleeping he found he slept best lying on his right side. Denies fevers or chills, no cold cough or congestion. He has some orthopnea but finds that he can lie flat on his right side without much issue. Denies any chest pain or pressure. Had 1 episode of emesis this morning which was watery. He denies any abdominal pain. He denies any swelling that is new in his extremities or abdomen. 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 He is unsure if his daily medications but does know he takes a water pill, he has diabetes and appears to be on insulin, he takes Lasix, spironolactone, lisinopril, Coreg, atorvastatin and insulin. He denies any allergies. He denies any surgeries besides his CABG. No known drug allergies. His primary care is Dr. [facility] Patient did have positive COVID test on July of 2021. He is also noted to have some nodular irregularities on the right long, right small pleural effusion and some mediastinal and bilateral lymphadenopathy and mild cardiomegaly with calcification and small amount of ascites with cirrhotic changes on his CT angiography from July of 2021. Related Data Home Medications Medication Instructions Recorded Confirmed insulin detemir U-100 100 unit/mL 40 unit SUBCUT BEDTIME 07/24/21 07/24/21 (3 mL) subcutaneous pen Previous Rx's Medication Instructions Recorded atorvastatin 40 mg tablet 40 mg PO BEDTIME #30 tab 12/27/20 furosemide 40 mg tablet 40 mg PO BID #60 tab 12/27/20 carvedilol 3.125 mg tablet (Coreg) 3.125 mg PO Q12H #60 tab 07/25/21 lisinopril 2.5 mg tablet 2.5 mg PO DAILY #30 tab 07/25/21 spironolactone 25 mg tablet 12.5 mg PO DAILY #30 tab 07/25/21 furosemide 80 mg tablet (Lasix) 80 mg PO BID #30 tab 08/05/21 furosemide 40 mg tablet (Lasix) 40 mg PO DAILY #5 tab 10/13/21 needle (disp) 30 gauge 30 gauge x #100 ea 10/13/21 1 Allergies Allergy/AdvReac Type Severity Reaction Status Date / Time No Known Drug Allergies Allergy Verified 12/25/20 10:24 Review of Systems Review of Systems ROS Unobtainable: All systems reviewed & are unremarkable except as noted in HPI and below Patient History Medical History CKD stage 3 due to type 2 diabetes mellitus Coronary artery disease due to type 2 diabetes mellitus Essential hypertension Hyperlipidemia associated with type 2 diabetes mellitus Systolic congestive heart failure Surgical History Hx of sternectomy S/P CABG x 4 Family History Mother Congestive heart failure Father Heart attack Social History household members: spouse Smoking Status: Never smoker Smoking Status: Never smoker alcohol intake frequency: holidays/special occasions only Substance Use Type: does not use Exam Narrative Exam Narrative: GEN: well nourished, well appearing male, alert and oriented x 3, patient appears to be in [id number] distress. HEENT: Atraumatic, pupils are equal round reactive to light, extraocular movements are intact, nares are clear, there is no conjunctival pallor. Throat is clear without any exudates, erythema, tonsillar enlargement or uvular deviation HEART: Regular rate and rhythm without murmur, clicks, rubs. Pulses are equal in upper extremities. No swelling bilateral lower extremities. LUNGS:Lungs clear to auscultation, no wheezes, rales, crackles, chest moves symmetrically, patient has tachypnea but no other accessory muscle use appreciated. Patient is able to speak in 4-5 word sentences. ABD:bowel sounds normal, soft, non-tender, no guarding, rebound, rigidity, no masses noted, no hepatosplenomegaly :No CVA tenderness, MSCL: Non-tender, no muscle atrophy, muscles strength 5/5 upper and lower extremities, full range of motion NEURO:CN 2-12 intact, sensation normal SKIN: No rash, erythema or other skin changes noted. Initial Vital Signs Initial Vital Signs: Vital Signs Pulse Rate 114 H 10/13/21 09:35 Respiratory Rate 19 10/13/21 09:35 Blood Pressure 134/81 10/13/21 09:35 Pulse Oximetry 100 10/13/21 09:35 Course Orders Ordered: ED Orders 10/13/21 09:41 Complete Blood Count AUTO DIFF Stat Comprehensive Metabolic Panel Stat Lactate (Lactic Acid) Stat 10/13/21 09:45 XR chest 1V Stat D Dimer Stat EKG-12 Lead Stat RT Consult Eval and Treat Now 10/13/21 10:00 BNP [NT-proBNP (BNP-Adult 18+)] Stat Troponin & CK Cardiac Panel Stat 10/13/21 10:40 CT angio chest PE protocol Stat US abdomen limited Stat 10/13/21 11:09 Urinalysis and Microscopic Stat Discontinued Medications Atorvastatin Calcium (Atorvastatin 20 Mg Tablet) 40 mg PO NOW ONE Stop: 10/13/21 13:03 Last Admin: 10/13/21 13:26 Dose: 40 mg Documented by: SABRINA Carvedilol (Carvedilol 3.125 Mg Tablet) 3.125 mg PO NOW ONE Stop: 10/13/21 12:01 Last Admin: 10/13/21 12:09 Dose: 3.125 mg Documented by: SABRINA Furosemide (Furosemide 40 Mg/4 Ml Vial) 40 mg IV NOW ONE Stop: 10/13/21 10:14 Last Admin: 10/13/21 10:18 Dose: 40 mg Documented by: SABRINA Lisinopril (Lisinopril 5 Mg Tablet) 2.5 mg PO NOW ONE Stop: 10/13/21 13:03 Last Admin: 10/13/21 13:29 Dose: 2.5 mg Documented by: SABRINA Ondansetron HCl (Ondansetron 4 Mg/2 Ml Inj) 4 mg IV NOW ONE Stop: 10/13/21 11:24 Ondansetron HCl (Ondansetron 4 Mg Odt) 4 mg SL NOW ONE Stop: 10/13/21 12:00 Last Admin: 10/13/21 12:10 Dose: 4 mg Documented by: SABRINA Spironolactone (Spironolactone 25 Mg Tablet) 12.5 mg PO NOW ONE Stop: 10/13/21 13:03 Last Admin: 10/13/21 13:27 Dose: 12.5 mg Documented by: SABRINA Reevaluation(s) Reevaluation #1: Patient is feeling improved after Lasix and some diuresis. Reviewed his findings CT angiography an abdominal ultrasound ordered because of elevated D-dimer and persistent tachycardia as well as elevated LFTs. Patient is agreeable to this plan. Reevaluation #2: Reviewed patient's CT angio does not show any PE there is pleural effusion which does not appear enlarged. He still slightly tachycardic but states he feels much better. Also reviewed his findings on ultrasound and need for follow-up. Patient would like to return home. 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 He states he takes them just once a day so his daily medications were given. He does have insulin at home. He does request a prescription for needles for his insulin and we discussed adding a short course of additional Lasix to add to his regular medications. Return precautions were discussed. Vital Signs Vital signs: Vital Signs - 8 hr 10/13/21 10:30 10/13/21 11:02 10/13/21 11:09 Pulse Rate 114 H 114 H 113 H Respiratory Rate 24 22 Blood Pressure 130/83 Pulse Oximetry 98 98 10/13/21 11:30 10/13/21 12:00 10/13/21 12:09 Pulse Rate 113 H 115 H 113 H Respiratory Rate 22 21 Blood Pressure 130/83 Pulse Oximetry 98 96 10/13/21 12:30 10/13/21 13:00 10/13/21 13:29 Pulse Rate 116 H 114 H 116 H Respiratory Rate 21 22 Blood Pressure 130/83 Pulse Oximetry 97 97 10/13/21 13:30 10/13/21 13:42 Pulse Rate 119 H 118 H Respiratory Rate 21 20 Blood Pressure 130/80 Pulse Oximetry 97 98 MDM - SOB/Dyspnea Lab Data Result diagrams: 10/13/21 09:41 10/13/21 09:41 Labs: Lab Results 10/13/21 10/13/21 10/13/21 Range/Units 09:41 09:41 09:41 WBC 9.4 (4.5-11.0) X10^3/uL RBC 4.96 (4.5-5.9) X10^6/uL Hgb 13.4 L (13.5-17.5) g/dL Hct 40.1 L (41-53) % MCV 81.0 (80-100) fL MCH 27.1 (26-34) PG MCHC 33.4 (30-36) % RDW 18.4 H (11.6-14.8) % Plt Count 203 (150-400) X10^3/uL Neut % (Auto) 79.5 H (50-75) % Lymph % (Auto) 12.8 L (25-40) % [place] % (Auto) 6.7 (3-14) % Eos % (Auto) 0.3 L (2-4) % Baso % (Auto) 0.7 (0-2) % Neut # (Auto) 7400 H (0747-6659) /uL Lymph # (Auto) 1200 (2678-5720) /uL [place] # (Auto) 600 (0-900) /uL Eos # (Auto) 0 (0-450) /uL Baso # (Auto) 100 (0-100) /uL D-Dimer (<230) ng/mL Sodium 134 L (137-145) mmol/L Potassium 5.1 (3.4-5.1) mmol/L Chloride 105 (98-107) mmol/L Carbon Dioxide 21 L (22-32) mmol/L BUN 24 H (9-20) mg/dL Creatinine 1.51 H (0.66-1.25) mg/dL Estimated GFR 45.5 L (>60) mL/min BUN/Creatinine Ratio 15.9 (6-22) Glucose 239 H (80-110) mg/dL Lactate 2.9 H (0.7-2.1) mmol/L Calcium 8.7 (8.4-10.2) mg/dL Total Bilirubin 1.9 H (0.2-1.3) mg/dL AST 298 H (17-59) IU/L ALT 229 H (<50) IU/L Alkaline Phosphatase 178 H (38-126) U/L Total Creatine Kinase (55-170) U/L CK-MB (CK-2) CK-MB (CK-2) Rel Index Troponin I (0.01-0.034) ng/mL NT-Pro-B Natriuret Pep (<125) pg/mL Total Protein 8.0 (6.3-8.2) g/dL Albumin 4.0 (3.5-5.0) g/dL Globulin 4.0 (1.7-4.1) g/dL Albumin/Globulin Ratio 1.0 (1.0-2.8) Urine Color Urine Appearance Urine pH (4.5-8.0) Ur Specific [place] (1.000-1.035) Urine Protein (Negative) Urine Glucose (UA) (Negative) g/dL Urine Ketones (NEGATIVE) Urine Occult Blood (Negative) Urine Nitrate (Negative) Urine Bilirubin (NEGATIVE) Urine Urobilinogen (0.2) E.U./dL Ur Leukocyte Esterase (NEGATIVE) Urine RBC (0-5/HPF) Urine WBC (0-5/HPF) Ur Squamous Epith Cells (0-5/HPF) Amorphous Sediment Urine Bacteria (None) Hyaline Casts (None) Granular Casts (None) Urine Mucus (Negative) Ur Culture Indicated? 10/13/21 10/13/21 10/13/21 Range/Units 09:45 10:00 11:09 WBC (4.5-11.0) X10^3/uL RBC (4.5-5.9) X10^6/uL Hgb (13.5-17.5) g/dL Hct (41-53) % MCV (80-100) fL MCH (26-34) PG MCHC (30-36) % RDW (11.6-14.8) % Plt Count (150-400) X10^3/uL Neut % (Auto) (50-75) % Lymph % (Auto) (25-40) % [place] % (Auto) (3-14) % Eos % (Auto) (2-4) % Baso % (Auto) (0-2) % Neut # (Auto) (8158-8031) /uL Lymph # (Auto) (4602-0504) /uL [place] # (Auto) (0-900) /uL Eos # (Auto) (0-450) /uL Baso # (Auto) (0-100) /uL D-Dimer 956 H (<230) ng/mL Sodium (137-145) mmol/L Potassium (3.4-5.1) mmol/L Chloride (98-107) mmol/L Carbon Dioxide (22-32) mmol/L BUN (9-20) mg/dL Creatinine (0.66-1.25) mg/dL Estimated GFR (>60) mL/min BUN/Creatinine Ratio (6-22) Glucose (80-110) mg/dL Lactate (0.7-2.1) mmol/L Calcium (8.4-10.2) mg/dL Total Bilirubin (0.2-1.3) mg/dL AST (17-59) IU/L ALT (<50) IU/L Alkaline Phosphatase (38-126) U/L Total Creatine Kinase 67 (55-170) U/L CK-MB (CK-2) TNP CK-MB (CK-2) Rel Index TNP Troponin I 0.027 (0.01-0.034) ng/mL NT-Pro-B Natriuret Pep 22465 H (<125) pg/mL Total Protein (6.3-8.2) g/dL Albumin (3.5-5.0) g/dL Globulin (1.7-4.1) g/dL Albumin/Globulin Ratio (1.0-2.8) Urine Color Yellow Urine Appearance Clear Urine pH 5.0 (4.5-8.0) Ur Specific [place] 1.025 (1.000-1.035) Urine Protein 3+ H (Negative) Urine Glucose (UA) Trace H (Negative) g/dL Urine Ketones Negative (NEGATIVE) Urine Occult Blood 1+ H (Negative) Urine Nitrate Negative (Negative) Urine Bilirubin Negative (NEGATIVE) Urine Urobilinogen 0.2 (0.2) E.U./dL Ur Leukocyte Esterase Negative (NEGATIVE) Urine RBC 5-10/hpf H (0-5/HPF) Urine WBC 1-5/hpf (0-5/HPF) Ur Squamous Epith Cells 0-1 /hpf (0-5/HPF) Amorphous Sediment 1+ Urine Bacteria Few (2-10) H (None) Hyaline Casts 10-30/lpf (None) Granular Casts 5-10/lpf (None) Urine Mucus 1+ H (Negative) Ur Culture Indicated? Cult not indicated 10/13/21 Range/Units 11:56 WBC (4.5-11.0) X10^3/uL RBC (4.5-5.9) X10^6/uL Hgb (13.5-17.5) g/dL Hct (41-53) % MCV (80-100) fL MCH (26-34) PG MCHC (30-36) % RDW (11.6-14.8) % Plt Count (150-400) X10^3/uL Neut % (Auto) (50-75) % Lymph % (Auto) (25-40) % [place] % (Auto) (3-14) % Eos % (Auto) (2-4) % Baso % (Auto) (0-2) % Neut # (Auto) (6343-0057) /uL Lymph # (Auto) (8848-0464) /uL [place] # (Auto) (0-900) /uL Eos # (Auto) (0-450) /uL Baso # (Auto) (0-100) /uL D-Dimer (<230) ng/mL Sodium (137-145) mmol/L Potassium (3.4-5.1) mmol/L Chloride (98-107) mmol/L Carbon Dioxide (22-32) mmol/L BUN (9-20) mg/dL Creatinine (0.66-1.25) mg/dL Estimated GFR (>60) mL/min BUN/Creatinine Ratio (6-22) Glucose (80-110) mg/dL Lactate 2.4 H (0.7-2.1) mmol/L Calcium (8.4-10.2) mg/dL Total Bilirubin (0.2-1.3) mg/dL AST (17-59) IU/L ALT (<50) IU/L Alkaline Phosphatase (38-126) U/L Total Creatine Kinase (55-170) U/L CK-MB (CK-2) CK-MB (CK-2) Rel Index Troponin I (0.01-0.034) ng/mL NT-Pro-B Natriuret Pep (<125) pg/mL Total Protein (6.3-8.2) g/dL Albumin (3.5-5.0) g/dL Globulin (1.7-4.1) g/dL Albumin/Globulin Ratio (1.0-2.8) Urine Color Urine Appearance Urine pH (4.5-8.0) Ur Specific [place] (1.000-1.035) Urine Protein (Negative) Urine Glucose (UA) (Negative) g/dL Urine Ketones (NEGATIVE) Urine Occult Blood (Negative) Urine Nitrate (Negative) Urine Bilirubin (NEGATIVE) Urine Urobilinogen (0.2) E.U./dL Ur Leukocyte Esterase (NEGATIVE) Urine RBC (0-5/HPF) Urine WBC (0-5/HPF) Ur Squamous Epith Cells (0-5/HPF) Amorphous Sediment Urine Bacteria (None) Hyaline Casts (None) Granular Casts (None) Urine Mucus (Negative) Ur Culture Indicated? ECG Data Attestation: I personally reviewed and interpreted this ECG as follows: Interpretation: Sinus tachycardia with a rate of 113, IL 142 QRS of 138 QTC 529. 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 He has Q-waves in 3, RSR in V1 through V3. No acute ST changes are appreciated patient has prior EKG from 08/05/2021 with right bundle-branch block and similar appearing ST segments. [facility] Narrative Medical decision making narrative: This is a 75-year-old male with known history coronary artery disease on spironolactone and Lasix he has been out of his medications for week and half suspect CHF exacerbation he has tachypnea but no hypoxia with mild tachycardia. Patient does find that right lying on his right side is little bit easier to breathe. Patient has had a prior right pleural effusion as well as some nodular defend densities in lymphadenopathy concerning for possible neoplasm in July of 2021 as well as cardiomegaly and ascites with cirrhotic changes. Patient given a dose of Lasix. He had significant improvement of his symptoms. Patient continues to be somewhat tachycardic and with elevated D-dimer CT angiography was obtained still has some lymphadenopathy but seems less likely neoplastic. He continues to have a persistent pleural effusion but has not increased in size. Abdominal ultrasound does show cirrhotic changes and he is nontender and asked to follow up regarding his liver enzymes. Discharge Plan Departure Patient Disposition: Home Clinical Impression: CHF (congestive heart failure), CKD (chronic kidney disease), Pleural effusion on right Instructions: DI for Heart Failure Activity Restrictions/Additional Instructions: Your labs and imaging today reflect congestive heart failure likely secondary to not taking your medication regularly. Please feel your medications tomorrow with your pharmacist. If you have any difficulty filling these or needed prescription sent please call back I am working tomorrow and can help with this. Also follow-up with her physician your liver enzymes are elevated today, you have cirrhotic changes on your ultrasound. Your physician should follow up these labs to make sure they are improving. You have been sent an extra prescription for Lasix for several days to on extra tablet of lasix daily x 5 days in addition to your normal medication. Prescription sent to [facility] Please return for worsening chest pain, shortness of breath, lightheadedness or passing out, swelling of your abdomen or legs, persistent vomiting, fevers or other new or concerning symptoms. Prescriptions: New furosemide [Lasix] 40 mg tablet 40 mg PO DAILY Qty: 5 0RF Continued (DME) needle (disp) 30 gauge 30 gauge x 1/2 needle See Rx Instructions .ROUTE .MEDSUPPLY Qty: 100 0RF Rx Instructions: As directed No Action furosemide [Lasix] 80 mg tablet 80 mg PO BID Qty: 30 0RF furosemide 40 mg Tablet 40 mg PO BID Qty: 60 0RF atorvastatin 40 mg tablet 40 mg PO BEDTIME Qty: 30 0RF insulin detemir U-100 100 unit/mL (3 mL) insulin pen 40 unit SUBCUT BEDTIME 0RF lisinopril 2.5 mg tablet 2.5 mg PO DAILY Qty: 30 0RF spironolactone 25 mg tablet 12.5 mg PO DAILY Qty: 30 0RF carvedilol [Coreg] 3.125 mg tablet 3.125 mg PO Q12H Qty: 60 0RF Rx Instructions: must administer with a meal/food Referrals: Zeina Cano MD [Primary Care Provider] -
[2021-10-13 10:09] LABS: Alanine Aminotransferase 229 IU/L (<50); Alkaline Phosphatase 178 U/L (38-126); Aspartate Aminotransferase 298 IU/L (17-59); BUN Creatinine Ratio 15.9 (6-22); Bilirubin Total 1.9 mg/dL (0.2-1.3); Blood Urea Nitrogen 24 mg/dL (9-20); Calcium 8.7 mg/dL (8.4-10.2); Carbon Dioxide 21 mmol/L (22-32); Chloride 105 mmol/L (98-107); Estimated Glomerular Filt Rate 45.5 mL/min (>60); Glucose 239 mg/dL (80-110); Potassium 5.1 mmol/L (3.4-5.1); Sodium 134 mmol/L (137-145)
[2021-10-13 10:09] LABS: Creatine Kinase 67 U/L (55-170)
[2021-10-13 10:11] LABS: Lactate (Lactic Acid) 2.9 mmol/L (0.7-2.1)
[2021-10-13 10:12] LABS: HEMOLYSIS 56 (0-50)
[2021-10-13] MEDS: FUROSEMIDE 40 MG/4 ML VIAL IV (10:18)
[2021-10-13 10:21] LABS: NT-proBNP (BNP-Adult 18+) 22600 pg/mL (<125); Troponin I 0.027 ng/mL (0.01-0.034)
[2021-10-13 10:29] LABS: D Dimer 956 ng/mL (<230)
--- NOTE | 2021-10-13 10:40 | DI.CT.S_ITS ---
PROCEDURE: CT ANGIO CHEST PE PROTOCOL INDICATIONS: sob, tachycardia, high dimer. TECHNIQUE: After the administration of intravenous contrast, 2 mm thick sections acquired from the pulmonary apices to the posterior costophrenic angles. 3-dimensional maximum intensity projection (MIP) coronal and sagittal reformats were then acquired through the thorax. For radiation dose reduction, the following was used: automated exposure control, adjustment of mA and/or kV according to patient size. COMPARISON: [facility], CT, CT ANGIO CHEST PE PROTOCOL, 08/05/2021, 14:29. FINDINGS: Image quality: Excellent. Pulmonary arteries: Pulmonary arteries are normal in size, and demonstrate no intraluminal filling defects to suggest central pulmonary embolism. Lungs and pleura: Irregular nodular opacity in the medial right apex and elsewhere in the right upper and middle lobes. These are likely inflammatory and not significantly changed from prior study. Neoplasm cannot be strictly excluded. No new airspace opacity. Small right pleural effusion is similar. Left lung and pleural space are clear. Mediastinum: Heart size is normal, without pericardial effusion. No mediastinal or hilar adenopathy. Thoracic aorta is normal in caliber and enhancement. Esophagus is normal in caliber, without hiatal hernia. Bones and chest wall: No suspicious bony lesions. Ribs and thoracic spine appear intact throughout. Thyroid gland demonstrates uniform attenuation. No axillary or supraclavicular adenopathy. Abdomen: Visualized upper abdominal solid organs appear normal in the early arterial phase of enhancement. IMPRESSION: Nodular opacities in the right upper and middle lobes, similar to the prior study obtained 08/05/2021. These are likely infectious or inflammatory, although neoplasm cannot be strictly excluded. A small right pleural effusion is also similar. No pulmonary embolism. Dictated by: Efrain Rodriguez M.D. on 10/13/2021 at 11:26 Approved by: Efrain Rodriguez M.D. on 10/13/2021 at 11:29
--- NOTE | 2021-10-13 10:40 | DI.US.S_ITS ---
PROCEDURE: US ABDOMEN LIMITED INDICATIONS: elevated lfts TECHNIQUE: Real-time scanning was performed of the abdominal and retroperitoneal organs, with image documentation. Study is limited by motion and overlying bowel gas COMPARISON: None. FINDINGS: Liver: Hepatic parenchyma shows diffuse increased echogenicity consistent with fatty infiltration. Gallbladder: Sonolucent without cholelithiasis. No gallbladder wall thickening. No pericholecystic fluid or Torres's sign. Common Bile Duct: 3.8 mm. Pancreas: Unremarkable as visualized IMPRESSION: 1. Mild hepatic fatty infiltration. Otherwise unremarkable right upper quadrant ultrasound Approved by: Ryland Bourgeois M.D. on 10/13/2021 at 11:24
[2021-10-13 11:31] LABS: Appearance Urine UA CLEAR; Bilirubin Urine UA NEGATIVE (NEGATIVE); Color Urine UA YELLOW; Glucose Urine UA TRACE g/dL (Negative); Ketones Urine UA NEGATIVE (NEGATIVE); Leukocyte Esterase Urine UA NEGATIVE (NEGATIVE); Nitrite Urine UA NEGATIVE (Negative); Occult Blood Urine UA 1+ (Negative); Protein Urine UA 3+ (Negative); Specific Gravity Urine UA 1.025 (1.000-1.035); Urobilinogen Urine UA 0.2 E.U./dL (0.2)
[2021-10-13 11:47] LABS: Granular Casts Urine 5-10/LPF; Hyaline Casts Urine 10-30/LPF
[2021-10-13 11:48] LABS: Amorphous Sediment Urine 1+
[2021-10-13 11:49] LABS: Bacteria Urine Few (2-10); RBC Urine 5-10/HPF (0-5/HPF); Squamous Epithelial Cell Urine 0-1 /HPF (0-5/HPF); WBC Urine 1-5/HPF (0-5/HPF)
[2021-10-13 11:50] LABS: Culture Indicated Urine Cult Not Indicated; Mucus Urine 1+ (Negative)
[2021-10-13 11:53] LABS: Reflexed Lactate in 2 Hours Y
[2021-10-13] MEDS: carvediloL 3.125 MG TABLET PO (12:09)
[2021-10-13] MEDS: ONDANSETRON 4 MG ODT SL (12:10)
[2021-10-13 12:28] LABS: Lactate 2HR (Lactic Acid Rflx) 2.4 mmol/L (0.7-2.1)
[2021-10-13] MEDS: ATORVASTATIN 20 MG TABLET 40 MG PO (13:26)
[2021-10-13] MEDS: SPIRONOLACTONE 25 MG TABLET 12.5 MG PO (13:27)
[2021-10-13] MEDS: lisinopriL 5 MG TABLET 2.5 MG PO (13:29)
== END 2021-10-13 13:44 | disposition home or self-care (01) ==
PROVIDERS: Emergency Provider Emergency Medicine; PCP Family Medicine
DX: I50.20 Unspecified systolic (congestive) heart failure (principal); E11.22 Type 2 diabetes mellitus with diabetic chronic kidney disease; I13.0 Hypertensive heart and chronic kidney disease with heart failure and stage 1 through stage 4 chronic kidney disease, or unspecified chronic kidney disease; N18.30 Chronic kidney disease, stage 3 unspecified; J90 Pleural effusion, not elsewhere classified; Z79.4 Long term (current) use of insulin
CPT/HCPCS: 36415; 71045; 71275; 76705; 80053; 81001; 82550; 83605; 83880; 84484; 85025; 85379; 93005; 93010; 96374; 99284; J1940; Q9967